=== PATIENT | male | born 1945 | race Caucasian/White ===

== ENCOUNTER → 2017-11-20 06:01 | Outpatient (CLI) | payer MEDICARE, SELFPAY ==
--- NOTE | 2017-11-20 11:01 | STRESSREP ---
Stress Test Report Date: 11/20/2017 Procedure: Exercise tolerance test/imaging study Indications: Shortness of breath/dyspnea; CAD; PCI Consent: Per the patient Procedure: The patient exercised on a Ben protocol for 8 minutes completing Stage II and 2 minutes of Stage III achieving a peak heart rate of 127 bpm (85 % predicted maximal heart rate) with a peak blood pressure 162/74 mmHg and a peak MET capacity of 9 METs. The baseline ECG demonstrated normal sinus rhythm with nonspecific ST/T-wave abnormality. The peak exercise ECG demonstrated approximately 1-2 mm of horizontal/downsloping ST segment depression in leads II, III, aVF, and V4 through V6 with resolution towards baseline beginning by approximately 1 minute in recovery. There was a rare PVC during exercise. The functional capacity was considered good. There was no complaint of chest discomfort during exercise or recovery. The examination was discontinued secondary to dyspnea. Impression: 1. Technically adequate (percent predicted maximal heart rate greater than 85%) exercise tolerance test 2. Peak exercise ECG straight at approximately 1-2 mm of horizontal/downsloping ST segment depression in leads II, III, aVF, and V4 through V6 with resolution towards baseline beginning by approximately 1 minute in recovery 3. Was a rare PVC during exercise. 4. Nuclear images pending Myocardial perfusion imaging study: Technique: The patient was injected with 14.8 mCi of technetium 99m Cardiolite and subsequently rest SPECT Cardiolite nuclear imaging was obtained in the horizontal long, vertical long, and short axis views. The patient exercised on a Ben protocol for 8 minutes completing Stage II and 2 minutes of Stage III achieving a peak heart rate of 127 bpm (85 % predicted maximal heart rate) with a peak blood pressure 162/74 mmHg and a peak MET capacity of 9 METs. The patient was injected with 44.1 mCi of technetium 99m Cardiolite and subsequently stress SPECT Cardiolite nuclear imaging was obtained in the horizontal long, vertical long, and short axis views. A gated Cardiolite study at peak stress was obtained. Interpretation: Rest and stress SPECT Cardiolite nuclear imaging status post realignment, normalization, and attenuation correction, demonstrates the appearance of a small area of diminished tracer uptake near the apical segments which appears to be somewhat more prominent at rest as opposed to stress. There is end systolic thickening and brightening. The gated Cardiolite study demonstrates myocardial thickening and inward wall motion. The reported LVEF is 73 %. Impression: 1. Rest and stress SPECT Cardiolite nuclear imaging demonstrate a small area of diminished tracer uptake near the apical segments which appears to be somewhat more prominent at rest as opposed to stress appearing compatible with a combination of shifting soft tissue attenuation/artifact and physiologic apical thinning is consider diagnostic for associated stress-induced myocardial ischemia or previous myocardial injury/infarction. 2. The gated Cardiolite study reports an LVEF of the 73%. This note was generated with [employer] software. It may contain incorrect words, spelling, and punctuation that were not noted in checking the note before signing.
--- NOTE | 2017-11-20 11:08 | STRESSREP_ITS ---
Stress Test Report Date: 11/20/2017 Procedure: Exercise tolerance test/imaging study Indications: Shortness of breath/dyspnea; CAD; PCI Consent: Per the patient Procedure: The patient exercised on a Ben protocol for 8 minutes completing Stage II and 2 minutes of Stage III achieving a peak heart rate of 127 bpm (85 % predicted maximal heart rate) with a peak blood pressure 162/74 mmHg and a peak MET capacity of 9 METs. The baseline ECG demonstrated normal sinus rhythm with nonspecific ST/T-wave abnormality. The peak exercise ECG demonstrated approximately 1-2 mm of horizontal/downsloping ST segment depression in leads II, III, aVF, and V4 through V6 with resolution towards baseline beginning by approximately 1 minute in recovery. There was a rare PVC during exercise. The functional capacity was considered good. There was no complaint of chest discomfort during exercise or recovery. The examination was discontinued secondary to dyspnea. Impression: 1. Technically adequate (percent predicted maximal heart rate greater than 85% ) exercise tolerance test 2. Peak exercise ECG straight at approximately 1-2 mm of horizontal/ downsloping ST segment depression in leads II, III, aVF, and V4 through V6 with resolution towards baseline beginning by approximately 1 minute in recovery 3. Was a rare PVC during exercise. 4. Nuclear images pending Myocardial perfusion imaging study: Technique: The patient was injected with 14.8 mCi of technetium 99m Cardiolite and subsequently rest SPECT Cardiolite nuclear imaging was obtained in the horizontal long, vertical long, and short axis views. The patient exercised on a Ben protocol for 8 minutes completing Stage II and 2 minutes of Stage III achieving a peak heart rate of 127 bpm (85 % predicted maximal heart rate) with a peak blood pressure 162/74 mmHg and a peak MET capacity of 9 METs. The patient was injected with 44.1 mCi of technetium 99m Cardiolite and subsequently stress SPECT Cardiolite nuclear imaging was obtained in the horizontal long, vertical long, and short axis views. A gated Cardiolite study at peak stress was obtained. Interpretation: Rest and stress SPECT Cardiolite nuclear imaging status post realignment, normalization, and attenuation correction, demonstrates the appearance of a small area of diminished tracer uptake near the apical segments which appears to be somewhat more prominent at rest as opposed to stress. There is end systolic thickening and brightening. The gated Cardiolite study demonstrates myocardial thickening and inward wall motion. The reported LVEF is 73 %. Impression: 1. Rest and stress SPECT Cardiolite nuclear imaging demonstrate a small area of diminished tracer uptake near the apical segments which appears to be somewhat more prominent at rest as opposed to stress appearing compatible with a combination of shifting soft tissue attenuation/artifact and physiologic apical thinning is consider diagnostic for associated stress-induced myocardial ischemia or previous myocardial injury/infarction. 2. The gated Cardiolite study reports an LVEF of the 73%. This note was generated with [employer] software. It may contain incorrect words, spelling, and punctuation that were not noted in checking the note before signing.
== END ==
PROVIDERS: Family Provider Family Medicine; PCP Family Medicine; Visit Provider Physician Assistant Medical
DX: I25.10 Atherosclerotic heart disease of native coronary artery without angina pectoris (principal); R06.00 Dyspnea, unspecified
CPT/HCPCS: 78452; 93017; A9500; A4216

== ENCOUNTER → 2017-12-07 07:55 | Day surgery (SDC) | payer MEDICARE, SELFPAY ==
--- NOTE | 2017-11-29 13:20 | RAD_ITS ---
STUDY: X-RAY CHEST REASON FOR EXAM: Male, 72 years old. SOB TECHNIQUE: Frontal and lateral views of the chest. COMPARISON: 09/24/2014 FINDINGS: Stable hiatal hernia. Carotid calcifications on the right. COPD without acute alveolar disease. There is no demonstrated pleural abnormality. Normal size heart. Normal mediastinum and shanae. Normal visualized pulmonary arteries. Normal visualized aortic arch and descending thoracic aorta. Normal visualized thoracic spine. Normal visualized ribs, clavicles, and shoulders. There is no demonstrated abnormality of the visualized soft tissue structures of the upper abdomen. RAD/Chest PA and Lateral IMPRESSION: COPD without acute alveolar disease. Electronically Signed: Beni Mcguire MD at 6:06 EDT Tel , Service support ,
[2017-12-06 07:50] VITALS: BMI 32.1
[2017-12-07 08:05] LABS: Prothrombin Time Fingerstick 12.7 SEC (11.9-14.4)
--- NOTE | 2017-12-07 11:21 | ECHOD_ITS ---
Reason For Study: MURMUR Procedure This was a 2D Doppler, Color Flow transthoracic echocardiogram. The exam was of fair technical quality due to body habitus. The study was technically difficult. Exam performed in department. Left Ventricle Normal LV size. Left ventricular systolic function is normal. The estimated ejection fraction is 60 %. Unable to assess diastolic dysfunction. No regional wall motion abnormalities noted. Right Ventricle Normal RV size. Normal systolic function. Atria The left atrium is moderately enlarged. The right atrium is mildly enlarged. No doppler evidence for ASD. Mitral Valve There is no mitral annular calcification. Normal mitral valve. Trivial mitral valve insufficiency. Tricuspid Valve Normal tricuspid valve. Trivial tricuspid valve insufficiency. Right ventricular systolic pressure estimated to be 39 mmHg. Aortic Valve Trisinus/trileaflet aortic valve. Mild diffuse aortic valve thickening. Mild diffuse aortic valve calcification. Aortic valve sclerosis / mild aortic valve stenosis. Pulmonic Valve The pulmonic valve is not well visualized. Trivial pulmonic valve insufficiency. Great Vessels Normal sized aortic root. Pericardium/Pleural Trivial pericardial effusion. There are no echocardiographic indications of cardiac tamponade. MMode/2D Measurements & Calculations LVIDd: 5.1 cm IVSd: 1.2 cm LVOT diam: 2.0 cm LVIDs: 2.9 cm LVPWd: 1.1 cm LVOT area: 3.0 cm2 RVDd: 3.0 cm FS: 43.9 % Ao root diam: 3.0 cm LAV(MOD-bp): 63.2 ml EDV(MOD-sp4): 97.6 ml LAV(MOD-bp) Indexed: 29.1 ml/m2 ESV(MOD-sp4): 34.7 ml LAV(MOD-sp2): 52.6 ml EF(MOD-sp4): 64.5 % LAV(MOD-sp4): 70.3 ml SV(MOD-sp4): 63.0 ml LA A4 area: 24.0 cm2 RA A4 area: 20.1 cm2 Time Measurements MV dec time: 0.20 sec Doppler Measurements & Calculations MV E max omar: 84.4 cm/sec Lat Peak E' Omar: 10.8 cm/sec Med Peak E' Omar: 9.4 cm/sec MV A max omar: 64.9 cm/sec E/E' lat: 7.8 E/E' med: 9.0 MV E/A: 1.3 Ao V2 max: 251.3 cm/sec LV V1 max: 163.8 cm/sec SV(LVOT): 115.6 ml Ao max P.3 mmHg LV V1 max P.7 mmHg Ao V2 mean: 174.5 cm/sec LV V1 mean P.3 mmHg Ao mean P.7 mmHg LV V1 mean: 105.5 cm/sec Ao V2 VTI: 55.1 cm LV V1 VTI: 38.5 cm BASHIR(I,D): 2.1 cm2 BASHIR(V,D): 2.0 cm2 PA V2 max: 114.7 cm/sec TR max omar: 300.2 cm/sec TR max P.1 mmHg Interpretation Summary The study was technically difficult. Left ventricular systolic function is normal. The estimated ejection fraction is 60 %. The left atrium is moderately enlarged. The right atrium is mildly enlarged. Trivial mitral valve insufficiency. Trivial tricuspid valve insufficiency. Aortic valve sclerosis / mild aortic valve stenosis. Trivial pulmonic valve insufficiency. Trivial pericardial effusion. There are no echocardiographic indications of cardiac tamponade. Right ventricular systolic pressure estimated to be 39 mmHg. Unable to assess diastolic dysfunction. Ordering Physician: Jason Stevenson Referring Physician: KEIRY KAY Performed By: Shadia Hoffman RDCS
--- NOTE | 2017-12-07 19:10 | CL.D_ITS ---
Patient Name: RAVI ADDISON Study Date: 12/07/2017 Performing: Jason Stevenson MD Ht: 70 inches 178 cm : 1945 Wt: 225.2 lbs 102 kg Age: 72 Gender: male BSA: 2.2 PROCEDURE(S) PERFORMED [id number] CLINICAL PROFILE AND INDICATIONS Indications: Stable Known CAD Heart Failure: None Stress/Imaging Stress Test w/SPECT MPI: Yes Result: PositiveStress Test with SPECT MPI: Positive Angina Classification Anginal Classification w/in 2 Weeks: CCS III CAD Presentations: Other: Shortness of Breath CONCLUSIONS RECOMMENDATIONS Risk factor modification Medical therapy Surgery consult for coronary revascularization DESCRIPTION OF PROCEDURE The patient arrived to the procedure lab. The risks and benefits of the procedure as well as a full d escription of our services here and current unavailability of surgical backup were fully explained to the patient and/or their significant other prior to the catheterization. The Timeout was completed, verifying the correct patient and procedure. The patient's procedural site was prepped and draped in the usual fashion. Local anesthetic was given subcutaneously to right radial region with Lidocaine 2% . Using a modified Seldinger technique, arterial access was obtained via the right radial artery, a 6 Fr sheath was inserted. Left Coronary Artery selective angiography was performed in multiple views u sing a 5 Fr. 4.0 Reserve catheter. Right Coronary Artery selective angiography was then performed in mu ltiple views using a 4 Fr. 3DRC catheter.The arterial sheath was pulled and a TR Band was applied for hemostasis CORONARY ANGIOGRAPHY DOMINANCE: Right Dominant LEFT HEART ASSESSMENT Left Ventricular Ejection Fraction: Not assessed LEFT MAIN: Upon catheter engagement: decreased arterial wave form and pressure damping and decreased reflux into the left coronary cusp, Proximal: 50-75 % Stenosis LEFT ANTERIOR DECENDING ARTERY: PROX LAD: Eccentric: 75 % Stenosis CIRCUMFLEX ARTERY: Mild luminal irregularities RIGHT CORONARY ARTERY: PROX RCA: Diffuse: Eccentric: 10-25 % Stenosis DISTAL RCA: Previously placed stent is patent RIGHT AV SEGMENT: Previously placed stent is patent COMPLICATIONS No Complications PROCEDURE MEDICATIONS Versed 1 mg IV Fentanyl 50 mcg IV Oxygen: 2 L/min via nasal cannula Heparin given IA 12/07/2017 10:17:42 Verapamil 2.5mg, Ntg 100mcgs, 2000 units of Heparin given IA 12/07/2017 10:17:42 SUMMARY OF HEMODYNAMIC DATA Time AIR REST ECG 08:36:58 AO 100/57 (76) SA 10:20:37 Signed By Jason Stevenson MD On 12/07/2017 19:09:39 Jason Stevenson MD
== END ==
PROVIDERS: Family Provider Family Medicine; PCP Family Medicine; Visit Provider Internal Medicine Cardiovascular Disease
DX: I25.10 Atherosclerotic heart disease of native coronary artery without angina pectoris (principal); I48.0 Paroxysmal atrial fibrillation; I10 Essential (primary) hypertension; E78.00 Pure hypercholesterolemia, unspecified; J84.10 Pulmonary fibrosis, unspecified; E05.90 Thyrotoxicosis, unspecified without thyrotoxic crisis or storm; R01.1 Cardiac murmur, unspecified; Z87.891 Personal history of nicotine dependence; Z96.659 Presence of unspecified artificial knee joint; Z95.5 Presence of coronary angioplasty implant and graft; Z79.82 Long term (current) use of aspirin; Z79.01 Long term (current) use of anticoagulants; Z79.899 Other long term (current) drug therapy
CPT/HCPCS: 36416; 71046; 85610; 93306; 93454; 93458; 99152; 99153; J7040; Q9967; A4216; C1769; C1894

== ENCOUNTER → 2017-12-27 07:39 | Outpatient (CLI) | payer MEDICARE, SELFPAY ==
--- NOTE | 2017-12-27 07:43 | ECHOTEE_ITS ---
Reason For Study: AORTIC VALVE DISORDER Medication JUAN probe passed without difficulty. No complications were noted. Cetacaine Topical [place] given X3 orally. Versed 2 mg given slow IVP. Fentanyl 100 mcg given slow IVP. Performed a rapid injection of agitated mix of 9 cc saline and 1cc air to assess for atrial septal defect. Left Ventricle Normal LV size. Apical false tendon noted. Left ventricular systolic function is normal. The estimated ejection fraction is 65 %. No regional wall motion abnormalities noted. Right Ventricle Normal RV size. Normal systolic function. Atria No doppler evidence for ASD. Bubble contrast study negative for right to left interatrial shunt. The left atrium is moderately enlarged. There is no sponatenous contrast in the left atrium. No thrombus is detected in the left atrial appendage. The right atrium is mildly enlarged. There is no sponatenous contrast in the right atrium. No RA / appendage thrombus identified. Mitral Valve There is mild mitral annular calcification. Mild diffuse mitral valve thickening. Mild (1+) mitral valve insufficiency. Tricuspid Valve Normal tricuspid valve. Trivial tricuspid valve insufficiency. Aortic Valve Trisinus/trileaflet aortic valve. Mild diffuse aortic valve thickening. Mild focal aortic valve calcification. Mild aortic stenosis. Aortic valve area by planimetry: approximately 2.0 cm^2. Pulmonic Valve The pulmonic valve is not well visualized. Vessels Mild atherosclerosis of the aortic arch. Pericardium No pericardial effusion. Interpretation Summary Left ventricular systolic function is normal. The estimated ejection fraction is 65 %. Apical false tendon noted. The left atrium is moderately enlarged. There is no sponatenous contrast in the left atrium. No thrombus is detected in the left atrial appendage. The right atrium is mildly enlarged. There is mild mitral annular calcification. Mild diffuse mitral valve thickening. Mild (1+) mitral valve insufficiency. Trivial tricuspid valve insufficiency. Mild aortic stenosis. Aortic valve area by planimetry: approximately 2.0 cm^2 Mild atherosclerosis of the aortic arch. Bubble contrast study negative for right to left interatrial shunt. Ordering Physician: Jason Stevenson Referring Physician: KEIRY KAY Performed By: Brigida Guzman RDCS, RVT ??? Reason For Study: AORTIC VALVE DISORDER Interpretation Summary Left ventricular systolic function is normal. The estimated ejection fraction is 65 %. Apical false tendon noted. The left atrium is moderately enlarged. There is no sponatenous contrast in the left atrium. No thrombus is detected in the left atrial appendage. The right atrium is mildly enlarged. There is mild mitral annular calcification. Mild diffuse mitral valve thickening. Mild (1+) mitral valve insufficiency. Trivial tricuspid valve insufficiency. Mild aortic stenosis. Aortic valve area by planimetry: approximately 2.0 cm^2 Mild atherosclerosis of the aortic arch. Bubble contrast study negative for right to left interatrial shunt. Ordering Physician: Jason Stevenson Referring Physician: KEIRY KAY Performed By: Brigida Guzman RDCS, RVT
== END ==
PROVIDERS: Family Provider Family Medicine; PCP Family Medicine; Visit Provider Internal Medicine Cardiovascular Disease
DX: I35.0 Nonrheumatic aortic (valve) stenosis (principal); I35.9 Nonrheumatic aortic valve disorder, unspecified
CPT/HCPCS: 93312; 93320; 93325; J7040; A4216

== ENCOUNTER → 2018-01-03 15:01 | Outpatient (CLI) | payer MEDICARE, SELFPAY ==
--- NOTE | 2018-01-03 15:04 | RAD_ITS ---
STUDY: X-RAY - CERVICAL SPINE REASON FOR EXAM: Male, 72 years old. Cervicalgia. TECHNIQUE: 6 view(s) of the cervical spine were obtained. COMPARISON: None FINDINGS: Slight anterior listhesis C3-C4, chronic. Alignment of the vertebral bodies is otherwise normal. Vertebral body height is normal at each level. Generalized osteopenia. Mild to moderate multilevel facet arthropathy/hypertrophy most prominent in the upper cervical spine left greater than right. The odontoid and lateral masses are intact and aligned. Prevertebral soft tissues are normal. C3-C4 moderate disc narrowing, spondylolisthesis, and uncovertebral joint hypertrophy and moderate facet hypertrophy. C4-C5 moderately severe disc narrowing, facet moderate hypertrophy and uncovertebral joint hypertrophy. C5-C6 moderate disc narrowing, facet hypertrophy and uncovertebral joint hypertrophy. C6-C7 severe disc narrowing, endplate sclerosis, uncovertebral joint hypertrophy and mild facet hypertrophy. C7-T1 mild disc narrowing and uncovertebral joint hypertrophy. There is evidence of prominent carotid bulb atherosclerotic ossifications on the right. RAD/Cerv Spine 4 or 5 Views IMPRESSION: Multilevel cervical spondylosis. No acute cervical spine fracture or traumatic subluxation. Given the degree of facet hypertrophy and disc degeneration at multiple levels, significant stenosis is highly likely. Correlate for any symptoms of cervical radiculopathy that may indicate the presence of nerve root impingement and consider follow-up MRI of the cervical spine for more complete characterization. Electronically Signed: Chao Trejo, at 15:47 EDT Tel , Service support ,
== END ==
PROVIDERS: Family Provider Family Medicine; PCP Family Medicine; Visit Provider Family Medicine
DX: M54.2 Cervicalgia (principal)
CPT/HCPCS: 72050

== ENCOUNTER → 2018-01-15 08:52 | Outpatient (CLI) | payer MEDICARE, SELFPAY ==
--- NOTE | 2018-01-15 14:42 | PFT ---
INTRODUCTION: The patient is a 72-year-old male that presents for pulmonary function testing secondary to a diagnosis of shortness of breath. Respiratory therapy reports good patient effort. Bronchodilators were used during testing. INTERPRETATION: Forced expiration spirometry demonstrates no evidence of a large airways obstructive ventilatory defect. There was no significant response to aerosolized bronchodilators, based upon strict ATS criteria. Spirograms are of good quality and plateau normally. Body plethysmography was performed and reveals a borderline mild restrictive ventilatory impairment. The remainder of the lung volumes are symmetrically reduced. The patient's decreased ERV could be secondary to a body habitus effect. Diffusing capacity by single breath CO is mildly reduced at 64% of predicted. When compared to previous pulmonary function studies dated September 2014 there has been reductions in the patient's FVC and FEV1. The patient's DLCO has also decreased by 15%. IMPRESSION: These pulmonary function studies demonstrate the presence of a borderline mild restrictive ventilatory impairment with a symmetric reduction in diffusing capacity.
== END ==
PROVIDERS: Family Provider Family Medicine; PCP Family Medicine
DX: I48.0 Paroxysmal atrial fibrillation (principal); R06.02 Shortness of breath
CPT/HCPCS: 94060; 94726; 94729

== ENCOUNTER → 2018-04-16 13:45 | Outpatient (CLI) | payer MEDICARE, SELFPAY ==
[2018-04-16 15:03] LABS: PSA,Total - Annual Screen 0.43 ng/mL (0.00-4.00)
== END ==
PROVIDERS: Family Provider Family Medicine; PCP Family Medicine; Referring Provider Urology; Visit Provider Urology
DX: Z12.5 Encounter for screening for malignant neoplasm of prostate (principal)
CPT/HCPCS: 36415; 84153; G0103

== ENCOUNTER → 2018-04-19 12:48 | Outpatient (CLI) | payer MEDICARE, SELFPAY ==
--- NOTE | 2018-04-19 12:54 | PCM.CR.ITP ---
General Information - General Information Admitting Diagnosis: Z95.1 CABG 03/05/18 - Education/Goals Barriers to Learning: None Cardiac Rehabilitation Goals: 1. Maintain the individual as the primary focus of care. 2. To improve the patient's quality of life. 3. Identification of cardiac risk factors and provide cardiac risk factor management. 4. Enhance the psychosocial status of the patient. 5. Reconditioning enough to allow the patient to resume customary activities. 6. Control symptoms of cardiac disease Scale for measuring improvement of personal goals: Enter appropriate number in Comments. 2 = Unchanged. 3 = Slightly Better. 4 = Moderate Improvement. 5 = Met my Goal Personal Goals: Initial Assessment: Improve energy level, Improve muscle strength and endurance, Improve diet and eating habits (eat healthier), Control risk factors (learn risk factor modification) Exercise - Initial Assessment - Visit Date of Eval: 04/19/18 - inblas beywa - Stages of Change Stages of Change:: Contemplate - Exercise Prescription Mode:: Treadmill, Biodyne, Airdyne, NuStep Angina with exercise?: No Target Heart Rate:: 112-120 - Hypertension Do any of the following apply?: Yes - Intervention Home Exercise/Activity Goal:: Sitting Time <3 hrs/day - Education Goals:: Warm-up, RPE JENNIFER Scale, S/S, Safe Exercise, Self-Monitoring - Exercise Program Goals Exercise Program Goals: Aerobic Activity >30 min, B/P <130/80 Nutrition - Initial Assessment - Program Goals Nutrition Program Goals: LDL <70. Total Cholesterol <200. HDL >45. Triglycerides <150. HgbA1C <7%. BMI <25 - Visit Date of Assessment:: 04/19/18 - Stages of Change Stages of Change:: Contemplate - Diabetes Diabetes:: No - Weight Management Height: 1.78 m Weight:: 101.605 kg Total Score:: 4 - Intervention Referral to dietitian:: No Referral to Diabetic Clinic:: No Will attend diet classes:: Yes - Education Gave educational materials for:: Signs & symptoms of hypoglycemia, Signs & symptoms of hyperglycemia, Relate diabetes to coronary artery disease, Healthy eating Tobacco - Initial Assessment - Program Goals Tobacco Program Goals: Complete smoking cessation. Attend education classes. Improve Knowledge Test score - Stage of Change Stages of Change:: Contemplate - Learning Barriers Total Score:: 20 - Family Support Do you have family support?: Yes - Tobacco Use Tobacco Use: Non-smoker Do you use smokeless tobacco?: No - Intervention Smoking Cessation Referral:: No Individual Education/Counseling:: No Education Schedule Given:: Yes - Education Gave educational material for:: Tobacco triggers, Coronary artery disease, Risk factors, Sexuality, Medical compliance, Cardiac A&P, Angina signs & symptoms Psychosocial - Initial Assess - Target Goals Target Goals: Assess presence or absence of depression. Using a valid screening tool, maximizes coping skills. Positive support system - Stages of Change Stages of Change:: Contemplate - Psychosocial Test Tool Used:: HANDS Depression Questionnaire Total Mood Screening Score:: 4 Self-Efficacy Score:: 8 - Intervention PS - Interventions: Yes Attend Stress Management Classes, Yes Uses Stress Management Skills, No Referral to Mental Health, No Referral to [facility] Case Management, No Referral to Physician - Education Gave educational materials for:: Coping techniques, Signs & symptoms of depression, Stress management, Relaxation techniques - Assistive Devices Assistive Devices:: None Fall Risk Assessed:: Yes Patient Health Questionnaire Initial Assessment 1. Little interest or pleasure in doing things: Not at all 2. Feeling down, depressed, or hopeless: Not at all 3. Trouble falling or staying asleep, or sleeping too much: More than half the days 4. Feeling tired or having little energy: Several days 5. Poor appetite or overeating: Several days 6. Feeling bad about yourself -- or that you are a failure or have let yourself or your family down: Not at all 7. Trouble concentrating on things, such as reading the newspaper or watching television: Not at all 8. Moving or speaking so slowly that other people could have noticed. Or the opposite - being so fidgety or restless that you have been moving around a lot more than usual: Not at all 9. Thoughts that you would be better off , or of hurting yourself in some way: Not at all How difficult have these problems made it for you to do your work, take care of things at home, or get along with other people?: Somewhat difficult Total Score: 4 MIKE-Q SV Test - Statements CAD is a disease of the arteries in the heart: False Examples of risk factors for heart disease: True Angina is chest pain or discomfort: True The benefits of resistance training include: True Eating more meat and dairy products: False Anti-platelet medications such as aspirin are important: True The only effective way to manage stress: False An exercise warm-up slowly increases heart rate: True Prepared, processed foods usually have high sodium: True Depression is common after a heart attack: True The statin medications lower cholesterol: True To control blood pressure, lower the amount of sodium: True If someone gets chest discomfort during walking: False Transfats are partially hydrogenated vegetable oils: True Sleep apnea that is not treated increases the risk: False To control cholesterol, one should become a vegetarian: False Someone knows if he/she is exercising at the right level: True Diabetes cannot be prevented with exercise & health eating: False Stress is a large risk for heart attack: True A diet that can help lower blood pressure is rich in: True - Total Score Total Correct Responses: 20 Self-Efficacy Initial Assessment We would like to know how confident you are in doing certain activities. Please select your confidence level for:: Select your confidence level for the following using the scale 1-10 where 1 is not at all confident and 10 is totally confident. Your score is the average of all 6 responses. Fatigue: How confident are you that you can keep the fatigue caused by your disease from interfering with the things you want to do? Select Number: 10 Physical Discomfort or Pain: How confident are you that you can keep the physical discomfort or pain of your disease from interfering with the things you want to do? Select Number: 10 Emotional Distress: How confident are you that you can keep the emotional distress caused by your disease from interfering with the things you want to do? Select Number: 8 Other Symptoms or Health Problems: How confident are you that you can keep other symptoms or health problems from interfering with the things you want to do? Select Number: 8 Different Tasks and Activities: How confident are you that you can do the different tasks and activities needed to manage your health condition so as to reduce your need to see a doctor? Select Number: 8 Medication: How confident are you that you can do things other than just taking medication to reduce how much your illness affects your everyday life? Select Number: 8 Total Score:: 8 Nutrition Survey - Nutrition Survey Instructions Scoring Instructions: Scoring is as follows: Yes = 1 points. No = 0 point. Patient score that is >/=12 is considered to be at potential nutritional risk and could benefit from a referral to a registered dietitian. - Nutrition Survey Initial Have you lost >10 lbs over the past 2 months without trying?: Yes Are you following a special diet at home for diabetes, low fat, or low salt?: No Are you interested in meeting with a dietitian for help understanding your diet?: Yes Do you eat less than 3 meals a day?: No Do you eat fatty meats (garnica, sausage, ribs, etc), fried foods, desserts, large amounts of salad dressings, margarine, butter, or cheese most days?: Yes Do you have food allergies? [Enter types in comment field]: No Do you eat in restaurants more than 3 times a week?: No Do you season food with salt, seasoning salt, or garlic salt?: No Do you used canned, boxed, frozen meals, or soups, seasoning packets?: Yes Total Score:: 4
--- NOTE | 2018-04-19 12:55 | PCM.CR.HP2 ---
CR - History & Physical - General Arrival date:: 04/19/18 Arrival time:: 12:56 Date of Referral:: 03/05/18 Date of CR Evaluation:: 04/19/18 Referring Physician: Dr. Jason Stevenson Primary Diagnosis: Z95.1 CABG - History of Present Cardiac Event Onset Date: Enter Onset Date of cardiac illnesses in Comment field below Coronary Artery Bypass Graft:: Yes - Medications Home Medications: Ambulatory Orders Medication Instructions Recorded alfuzosin ER 10 mg tablet,extended 10 mg PO QDAY 06/27/17 release 24 hr finasteride 5 mg tablet 5 mg PO QDAY 06/27/17 hydrochlorothiazide 25 mg tablet 25 mg PO QDAY 06/27/17 aspirin 81 mg tablet,delayed 81 mg PO QDAY 08/09/17 release warfarin 2 mg tablet 2 mg PO .COMPLEX #90 tab 10/02/17 warfarin 6 mg tablet 6 mg PO ONCE #90 tab 10/02/17 methimazole 5 mg tablet 2.5 mg PO .COMPLEX tab 11/28/17 cholecalciferol (vitamin D3) 2,000 1,000 unit PO DAILY cap 04/15/18 unit capsule diltiazem CD 120 mg 120 mg PO DAILY cap 04/15/18 capsule,extended release 24 hr pravastatin 40 mg tablet 40 mg PO QHS tab 04/15/18 fluticasone 50 mcg/actuation nasal 1 spray INTRANASAL DAILY 04/18/18 spray,suspension magnesium oxide 400 mg tablet 400 mg PO DAILY tab 04/18/18 metoprolol tartrate 25 mg tablet 25 mg PO BID #180 tab 04/18/18 pyridoxine (vitamin B6) 50 mg 50 mg PO DAILY 04/18/18 capsule - Allergies Allergies/Adverse Reactions: Allergies amiodarone Adverse Reaction (Severe, Verified 04/18/18 13:51) pulmonary fibrosis Hsgmhfo-Pec-Rgq Reductase Inhibitor Adverse Reaction (Severe, Verified 04/18/18 13:51) myalgias - Sleep Disorder Evaluation Hx of Sleep Apnea: Yes Do you snore loudly (louder than talking or can be heard through closed doors)?: Yes - uses machine Do you often feel tired/ fatigued/ sleepy during daytime?: No Has anyone observed you stop breathing during sleep?: No History of Hypertension (for STOP score): Yes STOP Results: Positive Advanced Directives - Advanced Directives Power of Transformer Inspector: Yes Living Will: Yes Advance Directives Information Provided: Yes Advance Directives on File: Yes DNR Order?:: No Past Medical History - Past Medical Illness Medical History: Past Medical History (Last Reviewed 04/18/18 @ 13:57 by Heike Rodriguez) Essential hypertension (Chronic) I10 Paroxysmal atrial fibrillation (Acute) I48.0 Presence of stent in coronary artery (Chronic) Onset Date: ~04/2013 Z95.5 PTCA with KENDRA to proximal 3rd right posterolateral artery 04/27 Abnormal nuclear stress test (Acute) R94.39 Pulmonary fibrosis (Chronic) J84.10 Hyperlipidemia (Chronic) E78.5 Shortness of breath (Chronic) R06.02 Atherosclerotic heart disease of [place] coronary artery without angina pectoris (Chronic) I25.10 PTCA with KENDRA to proximal 3rd right posterolateral artery 04/27 Hyperthyroidism (Chronic) E05.90 Murmur, cardiac (Chronic) R01.1 Paroxysmal atrial fibrillation (Chronic) I48.0 Nontoxic nodular goiter E04.9 - Past Surgical History Surgical History: Past Surgical History (Last Reviewed 04/18/18 @ 13:57 by Heike Rodriguez) S/P coronary artery bypass graft x 3 (Chronic) Onset Date: ~02/28/18 Z95.1 CABG x3- JUAREZ to LAD, reverse SVG to the diagonal branch and SVG to the OM; exclusion of the left atrial appendage with a 40mm AtriCure clip @ [facility] Postsurgical percutaneous transluminal coronary angioplasty (PTCA) status Z98.61 PTCA with KENDRA to proximal 3rd right posterolateral artery 04/27 History of cardiac radiofrequency ablation Onset Date: ~12/01/05 Z98.890 for Atrial Flutter History of carpal tunnel release Z98.890 History of knee replacement Z96.659 Bilateral History of thyroid surgery Z98.890 thyroid lobectomy Rt lobe with isthmusectomy - Family History Summary Family History: Family History (Last Reviewed 04/18/18 @ 13:57 by Heike Rodriguez) Father CAD (coronary artery disease) Myocardial infarction Mother CAD (coronary artery disease) Myocardial infarction Sister , from ASA allergy Asthma Social History - Smoking History Smoking Status: Former smoker Years Smokin Hx Tobacco Use: Yes Hx Smoking Exposure: Yes - Alcohol Use Alcohol Usage: No - Substance Abuse Hx Substance Use: No - Occupation Occupation (List type of work in comments):: Employed Hours worked per day:: 6 - Hobbies, Recreation, Social Activities Hobbies: Other - trap shooting Recreational Activities: I am able to engage in all my recreational activities, I am able to engage in a few activities Social Environment - Status Marital Status: - Current Living Arrangements Living Environment:: Spouse - Children How many children do you have?: 2 Do any of your children live nearby?: Yes - Safety Do you feel safe in your surroundings?: Yes - Assistance Do you need any assistance at home?: none Review of Systems - Review of Systems Hints: Right click = Denies ([place]). Left click = Reports ([place]) Review of Present Symptoms: Reports: Heart Arrhythmia/Irregularities - A-fib, Appetite - Normal. Denies: Shortness of Breath at Rest, Shortness of Breath with Exertion, PVD, Operative Discomfort, Angina, Wound Healing, Dizziness/Lightheadedness, Fatigue, Appetite - Special Diet, Sleep - Normal - wakes up, Sexual Changes - Pain Is Patient Pain Free?: Yes Pain Location: none Risk Factor Assessment - Chief Complaint Chief Complaint: Z95.1 CABG - Vital Signs Pulse Ox: 96 - Pulse Pulse Rate: 80 Pulse Rhythm: Irregular - Hypertension Blood Pressure Sitting - Left Arm: 100/60 - Stress Stress: Home/Family - Diabetes Nutrition Referral for Diabetes: No - Obesity Height: 1.78 m Weight:: 101.605 kg Weight in Pounds: 224.0 lbs Weight Source: Standing Scale Body Mass Index (BMI): 32.1 Nutritional Referral for Obesity: No - Physical Inactivity Physical Inactivity: Reg Exercise 30 min/day - Risk Stratification Risk Guidelines: Moderate Risk: Risk Factor for Smoking, Risk Factor for Diabetes, Risk Factor for Obesity, Risk Factor for Sedentary Lifestyle, Risk Factor for Depression, Highest Risk: Risk Factor for Dyslipidemia, Risk Factor for Hypertension - For Smoking Smoking Risk Guidelines: Smoking Low Risk: None or quit greater than 6 months ago. Smoking Moderate Risk: Smoker or quit 6 months or less ago. Smoking High Risk: Smoker - For Dyslipidemia Dyslipidemia Risk Guidelines: Low Risk: Moderate Risk: High Risk: 15-25% fat 25.1-29% fat >/= 30% fat. <7% sat fat 7-9% sat fat >9% sat fat. <150 mg chol 150-299 mg chol >/= 300 mg chol. LDL <100 LDL 100-129 LDL >/= 130. Chol/HDL ratio <5.0 Chol/HDL ratio 5.0-6.0 Chol/HDL ratio >6.0. Triglycerides <100 Triglycerides 100-149 Triglycerides >/= 150 - For Diabetes Mellitus Diabetes Risk Guidelines: Diabetes Low Risk: HgA1c <6.5% and/or FBG <120. Diabetes Moderate Risk: HgA1c 6.6-7.9% and/or FBG 120-180. Diabetes High Risk: HgA1c >/= 8% and/or FBG >180 - For Obesity/Overweight Obesity/Overweight Risk Guidelines: Obesity Low Risk: BMI <25.0. Obesity Moderate Risk: BMI 25-29.9. Obesity High Risk: BMI >/= 30.0 - For Hypertension Hypertension Risk Guidelines: Hypertension Low Risk: Systolic <120 and Diastolic <80. Hypertension Moderate Risk: Systolic 120-139 and Diastolic 80-89. Hypertension High Risk: Systolic >/= 140 and Diastolic >/= 90 - For Sedentary Lifestyle Sedentary Lifestyle Risk Guidelines: Sedentary Lifestyle Low Risk: >/= 1,500 kcal/week. Sedentary Lifestyle Moderate Risk: 700-1,499 kcal/week. Sedentary Lifestyle High Risk: < 700 kcal/week - For Depression Depression Risk Guidelines: Depression Low Risk: Not clinically depressed. Depression Moderate Risk: Mildly depressed. Depression High Risk: Clinically depressed - Family History Family History: Family History (Last Reviewed 04/18/18 @ 13:57 by Heike Rodriguez) Father CAD (coronary artery disease) Myocardial infarction Mother CAD (coronary artery disease) Myocardial infarction Sister Asthma Motivation - Motivation to Participate On a scale of 1 to 10, how prepared are you to commit to attending program?: 10 What do you see as barriers to successfully being able to complete the program?: none What do you see as the benefits of succesfully completing the program? In other words, what do you hope to get out of participating in the program?: improved strength ane endurance Are there issues you are dealing with that will interfere with completing the program?: none Do you have a spouse or signficant other, family or friends who will help support you to complete the program?: yes
[2018-04-19 13:53] VITALS: BP 100/60; PULSE 80; O2SAT 96; BMI 32.1
== END ==
PROVIDERS: Family Provider Family Medicine; PCP Family Medicine; Visit Provider Internal Medicine Cardiovascular Disease
DX: I25.10 Atherosclerotic heart disease of native coronary artery without angina pectoris (principal); R94.39 Abnormal result of other cardiovascular function study; I10 Essential (primary) hypertension; I48.0 Paroxysmal atrial fibrillation; J84.10 Pulmonary fibrosis, unspecified; E78.5 Hyperlipidemia, unspecified; E05.90 Thyrotoxicosis, unspecified without thyrotoxic crisis or storm; E04.9 Nontoxic goiter, unspecified; Z95.1 Presence of aortocoronary bypass graft; Z98.61 Coronary angioplasty status; Z79.82 Long term (current) use of aspirin; Z79.01 Long term (current) use of anticoagulants; Z79.899 Other long term (current) drug therapy; Z87.891 Personal history of nicotine dependence

== ENCOUNTER → 2018-04-23 11:18 | Outpatient (CLI) | payer MEDICARE, SELFPAY ==
--- NOTE | 2018-04-23 15:26 | STRESSREP ---
Stress Test Report Date: 04/23/2018 Procedure: Exercise tolerance test Indications: CAD; status post CABG; post PCI; atrial fibrillation precardiac rehabilitation Consent: Per the patient Procedure: The patient exercised on a Ben protocol for 3 minutes and 30 seconds completing Stage I and 30 seconds of Stage II achieving a peak heart rate of 123 bpm (82 % predicted maximal heart rate) with a peak blood pressure 146/78 mmHg and a peak MET capacity of approximately 5 MET's. The baseline ECG demonstrated atrial fibrillation; nonspecific ST and T wave abnormality. The peak exercise ECG demonstrated no obvious ECG changes. There were no cardiac dysrhythmias pretest, during exercise, or recovery. The functional capacity was considered decreased. The patient had no complaint of chest discomfort during exercise or recovery. The examination was discontinued secondary to dyspnea. Impression: 1. Technically inadequate (percent predicted maximal heart rate less than 85%) exercise tolerance test 2. Peak exercise ECG with new atrial fibrillation with nonspecific ST and T wave abnormality with no obvious ECG changes 3. There were no cardiac dysrhythmias during exercise or recovery This note was generated with [employer] software. It may contain incorrect words, spelling, and punctuation that were not noted in checking the note before signing.
== END ==
PROVIDERS: Family Provider Family Medicine; PCP Family Medicine; Referring Provider Internal Medicine Cardiovascular Disease; Visit Provider Internal Medicine Cardiovascular Disease
DX: I25.10 Atherosclerotic heart disease of native coronary artery without angina pectoris (principal)
CPT/HCPCS: 93017

== ENCOUNTER 2018-05-15 10:15 | Outpatient (RCR) | payer MEDICARE, SELFPAY | END 2018-05-15 23:59 | LOC: CR 10:15 | PROVIDERS: Family Provider Family Medicine; PCP Family Medicine; Referring Provider Internal Medicine Cardiovascular Disease; Visit Provider Internal Medicine Cardiovascular Disease | DX: Z95.1 Presence of aortocoronary bypass graft (principal) | CPT/HCPCS: 93798 ==

== ENCOUNTER 2018-06-14 10:15 | Outpatient (RCR) | payer MEDICARE, SELFPAY ==
--- NOTE | 2018-05-20 08:22 | PCM.CR.ITP ---
Exercise - 30-day Assessment - Visit Date of Eval: 05/20/18 Session #:: 11 - Stages of Change Stages of Change:: Action - Exercise Prescription Mode:: Treadmill, Rower, Airdyne, NuStep Frequency (x/week): 3 Duration:: 30-35 METs - Progression: 0.5-1 MET as tolerated: 5 Target Heart Rate:: 112-120 - Hypertension Resting Blood Pressure:: 108/64 Peak Exercise Blood Pressure:: 108/64 Medication Changes:: Yes - metoprolol changed - Intervention Home Exercise/Activity Goal:: Moderate Exercise 30 min/day x 5 days/wk - Education Goals:: Warm-up, RPE JENNIFER Scale, S/S, Safe Exercise, Self-Monitoring - Exercise Program Goals Exercise Program Goals: Aerobic Activity >30 min Nutrition - 30-Day Assessment - Program Goals Nutrition Program Goals: LDL <70. Total Cholesterol <200. HDL >45. Triglycerides <150. HgbA1C <7%. BMI <25 - Visit Date of Eval: 05/20/18 - Stages of Change Stages of Change:: Action - Lipids Has the patient seen the dietitian?: No - Diabetes Diabetes:: No - Weight Management Weight:: 212 lb - Intervention Referral to dietitian:: No Referral to Diabetic Clinic:: No Will attend diet classes:: Yes - Education Attended class for:: Healthy eating Tobacco - 30-Day Assessment - Program Goals Tobacco Program Goals: Complete smoking cessation. Attend education classes. Improve Knowledge Test score - Stage of Change Stages of Change:: Action - Learning Barriers Learning Barriers: Participates in education - Family Support Do you have family support?: Yes - Tobacco Use Tobacco Use: Non-smoker Do you use smokeless tobacco?: No - Intervention Smoking Cessation Referral:: No Individual Education/Counseling:: No Education Schedule Given:: Yes - Education Attended class for:: Coronary artery disease, Risk factors, Sexuality, Medical compliance, Cardiac A&P, Angina signs & symptoms Psychosocial - Initial Assess - Target Goals Target Goals: Assess presence or absence of depression. Using a valid screening tool, maximizes coping skills. Positive support system - Psychosocial Test Tool Used:: HANDS Depression Questionnaire - Assistive Devices Fall Risk Assessed:: Yes Psychosocial - 30-Day Assess - Target Goals Target Goals: Assess presence or absence of depression. Using a valid screening tool, maximizes coping skills. Positive support system - Stages of Change Stages of Change:: Action - Psychosocial Test Tool Used:: HANDS Depression Questionnaire - Intervention PS - Interventions: Yes Attend Stress Management Classes, Yes Uses Stress Management Skills, No Referral to Mental Health, No Referral to [facility] Case Management, No Referral to Physician - Education Attended classes for:: Coping techniques, Signs & symptoms of depression, Stress management, Relaxation techniques - Patient/Program Goal Preventative Medication(s):: Aspirin, Clopidogrel, Beta olga, Statin/lipid - Assistive Devices Assistive Devices:: None Fall Risk Assessed:: Yes Patient Health Questionnaire 30-Day Re-eval Assessment 1. Little interest or pleasure in doing things: Not at all 2. Feeling down, depressed, or hopeless: Not at all 3. Trouble falling or staying asleep, or sleeping too much: Several days 4. Feeling tired or having little energy: Several days 5. Poor appetite or overeating: Not at all 6. Feeling bad about yourself -- or that you are a failure or have let yourself or your family down: Not at all 7. Trouble concentrating on things, such as reading the newspaper or watching television: Not at all 8. Moving or speaking so slowly that other people could have noticed. Or the opposite - being so fidgety or restless that you have been moving around a lot more than usual: Not at all 9. Thoughts that you would be better off , or of hurting yourself in some way: Not at all How difficult have these problems made it for you to do your work, take care of things at home, or get along with other people?: Somewhat difficult Total Score: 2 Self-Efficacy 30-Day Re-eval Assessment We would like to know how confident you are in doing certain activities. Please select your confidence level for:: Select your confidence level for the following using the scale 1-10 where 1 is not at all confident and 10 is totally confident. Your score is the average of all 6 responses. Fatigue: How confident are you that you can keep the fatigue caused by your disease from interfering with the things you want to do? Select Number: 10 Physical Discomfort or Pain: How confident are you that you can keep the physical discomfort or pain of your disease from interfering with the things you want to do? Select Number: 10 Emotional Distress: How confident are you that you can keep the emotional distress caused by your disease from interfering with the things you want to do? Select Number: 9 Other Symptoms or Health Problems: How confident are you that you can keep other symptoms or health problems from interfering with the things you want to do? Select Number: 8 Different Tasks and Activities: How confident are you that you can do the different tasks and activities needed to manage your health condition so as to reduce your need to see a doctor? Select Number: 8 Medication: How confident are you that you can do things other than just taking medication to reduce how much your illness affects your everyday life? Select Number: 9 Total Score:: 9
[2018-05-20 08:25] VITALS: BP 108/64
== END 2018-06-14 23:59 ==
LOC: CR 10:15
PROVIDERS: Family Provider Family Medicine; PCP Family Medicine; Referring Provider Internal Medicine Cardiovascular Disease; Visit Provider Internal Medicine Cardiovascular Disease
DX: Z95.1 Presence of aortocoronary bypass graft (principal)
CPT/HCPCS: 93798

== ENCOUNTER 2018-07-15 10:15 | Outpatient (RCR) | payer MEDICARE, SELFPAY ==
[2018-06-15 01:32] VITALS: BP 108/64
--- NOTE | 2018-06-24 08:38 | PCM.CR.ITP ---
General Information - General Information Admitting Diagnosis: CABG - Education/Goals Barriers to Learning: None Cardiac Rehabilitation Goals: 1. Maintain the individual as the primary focus of care. 2. To improve the patient's quality of life. 3. Identification of cardiac risk factors and provide cardiac risk factor management. 4. Enhance the psychosocial status of the patient. 5. Reconditioning enough to allow the patient to resume customary activities. 6. Control symptoms of cardiac disease Scale for measuring improvement of personal goals: Enter appropriate number in Comments. 2 = Unchanged. 3 = Slightly Better. 4 = Moderate Improvement. 5 = Met my Goal Exercise - 60-Day Assessment - Visit Date of Eval: 06/24/18 Session #:: 26 - Stages of Change Stages of Change:: Action - Exercise Prescription Mode:: Treadmill, Biodyne, NuStep Frequency (x/week): 3 Duration:: 35 METs: 5.5 Target Heart Rate:: 112-120 Max HR 116 - Hypertension Resting Blood Pressure:: 108/62 Peak Exercise Blood Pressure:: 122/80 - Intervention Home Exercise/Activity Goal:: Sitting Time <3 hrs/day - Education Goals:: Warm-up, RPE JENNIFER Scale, S/S, Safe Exercise, Self-Monitoring - Exercise Program Goals Exercise Program Goals: Aerobic Activity >30 min, B/P <130/80 Nutrition - 60-Day Assessment - Program Goals Nutrition Program Goals: LDL <70. Total Cholesterol <200. HDL >45. Triglycerides <150. HgbA1C <7%. BMI <25 - Visit Date of Eval: 06/24/18 - Stages of Change Stages of Change:: Action - Lipids Has the patient seen the dietitian?: No - Weight Management Weight:: 97.069 kg - Intervention Referral to dietitian:: No Referral to Diabetic Clinic:: No Will attend diet classes:: Yes - Education Attended class for:: Signs & symptoms of hypoglycemia, Signs & symptoms of hyperglycemia, Relate diabetes to coronary artery disease, Healthy eating Tobacco - 60-Day Assessment - Program Goals Tobacco Program Goals: Complete smoking cessation. Attend education classes. Improve Knowledge Test score - Stage of Change Stages of Change:: Action - Learning Barriers Learning Barriers: Participates in education - Family Support Do you have family support?: Yes - Tobacco Use Tobacco Use: Non-smoker - Intervention Smoking Cessation Referral:: No Individual Education/Counseling:: No Education Schedule Given:: Yes - Education Attended class for:: Tobacco triggers, Coronary artery disease, Risk factors, Sexuality, Medical compliance, Cardiac A&P, Angina signs & symptoms Psychosocial - 60-Day Assess - Target Goals Target Goals: Assess presence or absence of depression. Using a valid screening tool, maximizes coping skills. Positive support system - Stages of Change Stages of Change:: Action - Psychosocial Test Tool Used:: HANDS Depression Questionnaire - Intervention PS - Interventions: Yes Attend Stress Management Classes, Yes Uses Stress Management Skills, No Referral to Mental Health, No Referral to [facility] Case Management, No Referral to Physician - Education Attended classes for:: Coping techniques, Signs & symptoms of depression, Stress management, Relaxation techniques - Assistive Devices Assistive Devices:: None Fall Risk Assessed:: Yes Patient Health Questionnaire 60-Day Re-eval Assessment 1. Little interest or pleasure in doing things: Not at all 2. Feeling down, depressed, or hopeless: Not at all 3. Trouble falling or staying asleep, or sleeping too much: Several days 4. Feeling tired or having little energy: Several days 5. Poor appetite or overeating: Not at all 6. Feeling bad about yourself -- or that you are a failure or have let yourself or your family down: Not at all 7. Trouble concentrating on things, such as reading the newspaper or watching television: Not at all 8. Moving or speaking so slowly that other people could have noticed. Or the opposite - being so fidgety or restless that you have been moving around a lot more than usual: Not at all 9. Thoughts that you would be better off , or of hurting yourself in some way: Not at all How difficult have these problems made it for you to do your work, take care of things at home, or get along with other people?: Somewhat difficult Total Score: 2 Self-Efficacy 60-Day Re-eval Assessment We would like to know how confident you are in doing certain activities. Please select your confidence level for:: Select your confidence level for the following using the scale 1-10 where 1 is not at all confident and 10 is totally confident. Your score is the average of all 6 responses. Fatigue: How confident are you that you can keep the fatigue caused by your disease from interfering with the things you want to do? Select Number: 10 Physical Discomfort or Pain: How confident are you that you can keep the physical discomfort or pain of your disease from interfering with the things you want to do? Select Number: 10 Emotional Distress: How confident are you that you can keep the emotional distress caused by your disease from interfering with the things you want to do? Select Number: 9 Other Symptoms or Health Problems: How confident are you that you can keep other symptoms or health problems from interfering with the things you want to do? Select Number: 8 Different Tasks and Activities: How confident are you that you can do the different tasks and activities needed to manage your health condition so as to reduce your need to see a doctor? Select Number: 8 Medication: How confident are you that you can do things other than just taking medication to reduce how much your illness affects your everyday life? Select Number: 9 Total Score:: 9
[2018-06-24 08:43] VITALS: BP 108/62; BP 122/80
== END 2018-07-15 23:59 ==
LOC: CR 10:15
PROVIDERS: Family Provider Family Medicine; PCP Family Medicine; Referring Provider Internal Medicine Cardiovascular Disease; Visit Provider Internal Medicine Cardiovascular Disease
DX: Z95.1 Presence of aortocoronary bypass graft (principal)
CPT/HCPCS: 93798

== ENCOUNTER 2018-07-22 10:15 | Outpatient (RCR) | payer MEDICARE, SELFPAY ==
[2018-07-16 01:04] VITALS: BP 108/62; BP 122/80
== END 2018-07-24 11:09 | disposition home or self-care (01) ==
LOC: CR 10:15
PROVIDERS: Family Provider Family Medicine; PCP Family Medicine; Referring Provider Internal Medicine Cardiovascular Disease; Visit Provider Internal Medicine Cardiovascular Disease
DX: Z95.1 Presence of aortocoronary bypass graft (principal)
CPT/HCPCS: 93798

== ENCOUNTER 2018-07-26 08:21 | Outpatient (RCR) | payer MEDICARE, SELFPAY ==
[2018-07-25 09:01] VITALS: BMI 31.4
--- NOTE | 2018-07-26 10:03 | HP.OTEVAL_ITS ---
Patient's Visit Information RAVI ADDISON is a 73 year old M, referred to Occupational Therapy by Jae Wright MD, with a diagnosis of ulnar neuropathy. Date of Evaluation: 07/26/18 Occupational Therapist: Heike Whitehead, MATTIER/Jordy, T - Subjective Subjective: PT states he had open heart sx- Feb 28 2018- since sx pt has had ulnar nerve symptoms of numbness on righ RF/LF. pt can not tell if sensation is better since sx. He states because he can not feel his LF he gets it caught in his pant pocket- or cant get his hand in his pockets. - Strength Stonecutter Apprentice Hand: right 45# left 75# Lateral Pinch: right 8# left 14# Tripod Pinch: right 10# left 12# - Sensation Thumb: right 3.61 left 3.61 Index: right 3.61 left 3.61 Middle: right 3.61 left 3.61 Ring: right 3.84 left 3.61 Little: right 4.56 left 3.61 Sensation Comments: right LF- tested with sig. sensation loss-. Right RF - tested at mod. sensation loss - Quick DASH-Disab of Arm,Shoulder& Hand Quick DASH Score: 54.5450 - Goals Goal:: Pt will demo a improvment in right RF/LF to monofilament 3.61 by d/c. pt will report ind. with placing hand in his pocket LF included without visual guide by d/c. pt will report a reduction in pins/needle sensation in 8 weeks - Rehabilitation General Assessment: Pt demo with positive s/p ulnar neuropathy following open heart sx on 2017. Pt states numbness/tingling is very bothersome and has made performing BADLS and IADLS difficult. Due to the nature of pts nerve compression and healing pt would benefit from skillled OT services 1 x a month to ed. pt on nerve regeneration, ed. and nerve gluid. and ed. pt on visual compensatory kirstie. to prevent injury to his right hand. Today pt was ed. in nerve glide, visual compensatory kirstie. and nerve regeneration- pt demo understanding- pt to return in 4 weeks for new sensory testing to trent nerve healing- pt agree to POC. Rehabilitation Potential: Fair - Anticipated Interventions Anticipated Interventions: Orthoses, Joint Protection/Energy Conservation, Fine Motor Coord/Henok, Neuro Reeducation, Sensory Stimulation, Home Program - Visit Plan Frequency: Monthly Duration: 4-6 Months TEXT: Thank you for the opportunity to evaluate your patient. For Medicare and Medicare HMO plans, please review the plan of care and approve it. It will need to be FAXED BACK to us at [phone] for Medicare purposes. Please let me know if there are questions or concerns regarding this plan of care. Physician Signature: Date:
== END 2018-07-26 19:00 | disposition home or self-care (01) ==
LOC: OT 08:21
PROVIDERS: Family Provider Family Medicine; PCP Family Medicine; Referring Provider Family Medicine; Visit Provider Family Medicine
DX: G56.21 Lesion of ulnar nerve, right upper limb (principal)
CPT/HCPCS: 97166

== ENCOUNTER 2018-08-13 10:39 | Day surgery (SDC) | payer MEDICARE, SELFPAY ==
[2018-07-25 09:01] VITALS: BMI 31.4
[2018-08-12 12:44] VITALS: BMI 31.4
[2018-08-13 10:55] LABS: Prothrombin Time Fingerstick 25.4 SEC (11.9-14.4)
--- NOTE | 2018-08-13 13:10 | PCM.OP.BLANK ---
Operative Report Date of Procedure: 08/13/18 CONSCIOUS SEDATION REPORT DATE OF SERVICE: August 13, 2018 BRIEF HISTORY OF PRESENT ILLNESS: The patient is a 73-year-old male who presents to [facility] for an elective outpatient cardioversion due to underlying atrial fibrillation. The patient does have a history of having undergone prior cardioversions. His last surface echocardiogram revealed an ejection fraction of approximately 65%. He denies any previous anesthetic complications. The patient does have known obstructive sleep apnea and is currently prescribed nocturnal CPAP therapy. PHYSICAL EXAMINATION: VITAL SIGNS: Reviewed and were acceptable. GENERAL: The patient is a male, in no apparent distress, speaking in full sentences. HEENT: Normocephalic, atraumatic. Mucous membranes are moist and pink. Good mouth opening noted. Trachea is midline. MP III CHEST: S1, S2 irregularly irregular. No murmurs, rubs or gallops were noted. LUNGS: Clear to auscultation bilaterally without appreciable wheezes, rales or rhonchi. ABDOMEN: Soft, nontender, nondistended. Positive bowel sounds. EXTREMITIES: There is no clubbing, cyanosis or edema. ASA Class: II DESCRIPTION OF PROCEDURE: After confirmation of informed consent, the patient's anesthesia plan was reviewed in detail. Propofol was chosen. Risks and benefits were reviewed and the patient agreed to proceed. At 1234, the patient was even his first bolus of propofol. In total, the patient required 60 mg of propofol to achieve an appropriate level of sedation. Following this, synchronized cardioversion was performed by Dr. Stevenson at the bedside. The patient received 2 shocks, one at 200 J and one at 300 J. The second was successful in achieving normal sinus rhythm. The patient was monitored until 1242, at which time he reached his baseline mental status and function. The patient tolerated the procedure well. COMPLICATIONS: None ESTIMATED BLOOD LOSS: None RECOMMENDATIONS: Okay to recover in usual fashion. Code Visit 9xxxx: Other Procedure See Report - [id number]
--- NOTE | 2018-08-13 13:15 | OP.PCM_ITS ---
Operative Report Date of Procedure: 08/13/18 CONSCIOUS SEDATION REPORT DATE OF SERVICE: August 13, 2018 BRIEF HISTORY OF PRESENT ILLNESS: The patient is a 73-year-old male who presents to [facility] for an elective outpatient cardioversion due to underlying atrial fibrillation. The patient does have a history of having undergone prior cardioversions. His last surface echocardiogram revealed an ejection fraction of approximately 65%. He denies any previous anesthetic complications. The patient does have known obstructive sleep apnea and is currently prescribed nocturnal CPAP therapy. PHYSICAL EXAMINATION: VITAL SIGNS: Reviewed and were acceptable. GENERAL: The patient is a male, in no apparent distress, speaking in full sentences. HEENT: Normocephalic, atraumatic. Mucous membranes are moist and pink. Good mouth opening noted. Trachea is midline. MP III CHEST: S1, S2 irregularly irregular. No murmurs, rubs or gallops were noted. LUNGS: Clear to auscultation bilaterally without appreciable wheezes, rales or rhonchi. ABDOMEN: Soft, nontender, nondistended. Positive bowel sounds. EXTREMITIES: There is no clubbing, cyanosis or edema. ASA Class: II DESCRIPTION OF PROCEDURE: After confirmation of informed consent, the patient's anesthesia plan was reviewed in detail. Propofol was chosen. Risks and benefits were reviewed and the patient agreed to proceed. At 1234, the patient was even his first bolus of propofol. In total, the patient required 60 mg of propofol to achieve an appro priate level of sedation. Following this, synchronized cardioversion was performed by Dr. Stevenson at the bedside. The patient received 2 shocks, one at 200 J and one at 300 J. The second was successful in achieving normal sinus rhythm. The patient was monitored until 1242, at which time he reached his baseline mental status and function. The patient tolerated the procedure well. COMPLICATIONS: None ESTIMATED BLOOD LOSS: None RECOMMENDATIONS: Okay to recover in usual fashion. Code Visit 9xxxx: Other Procedure See Report - [id number]
--- NOTE | 2018-08-13 13:33 | OP.PCM_ITS ---
Problem List (1) Paroxysmal atrial fibrillation Status: Acute Operative Report Date of Procedure: 08/13/18 Date: 08/13/2018 Procedure: Synchronized Biphasic DC Cardioversion Indications: Atrial fibrillation: persistent Consent: Per the Patient Anesthesia: per Dr. Gong of pulmonology and critical care medicine with Propofol 60 mg IV push total Procedure: Synchronized Biphasic DC Cardioversion: 200 J x1: Result: Atrial fibrillation Synchronized Biphasic DC cardioversion: 300 J x1: Result: Sinus rhythm Complications: no apparent complications This note was generated with [employer] software. It may contain incorrect words, spelling, and punctuation that were not noted in checking the note before signing.
== END 2018-08-13 13:45 | disposition home or self-care (01) ==
PROVIDERS: Family Provider Family Medicine; PCP Family Medicine; Referring Provider Internal Medicine Cardiovascular Disease; Visit Provider Internal Medicine Cardiovascular Disease
DX: I48.1 Persistent atrial fibrillation (principal); I25.10 Atherosclerotic heart disease of native coronary artery without angina pectoris; I10 Essential (primary) hypertension; E78.00 Pure hypercholesterolemia, unspecified; J84.10 Pulmonary fibrosis, unspecified; E05.90 Thyrotoxicosis, unspecified without thyrotoxic crisis or storm; R01.1 Cardiac murmur, unspecified; Z95.1 Presence of aortocoronary bypass graft; Z79.82 Long term (current) use of aspirin; Z79.01 Long term (current) use of anticoagulants; Z79.899 Other long term (current) drug therapy; Z87.891 Personal history of nicotine dependence
CPT/HCPCS: 36416; 85610; 92960; 93005; J7040

== ENCOUNTER → 2019-06-20 08:09 | Outpatient (CLI) | payer MEDICARE, SELFPAY ==
[2019-01-22 09:17] VITALS: BMI 32.0
[2019-05-09 08:33] VITALS: BMI 32.7
--- NOTE | 2019-06-20 14:11 | NEURO ---
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 Patient denies any new neck injury but has some neck pain. Patient currently does not have significant neck pain or radiating pain. Patient does not have history of diabetes. 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 He is right-hand dominant. Physical Exam: Right hand fourth and fifth finger sensation to light touch is slightly decreased as well as in the right thumb, index finger and middle finger area. No significant muscle weakness or atrophy noted. Tinel's sign negative on right wrist area. Findings: 1. There is prolongation of distal latency of right median sensory nerve response. 2. There is prolongation of distal latency of right ulnar sensory nerve response. 3. Normal right median and ulnar motor nerve conduction studies. 4. Normal needle examination of the right upper extremity. Impression: 1. Findings are consistent with mild median mononeuropathy at right wrist due to carpal tunnel syndrome. 2. Findings are are also consistent with a right ulnar sensory neuropathy. Recommendation: 1. Patient recommended to wear right hand and elbow splints as much as possible. 2. Patient recommended to avoid repetitive right hand use as well as heavy lifting or sleeping or leaning on right elbow. 3. Patient may need surgical release of carpal tunnel syndrome in future if symptoms continues.
== END ==
PROVIDERS: Family Provider Family Medicine; PCP Family Medicine; Referring Provider Family Medicine; Visit Provider Family Medicine
DX: G56.21 Lesion of ulnar nerve, right upper limb (principal)
CPT/HCPCS: 95886; 95908

== ENCOUNTER → 2019-11-11 08:55 | Outpatient (CLI) | payer MEDICARE, SELFPAY ==
[2019-11-07 10:00] VITALS: BMI 33.0
== END ==
PROVIDERS: PCP Family Medicine; Referring Provider Internal Medicine Cardiovascular Disease; Visit Provider Internal Medicine Cardiovascular Disease
DX: I25.10 Atherosclerotic heart disease of native coronary artery without angina pectoris (principal); E78.00 Pure hypercholesterolemia, unspecified; I10 Essential (primary) hypertension; I35.0 Nonrheumatic aortic (valve) stenosis; I48.0 Paroxysmal atrial fibrillation; Z79.01 Long term (current) use of anticoagulants; Z95.1 Presence of aortocoronary bypass graft; Z95.5 Presence of coronary angioplasty implant and graft
CPT/HCPCS: 93225; 93226

== ENCOUNTER → 2019-12-16 10:41 | Outpatient (CLI) | payer MEDICARE, SELFPAY ==
[2019-11-24 14:41] VITALS: BMI 33.4
--- NOTE | 2019-12-16 10:42 | ECHOCS_ITS ---
Reason For Study: AVR Procedure This was a 2D Doppler, Color Flow transthoracic echocardiogram. The study was technically difficult. Contrast injection was performed. Exam performed in department. Left Ventricle Normal LV size. Left ventricular systolic function is normal. The estimated ejection fraction is 60 %. Post operative septal motion. Unable to assess diastolic dysfunction. No regional wall motion abnormalities noted. Right Ventricle Normal RV size. Normal systolic function. Atria The left atrium is severely enlarged. The right atrium is mildly enlarged. No doppler evidence for ASD. Mitral Valve There is mild mitral annular calcification. Extension of the mitral annular calcification onto the base of the posterior mitral valve leaflet. Mild-Moderate (1-2+) mitral valve insufficiency. Tricuspid Valve Normal tricuspid valve. Mild tricuspid valve insufficiency. Right ventricular systolic pressure estimated to be 41 mmHg. Aortic Valve Trisinus/trileaflet aortic valve. Moderate focal aortic valve calcification. Mild aortic stenosis. Pulmonic Valve The pulmonic valve is not well visualized. Trivial pulmonic valve insufficiency. Great Vessels Normal sized aortic root. Pericardium/Pleural No pericardial effusion. Medication 22 gauge I.V. with prn adaptor inserted into right arm. Diluted definity 2.0ml given slow IV push to enhance endocardial definition. MMode/2D Measurements & Calculations LVIDd: 5.0 cm IVSd: 0.99 cm LVOT diam: 2.0 cm LVIDs: 3.4 cm LVPWd: 1.1 cm FS: 31.6 % LVOT area: 3.0 cm2 Ao root diam: 3.3 cm LAV(MOD-sp2): 88.9 ml LA dimension(2D): 5.1 cm Time Measurements MV dec time: 0.13 sec Doppler Measurements & Calculations MV E max maulik: 127.9 cm/sec Ao V2 max: 228.6 cm/sec LV V1 max: 104.8 cm/sec Ao max P.9 mmHg LV V1 max P.4 mmHg Ao V2 mean: 168.7 cm/sec LV V1 mean P.5 mmHg Ao mean P.3 mmHg LV V1 mean: 74.4 cm/sec Ao V2 VTI: 45.3 cm LV V1 VTI: 20.4 cm BASHIR(I,D): 1.4 cm2 BASHIR(V,D): 1.4 cm2 SV(LVOT): 62.1 ml TR max maulik: 289.0 cm/sec TR max P.4 mmHg Interpretation Summary The study was technically difficult. Contrast injection was performed. Left ventricular systolic function is normal. The estimated ejection fraction is 60 %. Post operative septal motion. The left atrium is severely enlarged. The right atrium is mildly enlarged. There is mild mitral annular calcification. Extension of the mitral annular calcification onto the base of the posterior mitral valve leaflet. Mild-Moderate (1-2+) mitral valve insufficiency. Mild tricuspid valve insufficiency. Mild aortic stenosis. Trivial pulmonic valve insufficiency. Right ventricular systolic pressure estimated to be 41 mmHg. Unable to assess diastolic dysfunction. Ordering Physician: Jason Stevenson Referring Physician: Jason Stevenson Performed By: Brigida Guzman, FEDERICOCS, RVT
== END ==
PROVIDERS: PCP Family Medicine; Referring Provider Internal Medicine Cardiovascular Disease; Visit Provider Internal Medicine Cardiovascular Disease
DX: I25.10 Atherosclerotic heart disease of native coronary artery without angina pectoris (principal)
CPT/HCPCS: 93306; Q9957; A4216; C8929

== ENCOUNTER 2020-01-23 10:30 | Outpatient (RCR) | payer MEDICARE, SELFPAY ==
[2019-11-24 14:41] VITALS: BMI 33.4
[2020-01-23 11:21] LABS: International Normalized Ratio 2.6; Prothrombin Time (Protime)PT. 27.2 SECONDS (11.7-14.9)
== END 2020-01-23 18:00 | disposition home or self-care (01) ==
LOC: LAB 10:30
PROVIDERS: PCP Family Medicine; Referring Provider Internal Medicine Cardiovascular Disease; Visit Provider Internal Medicine Cardiovascular Disease
DX: I48.0 Paroxysmal atrial fibrillation (principal); Z79.01 Long term (current) use of anticoagulants
CPT/HCPCS: 36415; 85610

== ENCOUNTER → 2020-09-21 09:43 | Outpatient (CLI) | payer MEDICARE, SELFPAY ==
[2020-06-14 13:10] VITALS: BMI 34.3
--- NOTE | 2020-09-21 10:05 | RAD_ITS ---
CLINICAL HISTORY: Male, 75 years old. Dyspnea PROCEDURE: SNIFF TEST FLUOROSCOPY TIME (if supplied): (0:43) minutes/seconds. 45 images. TECHNIQUE: In the presence of speech pathologist utilizing thin and thick liquid barium as well as pudding mixed with barium and cookies coated with barium. Multiple swallows were performed under fluoroscopic monitoring. COMPARISON: None. FINDINGS: Symmetric upward and downward motion of the right and left hemidiaphragms noted during inspiration and expiration and during cough. There is no evidence of paradoxical movement to suggest phrenic nerve paralysis. RAD/Chest Sniff Test Fluoro Only IMPRESSION: There is no evidence of phrenic nerve paralysis. Electronically Signed: Carol Canela MD at 10:56 EST Tel , Service support ,
== END ==
PROVIDERS: PCP Family Medicine; Referring Provider Internal Medicine Pulmonary Disease; Visit Provider Internal Medicine Pulmonary Disease
DX: R06.00 Dyspnea, unspecified (principal)
CPT/HCPCS: 76000

== ENCOUNTER 2021-08-01 11:20 | Outpatient (CLI) | payer MEDICARE, SELFPAY ==
[2021-08-01 12:23] LABS: Erythrocyte Sedimentation Rate 6 mm/hr (0-20)
[2021-08-01 12:53] LABS: CRP 4.67 mg/L (0.0-3.0)
== END 2021-08-01 23:59 | disposition short-term general hospital (02) ==
LOC: MTLAB 11:21
PROVIDERS: PCP Family Medicine; Referring Provider Internal Medicine Pulmonary Disease; Visit Provider Internal Medicine Pulmonary Disease
DX: J84.112 Idiopathic pulmonary fibrosis (principal)
CPT/HCPCS: 36415; 85652; 86140

== ENCOUNTER 2021-09-06 07:46 | Outpatient (CLI) | payer MEDICARE, SELFPAY ==
--- NOTE | 2021-09-06 07:55 | CT_ITS ---
STUDY: CT BRAIN WITHOUT CONTRAST REASON FOR EXAM: Male, 76 years old. CHI w/o LOC on 07/18. Mild dizziness and balance issues since. P RADIATION DOSAGE (If Supplied By Facility): CTDIvol = ( 44.99 ) mGy, DLP = ( 897.35 ) mGycm TECHNIQUE: Transaxial CT imaging of the brain was performed without administration of intravenous contrast material. Individualized dose optimization techniques were used for this CT. COMPARISON: No relevant priors. FINDINGS: Normal soft tissue structures. Normal calvarium. There is mild cerebral atrophy with widening of the extra-axial spaces and ventricular dilatation. There are areas of decreased attenuation within the white matter tracts of the supratentorial brain, consistent with microvascular disease changes. There are small punctate calcifications of the basal ganglia which are seen in the aging brain as a normal variant. Tiny old lacunae in the insular cortex of the left temporal lobe. Normal brainstem. Normal cerebellum. There is no intracranial hemorrhage. There are no findings of an acute ischemic infarction. Atherosclerotic calcification of the vertebral arteries as well as the cavernous portions of the internal carotid arteries bilaterally. Mild degree of mucosal thickening along the posterior aspect of the right ethmoid sinus. CT/Brain/Head without Contrast IMPRESSION: Chronic involutional changes of the brain. Electronically Signed: Esvin Sosa MD at 8:49 EST ,
== END 2021-09-06 23:59 | disposition home or self-care (01) ==
PROVIDERS: PCP Family Medicine; Referring Provider Family Medicine; Visit Provider Family Medicine
DX: S06.0X9A Concussion with loss of consciousness of unspecified duration, initial encounter (principal)
CPT/HCPCS: 70450

== ENCOUNTER → 2021-12-20 | Outpatient (CLI) | payer MEDICARE, SELFPAY | END | disposition home or self-care (01) | LOC: LAB 14:36 | PROVIDERS: PCP Family Medicine; Referring Provider Urology; Visit Provider Urology | DX: Z12.5 Encounter for screening for malignant neoplasm of prostate (principal) | CPT/HCPCS: 36415; 84153; G0103 ==

== ENCOUNTER → 2021-12-22 | Outpatient (CLI) | payer MEDICARE, SELFPAY ==
--- NOTE | 2021-12-22 13:47 | ECHOD_ITS ---
Reason For Study: AORTIC STENOSIS Procedure This was a 2D Doppler, Color Flow transthoracic echocardiogram. The study was technically difficult. Contrast injection was performed. Exam performed in department. Left Ventricle Normal LV size. Left ventricular systolic function is normal. The estimated ejection fraction is 65 %. Diastolic function is indeterminate. No regional wall motion abnormalities noted. Right Ventricle Normal RV size. Normal systolic function. Atria The left atrium is mildly enlarged. Normal right atrium. No doppler evidence for ASD. Mitral Valve There is no mitral annular calcification. Normal mitral valve. Trivial mitral valve insufficiency. Tricuspid Valve Normal tricuspid valve. Trivial tricuspid valve insufficiency. Unable to estimate RV systolic pressure/pulmonary artery pressure due to technically difficult study. Aortic Valve Trisinus/trileaflet aortic valve. Mild diffuse aortic valve thickening. Mild diffuse aortic valve calcification. Mild aortic stenosis. Pulmonic Valve The pulmonic valve is not well visualized. Great Vessels The aortic root is not well visualized. Pericardium/Pleural No pericardial effusion. Medication 22 gauge I.V. with prn adaptor inserted into right arm. Diluted definity 3ml given slow IV push to enhance endocardial definition. MMode/2D Measurements & Calculations LVIDd: 5.1 cm IVSd: 1.3 cm LVOT diam: 2.0 cm LVIDs: 3.5 cm LVPWd: 1.2 cm FS: 30.3 % LVOT area: 3.2 cm2 LAV(MOD-bp): 70.8 ml LA A4 area: 25.5 cm2 RA A4 area: 18.0 cm2 LAV(MOD-bp) Indexed: 32.0 ml/m2 LAV(MOD-sp2): 56.5 ml LAV(MOD-sp4): 77.7 ml Doppler Measurements & Calculations MV E max omar: 106.2 cm/sec Lat Peak E' Omar: 10.1 cm/sec Med Peak E' Omar: 6.6 cm/sec MV A max omar: 48.0 cm/sec E/E' lat: 10.5 E/E' med: 16.1 MV E/A: 2.2 Ao V2 max: 282.2 cm/sec LV V1 max: 139.7 cm/sec SV(LVOT): 96.1 ml Ao max P.9 mmHg LV V1 max P.8 mmHg Ao V2 mean: 197.5 cm/sec LV V1 mean P.9 mmHg Ao mean P.5 mmHg LV V1 mean: 91.2 cm/sec Ao V2 VTI: 62.1 cm LV V1 VTI: 29.8 cm BASHIR(I,D): 1.5 cm2 BASHIR(V,D): 1.6 cm2 PA V2 max: 128.1 cm/sec ECHO/Echo Complete W/ Contrast Interpretation Summary The study was technically difficult. Contrast injection was performed. Left ventricular systolic function is normal. The estimated ejection fraction is 65 %. The left atrium is mildly enlarged. Trivial mitral valve insufficiency. Trivial tricuspid valve insufficiency. Mild aortic stenosis. Unable to estimate RV systolic pressure/pulmonary artery pressure due to techni sammy difficult study. Diastolic function is indeterminate. Ordering Physician: Jason Stevenson Referring Physician: Jae Wright MD Performed By: Maricel Page RCS
== END | disposition home or self-care (01) ==
LOC: CVS 13:46
PROVIDERS: PCP Family Medicine; Visit Provider Internal Medicine Cardiovascular Disease
DX: I25.10 Atherosclerotic heart disease of native coronary artery without angina pectoris (principal)
CPT/HCPCS: 93306; Q9957; A4216; C8929

== ENCOUNTER → 2022-02-14 | Outpatient (CLI) | payer MEDICARE, SELFPAY ==
--- NOTE | 2022-02-14 12:15 | CT_ITS ---
INDICATION: Pulmonary Fibrosis, Lung Nodules -- High Resolution Scan EXAMINATION: CT CHEST WITHOUT CONTRAST - CT Chest High Resolution WO Contrast Injection TECHNIQUE: Helically acquired images were obtained of the chest. A radiation dose optimization technique was used for this scan. IV Contrast dosage and agent: None. COMPARISON: None. FINDINGS: LUNGS, PLEURA AND LARGE AIRWAYS: Prominence of the interstitial lung markings visualized predominantly along the pleural reflections. No evidence of air trapping is visualized. Thickening of the bronchioles is visualized bilaterally, no evidence of bronchiectasis is seen.. No masses, consolidation, or edema. No pleural effusion or parenchymal lung mass. No pneumothorax. No evidence of bullous lesions is seen. THYROID: Nodular lesions visualized in the left lobe of the thyroid gland, surgical clips visualized superimposed over the isthmus, the right lobe of the thyroid gland is not visualized would recommend clinical correlation for surgical excision. HEART AND PERICARDIUM: Heart size is normal. No pericardial effusion. Atherosclerotic calcifications visualized in the coronary vessels. VESSELS: Thoracic aorta is not dilated. MEDIASTINUM AND FILEMON: No mediastinal or hilar adenopathy. Esophagus is unremarkable. Moderate-sized hiatus hernia is visualized, type III. UPPER ABDOMEN: No acute pathology. BONES: No suspicious lytic or blastic abnormality. Degenerative changes visualized in the upper thoracic spine. CT/Chest without Contrast IMPRESSION: Moderate-sized type III hiatus hernia seen. Chronic interstitial changes visualized in the lung tafoya bilaterally most prominent in the lower lung tafoya. Electronically Signed: Cameron Hernandez MD at 13:03 EDT ,
== END | disposition home or self-care (01) ==
LOC: CT 12:14
PROVIDERS: PCP Family Medicine; Referring Provider Internal Medicine Critical Care Medicine; Visit Provider Internal Medicine Critical Care Medicine
DX: J84.10 Pulmonary fibrosis, unspecified (principal)
CPT/HCPCS: 71250

== ENCOUNTER → 2022-02-28 | Outpatient (CLI) | payer MEDICARE, SELFPAY | END | disposition home or self-care (01) | PROVIDERS: PCP Family Medicine; Visit Provider Family Medicine | DX: U07.1 COVID-19 (principal) | CPT/HCPCS: 87635; U0003; U0005 ==

== ENCOUNTER → 2022-04-26 | Outpatient (CLI) | payer MEDICARE, SELFPAY | END | disposition home or self-care (01) | LOC: SL 20:08 | PROVIDERS: PCP Family Medicine; Referring Provider Nurse Practitioner Acute Care; Visit Provider Nurse Practitioner Acute Care | DX: G47.33 Obstructive sleep apnea (adult) (pediatric) (principal) | CPT/HCPCS: 95810 ==

== ENCOUNTER 2022-06-02 11:20 | Outpatient (CLI) | payer MEDICARE, SELFPAY ==
[2022-06-02 12:45] LABS: Albumin, Serum 3.6 g/dL (3.2-5.0); BUN 32 mg/dL (7-18); BUN/Creat Ratio 19.2 RATIO (10-20); Calcium,Total 9.5 mg/dL (8.5-10.1); Chloride 106 mmol/L (98-107); Creatinine, Serum 1.67 mg/dL (0.70-1.30); EST Glomerular Filtration Rate 43 mL/min (>60); Est Glom Filt Rate - Afr Amer 52 mL/min (>60); Glucose 111 mg/dL (74-106); Phosphorus 2.4 mg/dL (2.5-4.9); Potassium 4.5 mmol/L (3.5-5.1); Sodium Level 139 mmol/L (136-145)
== END 2022-06-02 23:59 | disposition home or self-care (01) ==
LOC: MTLAB 11:21
PROVIDERS: PCP Family Medicine; Referring Provider Family Medicine; Visit Provider Family Medicine
DX: N20.0 Calculus of kidney (principal)
CPT/HCPCS: 36415; 80069

== ENCOUNTER → 2022-06-30 | Outpatient (CLI) | payer MEDICARE, SELFPAY ==
--- NOTE | 2022-06-30 12:39 | CDU_ITS ---
Reason For Study: Bilateral carotid artery stenosis Rt. Velocities/BP Lt. Velocities/BP Prox CCA 109.7/18.8 cm/sec. Prox CCA 117.4/22.5 cm/sec. Mid CCA 132.4/20.4 cm/sec. Mid CCA 97.4/20.6 cm/sec. Dist CCA 97.2/16 cm/sec. Dist CCA 99.2/24.3 cm/sec. Prox ICA 119.3/20.6 cm/sec. Prox ICA 164.1/39.7 cm/sec. Mid ICA 90/17 cm/sec. Mid ICA 148.5/26.7 cm/sec. Dist ICA 79.7/17.2 cm/sec. Dist ICA 135.6/18.9 cm/sec. Rt. ICA/CCA = 1.09. Lt. ICA/CCA = 1.65. Prox ECA 141.2/7.2 cm/sec. Prox ECA 220.8/26.8 cm/sec. Rt. Vert. 112/24.3 cm/sec. Lt. Vert. 57.5/5.8 cm/sec. Right Extracranial There is heterogeneous, irregular atherosclerotic plaque noted in the right common carotid artery. There is heterogeneous, irregular atherosclerotic plaque noted in the right internal carotid artery. The atherosclerotic plaque causes acoustic shadowing. There is heterogeneous, irregular atherosclerotic plaque noted in the right external carotid artery. Antegrade flow is noted in the right vertebral artery. Left Extracranial There is heterogeneous, irregular atherosclerotic plaque noted in the left common carotid artery. There is heterogeneous, irregular atherosclerotic plaque noted in the left internal carotid artery. There is heterogeneous, irregular atherosclerotic plaque noted in the left external carotid artery. Antegrade flow is noted in the left vertebral artery. Procedure Carotid Duplex [id number]. This is a Carotid Duplex examination using B-mode, color flow and specral Doppler. Exam performed in department. VL/Carotid Duplex Ultrasound Interpretation Summary Irregular calcific plaque with shadowing at the proximal right internal carotid artery with less than 50% stenosis Less than 50% stenosis right external carotid artery Elevated velocity right vertebral with greater than 50% stenosis Irregular calcific plaque with shadowing at the proximal left internal carotid artery of 50 to 69% stenosis Greater than 50% stenosis left external carotid artery Patent and antegrade left vertebral Ordering Physician: Jason Stevenson Referring Physician: Jae Wright MD Performed By: Josette Herman RVT
== END | disposition home or self-care (01) ==
LOC: CVS 12:39
PROVIDERS: PCP Family Medicine; Referring Provider Internal Medicine Cardiovascular Disease; Visit Provider Internal Medicine Cardiovascular Disease
DX: R09.89 Other specified symptoms and signs involving the circulatory and respiratory systems (principal); I65.23 Occlusion and stenosis of bilateral carotid arteries
CPT/HCPCS: 93880

== ENCOUNTER → 2022-08-08 | Outpatient (CLI) | payer MEDICARE, SELFPAY ==
[2022-08-08 13:00] LABS: Albumin, Serum 3.7 g/dL (3.2-5.0); BUN 34 mg/dL (7-18); BUN/Creat Ratio 21.7 RATIO (10-20); Calcium,Total 9.5 mg/dL (8.5-10.1); Chloride 105 mmol/L (98-107); Creatinine, Serum 1.57 mg/dL (0.70-1.30); EST Glomerular Filtration Rate 46 mL/min (>60); Est Glom Filt Rate - Afr Amer 56 mL/min (>60); Glucose 102 mg/dL (74-106); Potassium 4.9 mmol/L (3.5-5.1); Sodium Level 140 mmol/L (136-145)
== END | disposition home or self-care (01) ==
PROVIDERS: PCP Family Medicine; Referring Provider Family Medicine; Visit Provider Family Medicine
DX: R79.89 Other specified abnormal findings of blood chemistry (principal); N20.0 Calculus of kidney
CPT/HCPCS: 36415; 80069

== ENCOUNTER 2022-12-18 11:27 | Outpatient (RCR) | payer MEDICARE, SELFPAY ==
[2022-12-18 15:42] LABS: International Normalized Ratio 2.7; Prothrombin Time (Protime)PT. 28.8 SECONDS (11.7-14.9)
== END 2022-12-18 18:00 | disposition home or self-care (01) ==
LOC: MTLAB 11:27
PROVIDERS: PCP Family Medicine; Referring Provider Nurse Practitioner Family; Visit Provider Nurse Practitioner Family
DX: I48.0 Paroxysmal atrial fibrillation (principal); Z79.01 Long term (current) use of anticoagulants
CPT/HCPCS: 36415; 85610

== ENCOUNTER 2022-12-21 17:00 | Outpatient (RCR) | payer MEDICARE, SELFPAY ==
--- NOTE | 2022-11-17 15:32 | HP.PTEVAL_ITS ---
Patient's Visit Information RAVI ADDISON Jr. is a 77 year old M referred to Physical Therapy by Dr. Jae Wright MD with a diagnosis of Back pain. Date of Evaluation: 11/17/22 Physical Therapist: Ricci Green, PT, ATC - Visit Plan Frequency: 2-3x /Week Duration: 4-6 Weeks Plan: Postural edu, SKTC/DKTC, core stab ex's, and HEP - Subjective Pt reports he started to have LBP approximately 6 weeks ago. Pt notes he has had LBP in the past. Pt reports this episode had an insidious onset. Pt reports he was given a steroid and muscle relaxer which has helped to degrease his pain. Pt has not had any diagnostic tests at this time. Pt denies any tingling or numbness in his legs, although his LE's do feel weak. Pt notes he has sleep difficulty secondary to pain without taking his pain pills. Pt reports standing and walking for a long period of time increases his pain. Pt notes sitting and resting tends to decrease his pain. 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 0/10 pain at rest, 9/10 pain at worst - Pain LBP Pain Intensity (Out of 10): 0 Pain Intensity Range: 9 - Objective Neuro: B LE sensation is WNL to light touch. B patellar reflex= 1/3. MMT: B LE's are grossly 5/5 throughout. Posture. Pt sits and stands with increased L/S lordosis. ROM: Pt is severely limited with L/S ext. Flexion is minimally limited. B SB is WFL. Repeated movements: RFIL (SKTC/DKTC) decreased LBP - Balance/Special Test Scores Oswestry Low Back Score: 16 - Goals Goal 1:: Decrease LBP x 50% to aid with sleep Goal Time Frame: 4-6 Weeks Goal 2:: Increase L/S ROM to WFL to aid with IADL's Goal Time Frame: 4-6 Weeks Goal 3:: I with HEP Goal Time Frame: 4-6 Weeks - Rehabilitation Potential Physical Therapy Diagnosis: Pt has limited L/S ROM and difficulty with prolonged standing secondary to degenerative changes in the L/S Rehabilitation Potential: Good - Anticipated Interventions Patient/Client Instruction: Educate patient on: Condition, Plan of Care For the Purpose of:: To decrease pain, To increase ROM, To improve muscle performance and motor function Therapeutic Exercise to Include: Strength training, Endurance training, Body mechanics, Postural training, Dynamic Lumbar Stabilization For the Purpose of:: To decrease pain, To improve muscle performance and motor function Thank you for the opportunity to evaluate your patient. For Medicare and Medicare HMO plans, please review the plan of care and approve it. It will need to be FAXED BACK to us at [phone] for Medicare purposes. For Medicare only, by signing this I certify the plan of care. Please let me know if there are questions or concerns regarding this plan of care. Physician Signature: Date:
--- NOTE | 2023-03-28 13:18 | HP.PT.NRP ---
Patient Information Patient Information: RAVI ADDISON Jr. was seen in my office for initial evaluation on 11/17/22. The following Plan of Care was established for this patient: POC Established Initial Frequency: 2-3x /Week Initial Duration: 4-6 Weeks Anticipated Interventions Patient/Client Instruction: Educate patient on: Condition and Plan of Care For the Purpose of:: To decrease pain, To increase ROM and To improve muscle performance and motor function Therapeutic Exercise to Include: Strength training, Endurance training, Body mechanics, Postural training and Dynamic Lumbar Stabilization For the Purpose of:: To decrease pain and To improve muscle performance and motor function Last Seen Last Seen: This patient was last seen in our office . Pertinent comments regarding their Physical therapy will appear below: Pt was treated for 7 PT visits for LBP through the date of 12/21/22. Pt has not returned through this date and is discontinued at this time. At this point I will be discontinuing this patient from physical therapy. I would be happy to see this patient again in the future if found appropriate by the physician. Thank you! Ricci Green, PT, ATC Balance/Gait/Functional tests Balance/Special Test Scores Oswestry Low Back Score: 16
== END 2022-12-21 19:00 | disposition home or self-care (01) ==
LOC: PT 17:00
PROVIDERS: PCP Family Medicine; Referring Provider Family Medicine; Visit Provider Family Medicine
DX: M54.50 Low back pain, unspecified (principal); M54.6 Pain in thoracic spine; M25.511 Pain in right shoulder
CPT/HCPCS: 97110; 97161; 97530

== ENCOUNTER → 2022-12-26 | Outpatient (CLI) | payer MEDICARE, SELFPAY ==
--- NOTE | 2022-12-26 11:10 | RAD_ITS ---
INDICATION: Chronic back pain EXAMINATION/TECHNIQUE: X-RAY - XR Spine Lumbar Comp W/ Bending Min 6 Views: 7 image lumbar spine series with flexion and extension COMPARISON: None. FINDINGS: VERTEBRAE: No fracture or acute compression deformity. Preserved lumbar lordosis. Moderate to severe facet arthropathy L3-4 L4-5 and L5-S1. Degenerative grade 1 retrolisthesis L2 on L3 and degenerative grade 1 anterolisthesis L4 on L5 and L5 on S1, which does not change significantly with flexion or extension DISCS: Diffuse disc height loss most prominent at L3-4.. INCLUDED ABDOMEN: Included bowel gas pattern is non-obstructive. Diffuse peripheral atherosclerosis. RAD/L/S Spine w Bend Min 6 Vw IMPRESSION: No fracture. Lower lumbar moderate to severe facet arthropathy with degenerative grade 1 listhesis which does not changed with flexion or extension. Electronically Signed: Yusef Berman MD at 4:25 EDT ,
== END | disposition home or self-care (01) ==
LOC: MTRAD 11:09
PROVIDERS: PCP Family Medicine; Referring Provider Family Medicine; Visit Provider Family Medicine
DX: M54.9 Dorsalgia, unspecified (principal)
CPT/HCPCS: 72114

== ENCOUNTER → 2022-12-27 | Outpatient (CLI) | payer MEDICARE, SELFPAY ==
[2022-12-27 11:04] LABS: Vitamin D,25 Hydroxy 101.5 ng/mL
[2022-12-27 11:13] LABS: ALB/GLOB Ratio 0.9 RATIO (0.9-2.4); AST(SGOT) 21 U/L (15-37); Alanine Aminotransfer ALT/SGPT 21 U/L (16-61); Albumin, Serum 3.4 g/dL (3.2-5.0); Alkaline Phosphatase 80 U/L (45-117); Anion Gap 5 (5-15); BUN 30 mg/dL (7-18); BUN/Creat Ratio 18.8 RATIO (10-20); Calcium,Total 9.5 mg/dL (8.5-10.1); Chloride 108 mmol/L (98-107); EST Glomerular Filtration Rate 45 mL/min (>60); Est Glom Filt Rate - Afr Amer 54 mL/min (>60); Globulin 3.7 g/dL (2.2-4.2); Glucose 124 mg/dL (74-106); Potassium 4.4 mmol/L (3.5-5.1); Protein, Total 7.1 g/dL (6.4-8.2); Sodium Level 140 mmol/L (136-145); Thyroid Stim Hormone (TSH) 0.62 uIU/mL (0.358-3.74)
== END | disposition home or self-care (01) ==
LOC: MTLAB 07:44
PROVIDERS: PCP Family Medicine; Referring Provider Internal Medicine Endocrinology, Diabetes & Metabolism; Visit Provider Internal Medicine Endocrinology, Diabetes & Metabolism
DX: E04.2 Nontoxic multinodular goiter (principal); E55.9 Vitamin D deficiency, unspecified
CPT/HCPCS: 36415; 80053; 82306; 84443

== ENCOUNTER → 2022-12-28 | Outpatient (CLI) | payer MEDICARE, SELFPAY ==
--- NOTE | 2022-12-28 14:20 | CT_ITS ---
EXAM: CT ABDOMEN AND PELVIS WITHOUT INTRAVENOUS CONTRAST CLINICAL INDICATION: KIDNEY STONE TECHNIQUE: Helically acquired images were obtained of the abdomen and pelvis without intravenous contrast. This CT exam was performed using one or more of the following dose reduction techniques: automated exposure control, adjustment of the mA and/or kV according to patient size, and/or use of iterative reconstruction technique. RADIATION DOSE: CTDIvol = 20.95 mGy, DLP = 1152.52 mGy-cm COMPARISON: CT chest without contrast 02/14/2022. No prior CT abdomen and pelvis for comparison. FINDINGS: LOWER THORAX: Minimal subpleural reticulation in the right peripheral lung base and subpleural atelectasis in the left posterior lung base. Mild cardiomegaly. Right coronary artery calcification is visible. Normal pericardium. ABDOMEN: LIVER: Unremarkable. Homogeneous. GALLBLADDER AND BILE DUCTS: Unremarkable. No calcified gallstones. No gallbladder distention or wall edema. No intra- or extrahepatic biliary ductal dilation. PANCREAS: Unremarkable. No focal cystic mass. SPLEEN: Unremarkable. Normal size without focal cystic or solid mass. ADRENALS: Unremarkable. No nodules. KIDNEYS AND URETERS: 3 cm right posterior renal parenchymal cyst with CT number of 10.11 Hounsfield units. 6 mm nonobstructing stone at the junction of the middle third and upper third of the right renal infundibulum. 2 mm nonobstructing stone in the posterior renal infundibulum of the left kidney at the junction of the middle third and upper third of the right kidney. 3 nonobstructing calculi in the right lower renal pole. 2 of the stones are 4 mm size and the smaller stone is 2 mm in size. No right hydronephrosis. 5 mm nonobstructing stone in the left lower renal pole. No left hydronephrosis. STOMACH AND BOWEL: Unremarkable. No stomach or bowel distention. No focal inflammatory change. PELVIS: APPENDIX: Normal. BLADDER: Unremarkable. 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 ABDOMEN and PELVIS: INTRAPERITONEAL SPACE: Unremarkable. No ascites or other fluid collection. No free air. BONES/JOINTS: Grade 1 degenerative anterolisthesis of L4 on L5 with moderate L4-L5 disc space height narrowing. Mild degenerative anterolisthesis of L5 on S1 with pronounced L5-S1 disc space height narrowing containing degenerative vacuum phenomenon. Mild degenerative retrolisthesis of L2 on L3 and minimal degenerative retrolisthesis of L3 on L4. Pronounced stenosis of the right L4-L5 and right L5-S1 intervertebral neural foramen. Moderate stenosis of the left L3-L4, left L4-L5 and left L5-S1 intervertebral neural foramen. Moderate stenosis of the right L3-L4 intervertebral neural foramen. No suspicious lytic or blastic abnormality. 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 VASCULATURE: Calcified plaques along the infrarenal abdominal aorta and iliac arteries. Abdominal aorta is non-dilated. LYMPH NODES: Unremarkable. No enlarged lymph nodes. CT/Abdomen/Pelvis without Cont IMPRESSION: 1. No acute findings in the abdomen or pelvis. 2. 5 nonobstructing stones in the right kidney. The dimensions are given above. No right hydronephrosis. 3. 5 mm nonobstructing stone in the left kidney but no left hydronephrosis. 4. 3 mm right posterior renal parenchymal cyst with CT number of 10.11 Hounsfield units. ACR White Paper guidelines (Herts, et al. JACR 2018; 15(2):264-273) suggest no follow-up is necessary. 5. 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 Electronically Signed: Vinnie Cao MD at 14:53 EDT ,
[2022-12-28 15:08] LABS: PSA,Total - Annual Screen 1.58 ng/mL (0.00-4.00)
== END | disposition home or self-care (01) ==
PROVIDERS: PCP Family Medicine; Referring Provider Urology; Visit Provider Urology
DX: N20.0 Calculus of kidney (principal); Z12.5 Encounter for screening for malignant neoplasm of prostate
CPT/HCPCS: 36415; 74176; 82360; 84153; G0103

== ENCOUNTER → 2023-01-08 | Outpatient (CLI) | payer MEDICARE, SELFPAY ==
[2023-01-08 10:37] LABS: AST(SGOT) 18 U/L (15-37); Alanine Aminotransfer ALT/SGPT 20 U/L (16-61); Albumin, Serum 3.4 g/dL (3.2-5.0); Alkaline Phosphatase 76 U/L (45-117); Bilirubin, Direct 0.19 mg/dL (0.00-0.30); Cholesterol 144 mg/dL (200); Globulin 3.6 g/dL (2.2-4.2); High Density Lipoprotein 45 mg/dL; Triglycerides 133 mg/dL; Very Low Density Lipoprotein 27 mg/dL (5-40)
== END | disposition home or self-care (01) ==
LOC: MTLAB 09:02
PROVIDERS: PCP Family Medicine; Referring Provider Internal Medicine Cardiovascular Disease; Visit Provider Internal Medicine Cardiovascular Disease
DX: E78.5 Hyperlipidemia, unspecified (principal); I25.10 Atherosclerotic heart disease of native coronary artery without angina pectoris; Z95.1 Presence of aortocoronary bypass graft
CPT/HCPCS: 36415; 80061; 80076

== ENCOUNTER → 2023-01-17 | Outpatient (CLI) | payer MEDICARE, SELFPAY ==
--- NOTE | 2023-01-17 07:45 | MRI_ITS ---
STUDY: MRI LUMBAR SPINE WITHOUT CONTRAST REASON FOR EXAM: Male, 77 years old. PAIN TECHNIQUE: Standardized fat and water weighted pulse sequences were obtained in the sagittal and axial planes. COMPARISON: CT of abdomen and pelvis dated December 28, 2022. X-ray the lumbar spine dated December 26, 2022 FINDINGS: There is an exaggerated lumbar lordosis. There is no substantial scoliosis. Normal conus medullaris that terminates at the L1 level. No marrow edema or fracture or compression deformity is present. T12-L1: Normal endplates. Normal disc height, hydration and morphology. Normal bilateral facet joints. Normal central canal and bilateral lateral recesses. Normal bilateral intervertebral neural foramina. L1-2: Normal endplates. Diffuse disc desiccation with mild posterior disc space narrowing and slight annular bulging. Slight retrolisthesis of 2 to 3 mm. Normal bilateral facet joints. Normal central canal and bilateral lateral recesses. Normal bilateral intervertebral neural foramina. L2-3: Diffuse disc desiccation with mild posterior disc space narrowing and slight annular bulging. Slight retrolisthesis of less than 2 mm. Mild endplate spurring and degenerative changes. Mild facet joint hypertrophy. Mild left foraminal stenosis with impingement. Normal right neural foramen. Normal central canal and bilateral lateral recesses. L3-4: Moderate to severe disc space narrowing with a diffuse disc bulge/osteophyte complex. Moderate facet joint hypertrophy. Moderate left foraminal stenosis with nerve root compression. Mild right foraminal stenosis. Normal bilateral facet joints. Normal central canal and bilateral lateral recesses. Slight retrolisthesis of less than 2 mm. L4-5: Moderate disc space narrowing with a diffuse disc bulge. Anterolisthesis of L4 and L5 of 4 mm. No visualized pars interarticularis defects. Moderate to severe right foraminal stenosis with nerve root compression. Mild left foraminal stenosis. Mild to moderate central canal stenosis. Superimposed right paracentral disc protrusion results in right lateral recess stenosis with nerve root compression. L5-S1: Moderate to significant disc space narrowing with diffuse disc desiccation and broad-based disc herniation. Mild anterolisthesis of L4 and L5 of 2 to 3 mm. Mild facet joint hypertrophy. Normal central canal and bilateral lateral recesses. Normal bilateral intervertebral neural foramina. Normal visualized sacral ala. There is mild paraspinal muscular atrophy. MRI/Spine Lumbar (Routine) IMPRESSION: 1. Multilevel degenerative changes, as described above. 2. Right paracentral disc protrusion at L4-L5 resulting in right lateral recess stenosis with nerve root compression 3. Mild to moderate central canal stenosis at L4-L5 4. Multilevel foraminal stenosis Electronically Signed: Sandro Campbell MD at 11:53 EDT ,
== END | disposition home or self-care (01) ==
PROVIDERS: PCP Family Medicine; Referring Provider Orthopaedic Surgery; Visit Provider Orthopaedic Surgery
DX: M48.061 Spinal stenosis, lumbar region without neurogenic claudication (principal); I48.0 Paroxysmal atrial fibrillation; Z79.01 Long term (current) use of anticoagulants
CPT/HCPCS: 36415; 72148; 85610

== ENCOUNTER 2023-02-01 10:32 | Outpatient (RCR) | payer MEDICARE, SELFPAY ==
[2023-01-17 09:32] LABS: International Normalized Ratio 3.4; Prothrombin Time (Protime)PT. 34.9 SECONDS (11.7-14.9)
[2023-02-01 12:38] LABS: International Normalized Ratio 2.7; Prothrombin Time (Protime)PT. 28.7 SECONDS (11.7-14.9)
== END 2023-02-12 18:00 | disposition home or self-care (01) ==
LOC: MTLAB 10:32
PROVIDERS: PCP Family Medicine; Referring Provider Nurse Practitioner Family; Visit Provider Nurse Practitioner Family
DX: I48.0 Paroxysmal atrial fibrillation (principal); Z79.01 Long term (current) use of anticoagulants
CPT/HCPCS: 36415; 85610

== ENCOUNTER 2023-03-14 11:09 | Outpatient (RCR) | payer MEDICARE, SELFPAY ==
[2023-02-20 08:26] LABS: International Normalized Ratio 1.1; Prothrombin Time (Protime)PT. 14.5 SECONDS (11.7-14.9)
[2023-02-28 12:24] LABS: Absolute Lymphocyte Count 1.56 X10^3/uL (0.83-4.51); Absolute Neutrophil Count 7.2 X10^3/uL (2.0-7.7); Basophil# 0.08 X10^3/uL; Basophil% 0.8 % (0-1); Eosinophil# 0.12 X10^3/uL; Eosinophils% 1.2 % (0-5); Hematocrit 46.9 % (40-54); Hemoglobin 14.9 g/dL (13.0-16.5); Lymphocyte # 1.56 X10^3/ul (0.83-4.51); Lymphocyte % 15.3 % (19-41); Mean Corp Hgb Conc 31.8 g/dL (32-36); Mean Corpuscular Hgb 31.9 pg (27.0-32.0); Mean Corpuscular Volume 100.4 fL (80-94); Mean Platelet Vol. 10.1 fl (6.2-12.0); Monocyte# 1.14 X10^3/uL; Monocyte% 11.2 % (0-10); NRBC Flagged by Analyzer 0 % (0-5); Neutrophil # 7.23 X10^3/uL (2.7-7.7); Neutrophil % 70.8 % (47-70); Platelet Count 230 K/mm3 (150-450); RBC Distribution Width CV 13.2 % (11.6-14.6); RBC Distribution Width SD 48.8 fl (35.1-43.9); RET-HE 35.4 pg (30-35); Red Blood Count 4.67 M/mm3 (4.6-6.2); Reticulocyte Count 1.62 % (0.5-1.5); White Blood Count 10.2 K/mm3 (4.4-11.0)
[2023-02-28 12:36] LABS: International Normalized Ratio 1.8; Prothrombin Time (Protime)PT. 21.1 SECONDS (11.7-14.9)
[2023-02-28 13:09] LABS: Vitamin B12 287 pg/mL (211-911)
[2023-02-28 13:30] LABS: ALB/GLOB Ratio 0.9 RATIO (0.9-2.4); AST(SGOT) 16 U/L (15-37); Alanine Aminotransfer ALT/SGPT 20 U/L (16-61); Albumin, Serum 3.5 g/dL (3.2-5.0); Alkaline Phosphatase 82 U/L (45-117); Anion Gap 5 (5-15); BUN 36 mg/dL (7-18); BUN/Creat Ratio 22.8 RATIO (10-20); Calcium,Total 9.1 mg/dL (8.5-10.1); Chloride 106 mmol/L (98-107); Creatinine, Serum 1.58 mg/dL (0.70-1.30); EST Glomerular Filtration Rate 46 mL/min (>60); Est Glom Filt Rate - Afr Amer 55 mL/min (>60); Ferritin 166 ng/mL (26-388); Globulin 3.7 g/dL (2.2-4.2); Glucose 72 mg/dL (74-106); Iron Binding Capacity,Total 285 ug/dL (250-450); Potassium 4.5 mmol/L (3.5-5.1); Protein, Total 7.2 g/dL (6.4-8.2); Sodium Level 138 mmol/L (136-145)
[2023-03-14 12:24] LABS: International Normalized Ratio 2.6; Prothrombin Time (Protime)PT. 28.1 SECONDS (11.7-14.9)
== END 2023-03-14 18:00 | disposition home or self-care (01) ==
LOC: MTLAB 11:09
PROVIDERS: PCP Family Medicine; Referring Provider Nurse Practitioner Family; Visit Provider Nurse Practitioner Family
DX: I48.0 Paroxysmal atrial fibrillation (principal); Z79.01 Long term (current) use of anticoagulants
CPT/HCPCS: 36415; 80053; 82607; 82728; 82746; 83550; 85025; 85045; 85610

== ENCOUNTER 2023-03-29 11:25 | Outpatient (RCR) | payer MEDICARE, SELFPAY ==
[2023-03-29 15:21] LABS: International Normalized Ratio 2.7; Prothrombin Time (Protime)PT. 29.4 SECONDS (11.7-14.9)
== END 2023-03-29 18:00 | disposition home or self-care (01) ==
LOC: MTLAB 11:25
PROVIDERS: PCP Family Medicine; Referring Provider Nurse Practitioner Family; Visit Provider Nurse Practitioner Family
DX: I48.0 Paroxysmal atrial fibrillation (principal); Z79.01 Long term (current) use of anticoagulants
CPT/HCPCS: 36415; 85610

== ENCOUNTER 2023-05-10 10:51 | Outpatient (RCR) | payer MEDICARE, SELFPAY ==
[2023-05-01 15:18] LABS: International Normalized Ratio 1.9; Prothrombin Time (Protime)PT. 22.3 SECONDS (11.7-14.9)
[2023-05-10 12:26] LABS: International Normalized Ratio 2.6; Prothrombin Time (Protime)PT. 28.3 SECONDS (11.7-14.9)
== END 2023-05-10 18:00 | disposition home or self-care (01) ==
LOC: MTLAB 10:51
PROVIDERS: PCP Family Medicine; Referring Provider Nurse Practitioner Family; Visit Provider Nurse Practitioner Family
DX: I48.0 Paroxysmal atrial fibrillation (principal); Z79.01 Long term (current) use of anticoagulants
CPT/HCPCS: 36415; 85610

== ENCOUNTER → 2023-05-31 | Outpatient (CLI) | payer MEDICARE, SELFPAY ==
[2023-05-31 15:17] LABS: AST(SGOT) 17 U/L (15-37); Alanine Aminotransfer ALT/SGPT 19 U/L (16-61); Albumin, Serum 3.6 g/dL (3.2-5.0); Alkaline Phosphatase 78 U/L (45-117); Anion Gap 8 (5-15); BUN 30 mg/dL (7-18); BUN/Creat Ratio 20.3 RATIO (10-20); Calcium,Total 8.9 mg/dL (8.5-10.1); Chloride 106 mmol/L (98-107); Creatinine, Serum 1.48 mg/dL (0.70-1.30); EST Glomerular Filtration Rate 49 mL/min (>60); Est Glom Filt Rate - Afr Amer 59 mL/min (>60); Globulin 3.6 g/dL (2.2-4.2); Glucose 99 mg/dL (74-106); Potassium 4.3 mmol/L (3.5-5.1); Protein, Total 7.2 g/dL (6.4-8.2); Sodium Level 141 mmol/L (136-145); Thyroid Stim Hormone (TSH) 0.47 uIU/mL (0.358-3.74)
[2023-05-31 15:40] LABS: Vitamin D,25 Hydroxy 67.5 ng/mL
== END | disposition home or self-care (01) ==
LOC: MTLAB 11:25
PROVIDERS: PCP Family Medicine; Referring Provider Internal Medicine Endocrinology, Diabetes & Metabolism; Visit Provider Internal Medicine Endocrinology, Diabetes & Metabolism
DX: E04.2 Nontoxic multinodular goiter (principal); E55.9 Vitamin D deficiency, unspecified
CPT/HCPCS: 36415; 80053; 82306; 84443

== ENCOUNTER 2023-06-14 09:05 | Outpatient (RCR) | payer MEDICARE, SELFPAY ==
[2023-06-14 10:21] LABS: International Normalized Ratio 3.1; Prothrombin Time (Protime)PT. 32.7 SECONDS (11.7-14.9)
== END 2023-06-14 18:00 | disposition home or self-care (01) ==
LOC: MTLAB 09:05
PROVIDERS: PCP Family Medicine; Referring Provider Nurse Practitioner Family; Visit Provider Nurse Practitioner Family
DX: I48.0 Paroxysmal atrial fibrillation (principal); Z79.01 Long term (current) use of anticoagulants
CPT/HCPCS: 36415; 85610

== ENCOUNTER 2023-07-11 10:23 | Outpatient (RCR) | payer MEDICARE, SELFPAY ==
[2023-07-11 12:28] LABS: International Normalized Ratio 3.5; Prothrombin Time (Protime)PT. 35.6 SECONDS (11.7-14.9)
== END 2023-07-15 18:00 | disposition home or self-care (01) ==
LOC: MTLAB 10:23
PROVIDERS: PCP Family Medicine; Referring Provider Nurse Practitioner Family; Visit Provider Nurse Practitioner Family
DX: I48.0 Paroxysmal atrial fibrillation (principal); Z79.01 Long term (current) use of anticoagulants
CPT/HCPCS: 36415; 85610

== ENCOUNTER → 2023-07-17 | Outpatient (CLI) | payer MEDICARE, SELFPAY ==
--- NOTE | 2023-07-17 09:45 | CDU_ITS ---
Reason For Study: Carotid Stenosis Rt. Velocities/BP Lt. Velocities/BP Prox CCA 86.9/19.4 cm/sec. Prox CCA 128.6/29.9 cm/sec. Mid CCA 92.8/20.4 cm/sec. Mid CCA 135.2/45.2 cm/sec. Dist CCA 106.3/19.2 cm/sec. Dist CCA 96.5/25.3 cm/sec. Prox ICA 79.8/14.9 cm/sec. Prox ICA 159.7/32.7 cm/sec. Mid ICA 72.1/20.4 cm/sec. Mid ICA 122.2/21.4 cm/sec. Dist ICA 111.1/25.5 cm/sec. Dist ICA 86.7/26.5 cm/sec. Rt. ICA/CCA = 1.2. Lt. ICA/CCA = 1.2. Prox ECA 127.4/11.3 cm/sec. Prox ECA 192.7/27.8 cm/sec. Rt. Vert. 83.3/12.1 cm/sec. Lt. Vert. 56.2/10.1 cm/sec. Right Extracranial There is heterogeneous, irregular atherosclerotic plaque noted in the right common carotid artery. There is heterogeneous, irregular atherosclerotic plaque noted in the right internal carotid artery. The atherosclerotic plaque causes acoustic shadowing. There is heterogeneous, irregular atherosclerotic plaque noted in the right external carotid artery. Antegrade flow is noted in the right vertebral artery. Left Extracranial There is heterogeneous, irregular atherosclerotic plaque noted in the left common carotid artery. There is heterogeneous, irregular atherosclerotic plaque noted in the left internal carotid artery. There is heterogeneous, irregular atherosclerotic plaque noted in the left external carotid artery. Antegrade flow is noted in the left vertebral artery. Procedure Carotid Duplex [id number]. This is a Carotid Duplex examination using B-mode, color flow and specral Doppler. The exam was diagnostic. Exam performed in department. VL/Carotid Duplex Ultrasound Interpretation Summary Calcific irregular plaque at the proximal right internal carotid artery with le ss than 50% stenosis Less than 50% stenosis right external carotid artery Irregular calcific plaque at the proximal left internal carotid artery with 50 to 69% stenosis Less than 50% stenosis left external carotid artery Patent and antegrade vertebral arteries bilaterally Previous slightly elevated velocities within the right vertebral in the left ex ternal carotid on examination June 30, 2022 not repeated on today's exam. Ordering Physician: Chris Vasquez Referring Physician: Jae Wright MD Performed By: Ricky Carvajal RVT
== END | disposition home or self-care (01) ==
PROVIDERS: PCP Family Medicine; Referring Provider Surgery; Visit Provider Surgery
DX: I65.23 Occlusion and stenosis of bilateral carotid arteries (principal); Z95.1 Presence of aortocoronary bypass graft; R09.89 Other specified symptoms and signs involving the circulatory and respiratory systems; E78.00 Pure hypercholesterolemia, unspecified; Z95.5 Presence of coronary angioplasty implant and graft
CPT/HCPCS: 93880

== ENCOUNTER 2023-07-19 08:52 | Outpatient (RCR) | payer MEDICARE, SELFPAY ==
[2023-07-19 10:25] LABS: International Normalized Ratio 2.9; Prothrombin Time (Protime)PT. 30.4 SECONDS (11.7-14.9)
== END 2023-07-19 18:00 | disposition home or self-care (01) ==
LOC: LAB 08:52
PROVIDERS: PCP Family Medicine; Referring Provider Nurse Practitioner Family; Visit Provider Nurse Practitioner Family
DX: I48.0 Paroxysmal atrial fibrillation (principal); Z79.01 Long term (current) use of anticoagulants
CPT/HCPCS: 36415; 85610

== ENCOUNTER → 2023-07-19 | Outpatient (CLI) | payer MEDICARE, SELFPAY ==
--- OUTSIDE RECORDS SUMMARY | 2023-07-19 06:34 | XMS RPT_ITS | CCD ---
Author Name Unknown Address [id number] [place] [address] Organization [facility] Care Team Providers Care Support Services Manager Name Role Phone Georgia Hopson Unavailable Unavailable Carter Nava Unavailable Unavailable Michael OVERTON, Heike Spence Unavailable Jason Dahl MD Unavailable Georgia Hopson Unavailable Unavailable Michael OVERTON, Heike Spence Unavailable Michael OVERTON, Heike Spence Unavailable Kiara Rios RN Unavailable Unavailable Wright, Keiry Tl Primary Care Provider Michael OVERTON, Heike Spence Unavailable Georgia Hopson Unavailable Unavailable Michael OVERTON, Heike Spence Unavailable TIAN Kong, Morenita Roe Unavailable Unavailsmiley e DEBBIE GOMES Admitting Unavailab DEBBIE Fisher Attending Unavailab le WRIGHT, KEIRY TL Primary Care Unavailable DEBBIE GOMSE Attending Unavailab le WRIGHT, KEIRY TL Primary Care Unavailable ALYSHA COLEMAN Attending Unavailable KYLE, KEIRY TL Primary Care Unavailable DEBBIE GOMES Attending Unavailab himanshu WRIGHT, KEIRY TL Primary Care Unavailable DEBBIE GOMES Attending Unavailab le WRIGHT, KEIRY TL Primary Care Unavailable DEBBIE GOMES Attending Unavailab le WRIGHT, KEIRY TL Primary Care Unavailable Wright, Keiry Tl Primary Care Provider Kyle MCKEON, Keiry Tl Primary Care Provider Jason Dahl Unavailable Nicolas Sun DO Unavailable Debbie Gomes Unavailable [phone] Dao Manzo Unavailable Natalio MCKEON, Callum Hays Unavailable Donaldo Gong Unavailable ROOF, JAMARCUS Referring Unavailable WRIGHT, KEIRY TL Primary Care Unavailable WRIGHT, KEIRY TL Primary Care Unavailable ROOF, JAMARCUS Referring Unavailable WRIGHT, KEIRY TL Primary Care Unavailable ROOF, JAMARCUS Referring Unavailable WRIGHT, KEIRY TL Primary Care Unavailable ROOF, JAMARCUS Referring Unavailable WRIGHT, KEIRY TL Primary Care Unavailable JASON DAHL Referring Unavailable WRIGHT, KEIRY TL Primary Care Unavailable ROOF, JAMARCUS Referring Unavailable WRIGHT, KIERY TL Primary Care Unavailable ROOF, JAMARCUS Referring Unavailable WRIGHT, KEIRY TL Primary Care Unavailable ROOF, JAMARCUS Referring Unavailable ROOF, JAMARCUS Referring Unavailable WRIGHT, KEIRY TL Primary Care Unavailable WRIGHT, KEIRY TL Primary Care Unavailable ROOF, JAMARCUS Referring Unavailable WRIGHT, KEIRY TL Primary Care Unavailable WRIGHT, KEIRY TL Primary Care Unavailable WRIGHT, KEIRY TL Primary Care Unavailable ROOF, JAMARCUS Referring Unavailable WRIGHT, KEIRY TL Primary Care Unavailable ROOF, JAMARCUS Referring Unavailable WRIGHT, KEIRY TL Primary Care Unavailable ROOF, JAMARCUS Referring Unavailable WRIGHT, KEIRY TL Primary Care Unavailable ROOF, JAMARCUS Referring Unavailable WRIGHT, KEIRY TL Primary Care Unavailable DONALDO GONG Referring Unavailable WRIGHT, KEIRY TL Primary Care Unavailable NICOLAS SUN Referring Unavailable WRIGHT, KEIRY TL Primary Care Unavailable ROOF, JAMARCUS Referring Unavailable WRIGHT, KEIRY TL Primary Care Unavailable ROOF, JAMARCUS Referring Unavailable WRIGHT, KEIRY TL Primary Care Unavailable ROOF, JAMARCUS Referring Unavailable WRIGHT, KEIRY TL Primary Care Unavailable ROOF, JAMARCUS Referring Unavailable Nicolas Sun DO Unavailable Debbie Gomes Unavailable [phone] Dao Manzo MD Unavailable Callum Lance MD Unavailable Donaldo Gong Unavailable Kyle MCKEON, Keiry Hays Primary Care Provider [phone] Gregor MCKEON, Osmin Unavailable CALLUM LANCE Attending Unavailable KEIRY WRIGHT Referring Unavailable KEIRY WRIGHT Primary Care Unavailable Allergies Allergy Classification Reported Allergen(s) Allergy Type Date of Onset Reaction(s) Facility (13 sources) amiodarone drug allergy 5 Pulmonary fibrosis [facility] Work Phone: (13 sources) Hmg-Coa Reductase Inhibitors (Statins) drug allergy 4 mylagias [facility] Work Phone: (18 sources) NKA drug allergy 1 [facility] Work Phone: (15 sources) Amiodarone; Translations: [Unknown] Drug Allergy 8 Shortness Of Breath [facility] (7 sources) Hmg-Coa Reductase Inhibitors (Statins); Translations: [GOUHWNU-HHS-QK A REDUCTASE INHIBITORS] Propensity to adverse reactions to drug 4 Myalgia [facility] (4 sources) beta-Blocking agent; Translations: [BETA-BLOCKERS (BETA-ADRENERGI C BLOCKING AGTS)] Drug Intolerance 0 Other: See Comments [facility] Work Phone: (4 sources) Grass pollen; Translations: [GRASS POLLEN] Drug Allergy 7 Other: See Comments [facility] Work Phone: (4 sources) Tree; Translations: [TREES] Allergy to substance 7 Other: See Comments [facility] Work Phone: (4 sources) Ragweed; Translations: [RAGWEED] Allergy to substance 7 Other: See Comments [facility] Work Phone: Medications Current Medications Medication Drug Class(es) Dates Sig (Normalized) Sig (Original) acetaminophen 500 mg oral capsule (9 sources) Start: 06-18-2015 acetaminophen 500 mg coapsule acetaminophen 300 mg / codeine phosphate 30 mg oral tablet (2 sources) Opioid Agonist Start: 08-08-2019 End: 08-11-2019 take 1 tablet by mouth once as needed for pain, then take 2 tablets by mouth every four hours as needed for pain acetaminophen-codei ne (Tylenol-Codeine #3) 300-30 mg per tablet Indications: Cubital tunnel syndrome on right Take 1 (one) tablet to 2 (two) tablets by mouth every 4 (four) hours as needed for pain 7 days . 12 tablet 0 08/08/2019 08/11/2019 Active acetaminophen 325 mg / HYDROcodone bitartrate 5 mg oral tablet (4 sources) Opioid Agonist Start: 07-05-2019 take 1 tablet by mouth every four hours as needed HYDROcodone-acetami nophen (NORCO) 5-325 mg per tablet Take 1 tablet by mouth every 4 (four) hours as needed for pain . 0 07/05/2019 Active 24 hr dilTIAZem hydrochloride 120 mg extended release oral capsule (20 sources) Calcium Channel Sania Start: 05-21-2015 CARTIA XT 120 mg 24 hr capsule Completed/Discontinued Medications Medication Drug Class(es) Dates Sig (Normalized) Sig (Original) [id number] 200 actuat albuterol 0.09 mg/actuat metered dose inhaler (2 sources) beta2-Adrenergic Agonist Start: 12-29-2019 take 2 puff(s) by mouth every four hours as needed for cough albuterol HFA (PROVENTIL HFA, VENTOLIN HFA) 90 mcg/actuation inhaler INHALE 2 PUFFS BY MOUTH EVERY 4 HOURS NEEDED FOR COUGH OR SHORTNESS OF BREATH 0 12/29/2019 Active Problems Active Problems Problem Classification Problem Date Documented Date Episodic/Chronic Cardiac dysrhythmias (20 sources) Atrial fibrillation; Translations: [Atrial flutter] Onset: 11-16-2010 11-16-2010 Chronic Coronary atherosclerosis and other heart disease (20 sources) Atherosclerotic heart disease of [place] coronary artery without angina pectoris; Translations: [Coronary arteriosclerosis] Onset: 04-25-2013 05-25-2016 Chronic Diabetes mellitus without complication (2 sources) Type 2 diabetes mellitus without complication; Translations: [Type 2 diabetes mellitus without complications] Onset: 03-16-2017 11-19-2019 Chronic Disorders of lipid metabolism (16 sources) Hyperlipidemia; Translations: [Hyperlipidemia, unspecified] Onset: 11-16-2010 11-16-2010 Chronic Esophageal disorders (1 source) Gastroesophageal reflux disease; Translations: [Gastro-esophageal reflux disease without esophagitis] Onset: 02-08-2022 02-14-2023 Chronic Essential hypertension (17 sources) Hypertensive disorder; Translations: [Benign essential hypertension] Onset: 11-16-2010 11-16-2010 Chronic Fracture of lower limb (1 source) Salter-Agustin Type I physeal fracture of upper end of right femur, initial encounter for closed fracture; Translations: [Closed Salter-Agustin Type I physeal fracture of upper end of right femur (HCC)] Onset: 11-16-2022 Episodic Heart valve disorders (2 sources) Aortic stenosis, non-rheumatic ; Translations: [Nonrheumatic aortic (valve) stenosis] Onset: 11-19-2019 11-19-2019 Chronic Occlusion or stenosis of precerebral arteries (1 source) Bilateral stenosis of carotid arteries; Translations: [Occlusion and stenosis of bilateral carotid arteries] Onset: 09-07-2022 02-14-2023 Chronic Osteoarthritis (1 source) Primary osteoarthritis, right wrist; Translations: [Arthritis of right wrist] Chronic Other aftercare (4 sources) Long-term current use of anticoagulant; Translations: [senior living (current) use of anticoagulants] Episodic Other circulatory disease (1 source) Peripheral arterial occlusive disease; Translations: [Disorder of arteries and arterioles, unspecified] Onset: 09-07-2022 02-14-2023 Chronic Other circulatory disease (2 sources) History of atrial flutter; Translations: [Personal history of other diseases of the circulatory system] 11-19-2019 Episodic Other connective tissue disease (1 source) Pain in upper limb; Translations: [Arthralgia of right wrist] Episodic Other lower respiratory disease (15 sources) Fibrosis of lung; Translations: [Pulmonary fibrosis, unspecified] Onset: 10-06-2014 10-06-2014 Chronic Other nervous system disorders (11 sources) Cubital tunnel syndrome; Translations: [Cubital tunnel syndrome on right] Onset: 07-30-2019 07-30-2019 Chronic Other nervous system disorders (2 sources) Carpal tunnel syndrome; Translations: [Carpal tunnel syndrome, unspecified upper limb] Onset: 06-13-2005 06-13-2005 Chronic Other non-traumatic joint disorders (3 sources) Arthritis of right wrist; Translations: [Arthritis of right wrist] Other nutritional; endocrine; and metabolic disorders (20 sources) Body mass index (BMI) 30.0-30.9, adult; Translations: [Body mass index (BMI) 32.0-32.9, adult] Onset: 09-26-2013 Resolved: 06-18-2015 09-26-2013 Chronic Other nutritional; endocrine; and metabolic disorders (6 sources) Body mass index (BMI) 32.0-32.9, adult; Translations: [Body mass index (BMI) 32.0-32.9, adult] Onset: 09-18-2014 09-18-2014 Chronic Other nutritional; endocrine; and metabolic disorders (2 sources) Obese class I; Translations: [Obesity, unspecified] Onset: 02-23-2020 02-24-2020 Chronic Residual codes; unclassified (3 sources) Obstructive sleep apnea syndrome; Translations: [Obstructive sleep apnea (adult) (pediatric)] Chronic Residual codes; unclassified (12 sources) H/O cardiac surgery; Translations: [Other specified postprocedural states] Onset: 12-01-2005 Episodic Thyroid disorders (19 sources) Hyperthyroidism; Translations: [Non-toxic multinodular goiter] Onset: 04-23-2007 01-21-2014 Chronic Unclassified (9 sources) Preoperative cardiovascular examination ; Translations: [Encounter for preprocedural cardiovascular examination] Onset: 05-20-2014 05-20-2014 Unclassified (9 sources) Placement of stent in coronary artery ; Translations: [Presence of cardiac and vascular implant and graft, unspecified] Onset: 05-25-2016 05-25-2016 Unclassified (6 sources) Long-term drug therapy; Translations: [Other intermediate designer (current) drug therapy] Onset: 11-16-2010 11-16-2010 Unclassified (6 sources) Warfarin therapy started; Translations: [senior living (current) use of anticoagulants] Onset: 05-03-2016 05-03-2016 Unclassified (1 source) Other persistent atrial fibrillation; Translations: [Persistent atrial fibrillation (HCC)] Onset: 02-24-2020 Past or Other Problems Problem Classification Problem Date Documented Da te Episodic/Chronic Calculus of urinary tract (2 sources) Kidney stone; Translations: [Calculus of kidney] Onset: 11-19-2019 11-19-2019 Episodic Coronary atherosclerosis and other heart disease (8 sources) Aortocoronary bypass graft present; Translations: [Presence of aortocoronary bypass graft] Onset: 03-08-2018 Episodic Heart valve disorders (13 sources) Heart murmur; Translations: [Cardiac murmur, unspecified] Onset: 04-07-2015 04-07-2015 Episodic Malaise and fatigue (15 sources) Fatigue; Translations: [Other fatigue] Onset: 04-03-2013 04-03-2013 Episodic Other aftercare (14 sources) Other intermediate designer (current) drug therapy; Translations: [intermediate card tender (current) use of anticoagulants] Onset: 11-16-2010 11-16-2010 Episodic Other aftercare (2 sources) Warfarin therapy started; Translations: [intermediate card tender (current) use of anticoagulants] Onset: 05-03-2016 11-19-2019 Episodic Other aftercare (2 sources) senior living (current) use of anticoagulants; Translations: [senior living (current) use of anticoagulants] Onset: 02-24-2020 Episodic Other lower respiratory disease (15 sources) Dyspnea; Translations: [Shortness of breath] Onset: 11-16-2010 11-16-2010 Episodic Pleurisy; pneumothorax; pulmonary collapse (2 sources) Atelectasis; Translations: [Atelectasis] Onset: 02-12-2018 03-08-2018 Episodic Residual codes; unclassified (5 sources) Other specified personal risk factors, not elsewhere classified; Translations: [Other specified personal history presenting hazards to health] Onset: 11-19-2019 Episodic Residual codes; unclassified (2 sources) H/O: atrial fibrillation; Translations: [Other specified postprocedural states] Onset: 02-24-2020 02-24-2020 Episodic Residual codes; unclassified (3 sources) Other specified postprocedural states; Translations: [Status post catheter ablation of atrial fibrillation] Onset: 11-19-2019 Episodic Spondylosis; intervertebral disc disorders; other back problems (2 sources) Neck pain; Translations: [Cervicalgia] Onset: 01-03-2018 11-19-2019 Episodic Unclassified (9 sources) Percutaneous transluminal coronary angioplasty ; Translations: [Coronary angioplasty status] Onset: 04-25-2013 04-25-2013 Results Test Name Value Interpretation Reference Range Facil ity Vital Signs Date Time Vital Sign Value Performing Clinician Facility 02-16-2023 12:52-0400 Body height 177.8 cm Callum Lance MD Work Phone: [facility] 02-16-2023 12:52-0400 Body weight 105.69 kg Callum Lance MD Work Phone: [facility] 02-16-2023 12:52-0400 Diastolic blood pressure 70 mm[Hg] Callum Lance MD Work Phone: [facility] 02-16-2023 12:52-0400 Heart rate 55 /min Callum Lance MD Work Phone: [facility] 02-16-2023 12:52-0400 SaO2% (BldA) [Mass fraction] 96 % Callum Lance MD Work Phone: [facility] 02-16-2023 12:52-0400 Systolic blood pressure 122 mm[Hg] Callum Lance MD Work Phone: [facility] 02-16-2022 15:00-0400 Body height 177.8 cm Callum Lance MD Work Phone: [facility] 02-16-2022 15:00-0400 Body weight 104.78 kg Callum Lance MD Work Phone: [facility] 02-16-2022 15:00-0400 Diastolic blood pressure 79 mm[Hg] Callum Lance MD Work Phone: [facility] 02-16-2022 15:00-0400 Heart rate 51 /min Callum Lance MD Work Phone: [facility] 02-16-2022 15:00-0400 Respiratory rate 18 /min Callum Lance MD Work Phone: [facility] 02-16-2022 15:00-0400 SaO2% (BldA) [Mass fraction] 98 % Callum Lance MD Work Phone: [facility] 02-16-2022 15:00-0400 Systolic blood pressure 131 mm[Hg] Callum Lance MD Work Phone: [facility] 08-08-2019 14:07-0500 Body Temperature 96.1 [degF] Debbie Gomes [facility] 08-08-2019 14:07-0500 BP Diastolic 83 mm[Hg] Debbieangeles Gomes [facility] 08-08-2019 14:07-0500 BP Systolic 132 mm[Hg] Debbie Gomes [facility] 08-08-2019 14:07-0500 Pulse (Heart Rate) 75 /min Debbie Gomes [facility] 08-08-2019 14:07-0500 Pulse Oximetry 93 % Debbie Gomes [facility] 08-08-2019 14:07-0500 Respiratory Rate 16 /min Debbie Eliseo [facility] 08-08-2019 08:16-0500 BMI (Body Mass Index) 32.9 kg/m2 Debbie Gomes [facility] 08-08-2019 08:16-0500 Body weight 104 kg Debbieangeles Gomes [facility] 08-08-2019 08:16-0500 Height 177.8 cm Debbieangeles Gomes [facility] 02-26-2017 15:32-0400 BMI (Body Mass Index) 30.4 kg/m2 [facility] Work Phone: 02-26-2017 15:32-0400 BP Diastolic 74 mm[Hg] [facility] Work Phone: 02-26-2017 15:32-0400 BP Systolic 116 mm[Hg] Nashtalle Elijah [facility] Work Phone: 02-26-2017 15:32-0400 Height 180.34 cm [facility] Work Phone: 02-26-2017 15:32-0400 Pulse (Heart Rate) 74 /min [facility] Work Phone: 02-26-2017 15:32-0400 Weight 98.88 kg [facility] Work Phone: 05-24-2016 15:45-0500 BMI (Body Mass Index) 32.77 kg/m2 Heike Rodriguez RN [facility] Work Phone: 05-24-2016 15:45-0500 BP Diastolic 70 mm[Hg] [facility] Work Phone: 05-24-2016 15:45-0500 BP Systolic 120 mm[Hg] Heike Rodriguez RN [facility] Work Phone: 05-24-2016 15:45-0500 BSA (Body Surface Area) 2.26 m2 [facility] Work Phone: 05-24-2016 15:45-0500 Pulse (Heart Rate) 64 /min [facility] Work Phone: 05-24-2016 15:45-0500 Respiratory Rate 14 /min [facility] Work Phone: 05-24-2016 15:45-0500 Weight 106.6 kg [facility] Work Phone: 10-11-2015 14:56-0400 Heart rate 71 /min [facility] Work Phone: 07-25-2013 10:08-0500 Heart rate 388 ms [facility] Work Phone: 04-03-2013 10:24-0400 Pulse (Heart Rate) 56 /min [facility] Work Phone: 06-30-2011 15:57-0500 Height 180.34 cm [facility] Work Phone: Encounters Encounter Date Encounter Type Care Provider Facility Start: 02-16-2023 End: 02-16-2023 ambulatory CALLUM LANCE Facility:[facility] Start: 02-16-2023 End: 02-16-2023 Patient encounter procedure Callum Lance MD Work Phone: [facility] Procedures Date Procedure Procedure Detail Performing Clinician Start: 02-16-2023 Ecg routine ecg w/le ast 12 lds w/i&r Callum Lance MD Work Phone: Start: 02-16-2022 Ecg routine ecg w/le ast 12 lds w/i&r Callum Lance MD Work Phone: Start: 12-22-2020 PSA screening Plan of Treatment Date Care Activity Detail Author Start: 07-29-2029 Tetanus vaccination Tetanus: Every 10yrs [facility] Start: 07-29-2029 Urine microalbumin profile DTAP,TDAP,TD (2 - Td or Tdap) [facility] Start: 02-17-2024 BP CONTROLLED (<130/80) BP CONTROLLED (<130/80) [facility] Start: 07-03-2023 Hepatitis B surface antibody level LDL CHOLESTEROL [facility] Start: 03-16-2023 Influenza vaccination INFLUENZA (#1) [facility] Start: 11-24-2022 Hepatitis B surface antibody level LDL CHOLESTEROL [facility] Start: 11-02-2022 Hemoglobin A1c/Hemoglobin.total in Blood HBA1C [facility] Start: 10-02-2022 COVID-19 VACCINE (7 - Mixed Product series) COVID-19 VACCINE (7 - Mixed Product series) [facility] Start: 07-16-2022 ADVANCE DIRECTIVE DISCUSSION ADVANCE DIRECTIVE DISCUSSION [facility] Start: 07-16-2022 DEPRESSION ASSESSMENT DEPRESSION ASSESSMENT [facility] Start: 03-16-2022 Influenza vaccination INFLUENZA (#1) [facility] Start: 11-21-2021 Hemoglobin A1c/Hemoglobin.total in Blood HBA1C [facility] Start: 07-16-2021 ADVANCE DIRECTIVE DISCUSSION ADVANCE DIRECTIVE DISCUSSION [facility] Start: 08-06-2020 Hepatitis B screening URINE ALBUMIN:CREATININE RATIO [facility] Start: 03-16-2020 Influenza vaccination given Sequential Influenza Vaccine (#1) [facility] Start: 11-03-2019 End: 11-03-2019 Office Visit 11/03/2019 Office Visit Sports Medicine Debbie Gomes MD [address] [place] [address] [phone] [facility] Start: 09-22-2019 End: 09-22-2019 Follow-Up 09/22/2019 Follow-Up Sports Medicine Debbie Gomes MD [address] [place] [address] [phone] [facility] Start: 08-22-2019 End: 08-22-2019 Follow-Up 08/22/2019 Follow-Up Sports Medicine Debbie Gomes MD [address] [place] [address] [phone] [facility] Start: 03-16-2019 Influenza vaccination given SEQUENTIAL INFLUENZA VACCINE (#1) [facility] Start: 03-16-2018 Influenza vaccination given SEQUENTIAL INFLUENZA VACCINE (#1) [facility] Start: 08-27-2017 End: 08-27-2017 Appointment Appointment [facility] Work Phone: Start: 07-25-2017 End: 01-31-2017 *Hepatic Function Panel *Hepatic Function Panel [facility] Work Phone: Start: 07-25-2017 End: 01-31-2017 Lipid panel [AGGREGATE] *Lipid Profile CC PCP [facility] Work Phone: Start: 07-25-2017 End: 01-31-2017 *Hepatic Function Panel *Hepatic Function Panel [facility] Work Phone: Start: 07-25-2017 End: 01-31-2017 Lipid panel [AGGREGATE] *Lipid Profile CC PCP [facility] Work Phone: Start: 02-26-2017 End: 02-26-2017 Appointment Appointment [facility] Work Phone: Start: 02-26-2017 End: 02-26-2017 Appointment Appointment [facility] Work Phone: Start: 02-26-2017 End: 02-26-2017 Follow Up Appt 6 months Follow Up Appt 6 months [facility] Work Phone: Start: 02-26-2017 End: 02-26-2017 PFM PFM [facility] Work Phone: Start: 02-26-2017 End: 02-26-2017 Follow Up Appt 6 months Follow Up Appt 6 months [facility] Work Phone: Start: 02-26-2017 End: 02-26-2017 PFM PFM [facility] Work Phone: Start: 01-26-2017 End: 01-26-2017 INR Coag RelTime (PPP) *PT/INR - Standing Order [facility] Work Phone: Start: 01-26-2017 End: 01-26-2017 Coagulation factor induced.INR assay in platelet poor plasma *PT/INR - Standing Order [facility] Work Phone: Start: 01-15-2017 End: 01-19-2017 *Hepatic Function Panel *Hepatic Function Panel [facility] Work Phone: Start: 01-15-2017 End: 01-19-2017 Lipid panel [AGGREGATE] *Lipid Profile CC [facility]CP [facility] Work Phone: Start: 01-15-2017 End: 01-19-2017 *Hepatic Function Panel *Hepatic Function Panel [facility] Work Phone: Start: 01-15-2017 End: 01-19-2017 Lipid panel [AGGREGATE] *Lipid Profile CC [facility] Work Phone: Start: 11-20-2016 End: 11-20-2016 Coagulation factor induced.INR assay in platelet poor plasma *PT/INR - Standing Order [facility] Work Phone: Start: 05-24-2016 End: 07-14-2016 *Hepatic Function Panel *Hepatic Function Panel [facility] Work Phone: Start: 05-24-2016 End: 05-24-2016 Follow Up Appt 6 months Follow Up Appt 6 months [facility] Work Phone: Start: 05-24-2016 End: 07-14-2016 Lipid panel [AGGREGATE] *Lipid Profile CC [facility] Work Phone: Start: 05-24-2016 End: 05-24-2016 PFM [facility]FM [facility] Work Phone: Start: 05-24-2016 End: 07-14-2016 *Hepatic Function Panel *Hepatic Function Panel [facility] Work Phone: Start: 05-24-2016 End: 05-24-2016 Follow Up Appt 6 months Follow Up Appt 6 months [facility] Work Phone: Start: 05-24-2016 End: 07-14-2016 Lipid panel [AGGREGATE] *Lipid Profile CC PCP [facility] Work Phone: Start: 05-24-2016 End: 05-24-2016 PFM PFM [facility] Work Phone: Start: 10-11-2015 End: 10-11-2015 Ecg routine ecg w/least 12 lds w/i&r EKG (In office) [facility] Work Phone: Start: 10-11-2015 End: 10-11-2015 Follow Up Appt 6 months Follow Up Appt 6 months [facility] Work Phone: Start: 10-11-2015 End: 10-11-2015 PFM PFM [facility] Work Phone: Start: 10-11-2015 End: 10-11-2015 Electrocardiogram, complete EKG (In office) [facility] Work Phone: Start: 10-11-2015 End: 10-11-2015 Follow Up Appt 6 months Follow Up Appt 6 months [facility] Work Phone: Start: 10-11-2015 End: 10-11-2015 PFM PFM [facility] Work Phone: Start: 06-16-2015 End: 06-18-2015 *Hepatic Function Panel *Hepatic Function Panel [facility] Work Phone: Start: 06-16-2015 End: 06-18-2015 Lipid panel [AGGREGATE] *Lipid Profile CC PCP [facility] Work Phone: Start: 06-16-2015 End: 06-18-2015 *Hepatic Function Panel *Hepatic Function Panel [facility] Work Phone: Start: 06-16-2015 End: 06-18-2015 Lipid panel [AGGREGATE] *Lipid Profile CC PCP [facility] Work Phone: Start: 04-07-2015 End: 04-07-2015 Ecg routine ecg w/least 12 lds w/i&r EKG (In office) [facility] Work Phone: Start: 04-07-2015 End: 04-07-2015 Echocardiography Echocardiogram (complete) [facility] Work Phone: Start: 04-07-2015 End: 04-07-2015 Follow Up Appt 6 months Follow Up Appt 6 months [employer] Work Phone: Start: 04-07-2015 End: 04-07-2015 PFM PFM [facility] Work Phone: Start: 04-07-2015 End: 04-13-2015 Echocardiography Echocardiogram (complete) [facility] Work Phone: Start: 04-07-2015 End: 04-07-2015 Electrocardiogram, complete EKG (In office) [facility] Phone: Start: 04-07-2015 End: 04-07-2015 Follow Up Appt 6 months Follow Up Appt 6 months [employer] Work Phone: Start: 04-07-2015 End: 04-07-2015 PFM PFM [facility] Work Phone: Start: 12-14-2014 End: 12-15-2014 *Hepatic Function Panel *Hepatic Function Panel [employer] Phone: Start: 12-14-2014 End: 12-15-2014 Lipid panel [AGGREGATE] *Lipid Profile CC PCP [facility] Work Phone: Start: 12-14-2014 End: 12-15-2014 Thyroid stimulating hormone (TSH) *TSH [facility] Work Phone: Start: 12-14-2014 End: 12-15-2014 Thyroxine (T4) *T4 (Total) [facility] Work Phone: Start: 12-14-2014 End: 12-15-2014 *Hepatic Function Panel *Hepatic Function Panel [employer] Work Phone: Start: 12-14-2014 End: 12-15-2014 Lipid panel [AGGREGATE] *Lipid Profile CC PCP [facility] Work Phone: Start: 12-14-2014 End: 12-15-2014 Thyroid stimulating hormone (TSH) *TSH [facility] Work Phone: Start: 12-14-2014 End: 12-15-2014 Thyroxine (T4) *T4 (Total) [facility] Work Phone: Start: 10-06-2014 End: 10-06-2014 Pulmonary Referral Pulmonary Referral Ben Boothe, [facility] [place], [address], [place], [address] [facility] Work Phone: Start: 10-06-2014 End: 10-06-2014 Pulmonary Referral Pulmonary Referral Ben Boothe, [facility] [place], [address], [place], [address] [facility] Work Phone: Start: 09-23-2014 End: 02-02-2017 Chest x-ray X-Ray, Chest, PA & Lateral [facility] Work Phone: Start: 09-23-2014 End: 02-02-2017 Chest x-ray X-Ray, Chest, PA & Lateral [facility] Work Phone: Start: 09-18-2014 End: 09-18-2014 Follow Up Appt 6 months Follow Up Appt 6 months [facility] Work Phone: Start: 09-18-2014 End: 09-18-2014 PFM PFM [facility] Work Phone: Start: 09-18-2014 End: 09-18-2014 Pulmonary Function Test - complete Pulmonary Function Test - complete [facility] Work Phone: Start: 09-18-2014 End: 09-18-2014 Follow Up Appt 6 months Follow Up Appt 6 months [facility] Work Phone: Start: 09-18-2014 End: 09-18-2014 PFM PFM [facility] Work Phone: Start: 09-18-2014 End: 09-18-2014 Pulmonary Function Test - complete Pulmonary Function Test - complete [facility] Work Phone: Start: 08-05-2014 End: 08-05-2014 Ecg routine ecg w/least 12 lds w/i&r EKG (In office) [facility] Work Phone: Start: 08-05-2014 End: 08-05-2014 Follow Up Appt 6 weeks Follow Up Appt 6 weeks [facility] Work Phone: Start: 08-05-2014 End: 08-05-2014 MMM MMM [facility] Work Phone: Start: 08-05-2014 End: 08-05-2014 Electrocardiogram, complete EKG (In office) [facility] Work Phone: Start: 08-05-2014 End: 08-05-2014 Follow Up Appt 6 weeks Follow Up Appt 6 weeks [facility] Work Phone: Start: 08-05-2014 End: 08-05-2014 MMM MMM [facility] Work Phone: Start: 07-17-2014 End: 08-05-2014 INR Coag RelTime (PPP) *PT/INR - Standing Order [facility] Work Phone: Start: 07-17-2014 End: 08-05-2014 Coagulation factor induced.INR assay in platelet poor plasma *PT/INR - Standing Order [facility] Work Phone: Start: 05-20-2014 End: 05-20-2014 Ecg routine ecg w/least 12 lds w/i&r EKG (In office) [facility] Work Phone: Start: 05-20-2014 End: 05-20-2014 Follow Up Appt Other Follow Up Appt Other [facility] Work Phone: Start: 05-20-2014 End: 05-20-2014 Electrocardiogram, complete EKG (In office) [facility] Work Phone: Start: 05-20-2014 End: 05-20-2014 Follow Up Appt Other Follow Up Appt Other [facility] Work Phone: Start: 01-21-2014 End: 01-21-2014 Follow Up Appt 6 months Follow Up Appt 6 months [facility] Work Phone: Start: 01-21-2014 End: 01-21-2014 PFM PFM [facility] Work Phone: Start: 01-21-2014 End: 01-21-2014 Follow Up Appt 6 months Follow Up Appt 6 months [facility] Work Phone: Start: 01-21-2014 End: 01-21-2014 PFM PFM [facility] Work Phone: Start: 12-01-2013 End: 01-27-2014 *Hepatic Function Panel *Hepatic Function Panel [facility] Work Phone: Start: 12-01-2013 End: 01-27-2014 Lipid panel [AGGREGATE] *Lipid Profile CC PCP [facility] Work Phone: Start: 12-01-2013 End: 01-27-2014 *Hepatic Function Panel *Hepatic Function Panel [facility] Work Phone: Start: 12-01-2013 End: 01-27-2014 Lipid panel [AGGREGATE] *Lipid Profile CC PCP [facility] Work Phone: Start: 09-26-2013 End: 12-01-2013 *Hepatic Function Panel *Hepatic Function Panel [facility] Work Phone: Start: 09-26-2013 End: 09-26-2013 Ecg routine ecg w/least 12 lds w/i&r EKG (In office) [facility] Work Phone: Start: 09-26-2013 End: 09-26-2013 Follow Up Appt 3 months Follow Up Appt 3 months [facility] Work Phone: Start: 09-26-2013 End: 02-02-2017 Follow Up Appt Other Follow Up Appt Other [facility] Work Phone: Start: 09-26-2013 End: 12-01-2013 Lipid panel [AGGREGATE] *Lipid Profile CC PCP [facility] Work Phone: Start: 09-26-2013 End: 09-26-2013 MMM MMM [facility] Work Phone: Start: 09-26-2013 End: 11-28-2013 Thyroid stimulating hormone (TSH) *TSH [facility] Work Phone: Start: 09-26-2013 End: 11-28-2013 Thyroxine (T4) *T4 (Total) [facility] Work Phone: Start: 09-26-2013 End: 12-01-2013 *Hepatic Function Panel *Hepatic Function Panel [facility] Work Phone: Start: 09-26-2013 End: 09-26-2013 Electrocardiogram, complete EKG (In office) [facility] Work Phone: Start: 09-26-2013 End: 09-26-2013 Follow Up Appt 3 months Follow Up Appt 3 months [facility] Work Phone: Start: 09-26-2013 End: 02-02-2017 Follow Up Appt Other Follow Up Appt Other [facility] Work Phone: Start: 09-26-2013 End: 12-01-2013 Lipid panel [AGGREGATE] *Lipid Profile CC PCP [facility] Work Phone: Start: 09-26-2013 End: 09-26-2013 MMM MMM [facility] Work Phone: Start: 09-26-2013 End: 11-28-2013 Thyroid stimulating hormone (TSH) *TSH [facility] Work Phone: Start: 09-26-2013 End: 11-28-2013 Thyroxine (T4) *T4 (Total) [facility] Work Phone: Start: 07-25-2013 End: 07-25-2013 Follow Up Appt Other Follow Up Appt Other [facility] Work Phone: Start: 07-25-2013 End: 07-25-2013 Follow Up Appt Other Follow Up Appt Other [facility] Work Phone: Start: 07-11-2013 End: 07-14-2013 Digoxin *Digoxin (Drug Assay) [facility] Work Phone: Start: 07-11-2013 End: 07-14-2013 Digoxin *Digoxin (Drug Assay) [facility] Work Phone: Start: 06-30-2013 End: 07-14-2013 *BMP *BMP [facility] Work Phone: Start: 06-30-2013 End: 07-14-2013 *BMP *BMP [facility] Work Phone: Start: 06-27-2013 End: 06-30-2013 Ecg routine ecg w/least 12 lds w/i&r EKG (In office) [facility] Work Phone: Start: 06-27-2013 End: 07-25-2013 Follow Up Appt 3 months Follow Up Appt 3 months [facility] Work Phone: Start: 06-27-2013 End: 07-25-2013 PFM PFM [facility] Work Phone: Start: 06-27-2013 End: 06-30-2013 Electrocardiogram, complete EKG (In office) [facility] Work Phone: Start: 06-27-2013 End: 07-25-2013 Follow Up Appt 3 months Follow Up Appt 3 months [facility] Work Phone: Start: 06-27-2013 End: 07-25-2013 PFM PFM [facility] Work Phone: Start: 06-23-2013 End: 06-30-2013 *BMP *BMP [facility] Work Phone: Start: 06-23-2013 End: 06-30-2013 Digoxin *Digoxin (Drug Assay) [facility] Work Phone: Start: 06-23-2013 End: 07-25-2013 INR Coag RelTime (PPP) *PT/INR [facility] Work Phone: Start: 06-23-2013 End: 06-30-2013 *BMP *BMP [facility] Work Phone: Start: 06-23-2013 End: 07-25-2013 Coagulation factor induced.INR assay in platelet poor plasma *PT/INR [facility] Work Phone: Start: 06-23-2013 End: 06-30-2013 Digoxin *Digoxin (Drug Assay) [facility] Work Phone: Start: 05-23-2013 End: 05-23-2013 *Hepatic Function Panel *Hepatic Function Panel [facility] Work Phone: Start: 05-23-2013 End: 05-23-2013 Thyroid stimulating hormone (TSH) *TSH [facility] Work Phone: Start: 05-23-2013 End: 05-23-2013 *Hepatic Function Panel *Hepatic Function Panel [facility] Work Phone: Start: 05-23-2013 End: 05-23-2013 Thyroid stimulating hormone (TSH) *TSH [facility] Work Phone: Start: 05-22-2013 End: 07-25-2013 Chest x-ray X-Ray, Chest, PA & Lateral [facility] Work Phone: Start: 05-22-2013 End: 05-23-2013 Pulmonary Fuction Test - complete Pulmonary Fuction Test - complete [facility] Work Phone: Start: 05-22-2013 End: 07-25-2013 Chest x-ray X-Ray, Chest, PA & Lateral [facility] Work Phone: Start: 05-22-2013 End: 05-23-2013 Pulmonary Fuction Test - complete Pulmonary Fuction Test - complete [facility] Work Phone: Start: 05-02-2013 End: 05-02-2013 Cardiovascular stress test using treadmill Treadmill stress test (no imaging) [facility] Work Phone: Start: 05-02-2013 End: 05-02-2013 Cardiovascular stress test using treadmill Treadmill stress test (no imaging) [facility] Work Phone: Start: 05-01-2013 End: 07-25-2013 Cardiac Rehab Cardiac Rehab [facility] Work Phone: Start: 05-01-2013 End: 07-25-2013 Cardiac Rehab Cardiac Rehab [facility] Work Phone: Start: 04-03-2013 End: 04-05-2013 *BMP *BMP [facility] Work Phone: Start: 04-03-2013 End: 04-05-2013 *CBC with Differential *CBC with Differential [facility] Work Phone: Start: 04-03-2013 End: 04-03-2013 24 hour holter monitor 24 hour holter monitor [facility] Work Phone: Start: 04-03-2013 End: 04-03-2013 Follow Up Appt 2 months Follow Up Appt 2 months [facility] Work Phone: Start: 04-03-2013 End: 04-03-2013 MMM MMM [facility] Work Phone: Start: 04-03-2013 End: 04-03-2013 Nuclear stress test -exercise Nuclear stress test -exercise [facility] Work Phone: Start: 04-03-2013 End: 05-01-2013 Thyroid stimulating hormone (TSH) *TSH [facility] Work Phone: Start: 04-03-2013 End: 04-05-2013 *BMP *BMP [facility] Work Phone: Start: 04-03-2013 End: 04-05-2013 *CBC with Differential *CBC with Differential [facility] Work Phone: Start: 04-03-2013 End: 04-03-2013 24 hour holter monitor 24 hour holter monitor [facility] Work Phone: Start: 04-03-2013 End: 04-03-2013 Follow Up Appt 2 months Follow Up Appt 2 months [facility] Work Phone: Start: 04-03-2013 End: 04-03-2013 MMM MMM [facility] Work Phone: Start: 04-03-2013 End: 04-03-2013 Nuclear stress test -exercise Nuclear stress test -exercise [facility] Work Phone: Start: 04-03-2013 End: 05-01-2013 Thyroid stimulating hormone (TSH) *TSH [facility] Work Phone: Start: 03-16-2013 End: 06-06-2013 *Hepatic Function Panel *Hepatic Function Panel [facility] Work Phone: Start: 03-16-2013 End: 06-06-2013 Lipid panel [AGGREGATE] *Lipid Profile CC PCP [facility] Work Phone: Start: 03-16-2013 End: 06-06-2013 *Hepatic Function Panel *Hepatic Function Panel [facility] Work Phone: Start: 03-16-2013 End: 06-06-2013 Lipid panel [AGGREGATE] *Lipid Profile CC PCP [facility] Work Phone: Start: 11-06-2012 End: 04-03-2013 *BMP *BMP [facility] Work Phone: Start: 11-06-2012 End: 04-03-2013 *CBC with Differential *CBC with Differential [facility] Work Phone: Start: 11-06-2012 End: 04-03-2013 *Hepatic Function Panel *Hepatic Function Panel [facility] Work Phone: Start: 11-06-2012 End: 04-03-2013 Lipid panel [AGGREGATE] *Lipid Profile [facility] Work Phone: Start: 11-06-2012 End: 04-03-2013 Magnesium *Magnesium [facility] Work Phone: Start: 11-06-2012 End: 04-03-2013 *BMP *BMP [facility] Work Phone: Start: 11-06-2012 End: 04-03-2013 *CBC with Differential *CBC with Differential [facility] Work Phone: Start: 11-06-2012 End: 04-03-2013 *Hepatic Function Panel *Hepatic Function Panel [facility] Work Phone: Start: 11-06-2012 End: 04-03-2013 Lipid panel [AGGREGATE] *Lipid Profile [facility] Work Phone: Start: 11-06-2012 End: 04-03-2013 Magnesium *Magnesium [facility] Work Phone: Start: 07-25-2012 End: 07-25-2012 Follow Up Appt 1 year Follow Up Appt 1 year [facility] Work Phone: Start: 07-25-2012 End: 07-25-2012 Follow Up Appt 1 year Follow Up Appt 1 year [facility] Work Phone: Start: 2012 Fall risk assessment Steadi Fall Risk Assessment [facility] Start: 2012 Pneumococcal vaccination PNEUMOCOCCAL VACCINE AGE 65+ (1 of 2 - PCV13) [facility] Start: 2012 US scan of abdominal aorta ABDOMINAL AORTIC ULTRASOUND [facility] Start: 04-17-2012 End: 04-29-2012 *BMP *BMP [facility] Work Phone: Start: 04-17-2012 End: 04-29-2012 *CBC with Differential *CBC with Differential [facility] Work Phone: Start: 04-17-2012 End: 04-29-2012 *Hepatic Function Panel *Hepatic Function Panel [facility] Work Phone: Start: 04-17-2012 End: 04-29-2012 Lipid panel [AGGREGATE] *Lipid Profile [facility] Work Phone: Start: 04-17-2012 End: 04-29-2012 Magnesium *Magnesium [facility] Work Phone: Start: 04-17-2012 End: 04-29-2012 *BMP *BMP [facility] Work Phone: Start: 04-17-2012 End: 04-29-2012 *CBC with Differential *CBC with Differential [facility] Work Phone: Start: 04-17-2012 End: 04-29-2012 *Hepatic Function Panel *Hepatic Function Panel [facility] Work Phone: Start: 04-17-2012 End: 04-29-2012 Lipid panel [AGGREGATE] *Lipid Profile [facility] Work Phone: Start: 04-17-2012 End: 04-29-2012 Magnesium *Magnesium [facility] Work Phone: Start: 01-19-2012 End: 01-19-2012 Ecg routine ecg w/least 12 lds w/i&r EKG (In office) [facility] Work Phone: Start: 01-19-2012 End: 01-19-2012 Follow Up Appt 6 months Follow Up Appt 6 months [facility] Work Phone: Start: 01-19-2012 End: 01-19-2012 Electrocardiogram, complete EKG (In office) [facility] Work Phone: Start: 01-19-2012 End: 01-19-2012 Follow Up Appt 6 months Follow Up Appt 6 months [facility] Work Phone: Start: 09-20-2011 End: 09-28-2011 *CBC with Differential *CBC with Differential [facility] Work Phone: Start: 09-20-2011 End: 09-28-2011 *Hepatic Function Panel *Hepatic Function Panel [facility] Work Phone: Start: 09-20-2011 End: 09-28-2011 Lipid panel [AGGREGATE] *Lipid Profile [facility] Work Phone: Start: 09-20-2011 End: 09-28-2011 *CBC with Differential *CBC with Differential [facility] Work Phone: Start: 09-20-2011 End: 09-28-2011 *Hepatic Function Panel *Hepatic Function Panel [facility] Work Phone: Start: 09-20-2011 End: 09-28-2011 Lipid panel [AGGREGATE] *Lipid Profile [facility] Work Phone: Start: 06-30-2011 End: 06-30-2011 Follow Up Appt 6 months Follow Up Appt 6 months [facility] Work Phone: Start: 06-30-2011 End: 06-30-2011 Follow Up Appt 6 months Follow Up Appt 6 months [facility] Work Phone: Start: 1997 Administration of herpes zoster vaccine ZOSTER VACCINES (1 of 2) [facility] Start: 1997 Screening for malignant neoplasm of colon [facility] Start: 1997 SHINGRIX VACCINE (1 of 2) SHINGRIX VACCINE (1 of 2) [facility] Start: 1992 COLOGUARD (FIT-DNA) COLOGUARD (FIT-DNA) [facility] Start: 1992 Colonoscopy COLONOSCOPY [facility] Start: 1992 COLORECTAL CANCER SCREENING COLORECTAL CANCER SCREENING [facility] Start: [address] COLONOGRAPHY [facility] Start: 1992 FECAL OCCULT BLOOD FECAL OCCULT BLOOD [facility] Start: 1992 SIGMOIDOSCOPY SIGMOIDOSCOPY [facility] Start: 1965 ANNUAL PCP TEAM CHRONIC DISEASE VISIT ANNUAL PCP TEAM CHRONIC DISEASE VISIT [facility] Start: 1965 BP CONTROLLED (<130/80) BP CONTROLLED (<130/80) [facility] Start: 1965 Hepatitis C antibody, confirmatory test Hepatitis C Screening [facility] Start: 1965 HEPATITIS C SCREENING HEPATITIS C SCREENING [facility] Start: 1963 COVID-19 Vaccine (1 of 2) COVID-19 Vaccine (1 of 2) [facility] Start: 1959 Adolescent depression screening assessment [facility] Start: 1957 3 comp foot exam completed DIABETIC FOOT EXAM [facility] Start: 1957 Hepatitis C antibody, confirmatory test DILATED RETINAL EXAM [facility] Start: 1950 History and physical examination, annual for health maintenance Wellness Visit [facility] Start: 1947 ABDOMINAL AORTIC ANEURYSM SCREENING ABDOMINAL AORTIC ANEURYSM SCREENING [facility] Start: 1947 Depression screening using PHQ-9 (Patient Health Questionnaire 9) score DEPRESSION SCREENING (PHQ9) [facility] Start: 1947 Fall risk assessment Falls Risk Assessment [facility] Start: 1947 Hepatitis C antibody, confirmatory test HEPATITIS C SCREENING [facility] Start: 1947 Prostate specific antigen measurement PSA Level [facility] Start: 1947 Screening for malignant neoplasm of colon Colorectal Cancer Screening: Colonoscopy [facility] Start: 1947 Tetanus vaccination TETANUS EVERY 10 YR [facility] Start: 1947 US scan of abdominal aorta Abdominal Aortic Ultrasound [facility] Patient Education [facility] Work Phone: [facility] Immunizations Immunization Date Immunization Notes Care Provider Fa clarissa 02-12-2023 pneumococcal (PCV20) vaccine, 20 valent (PREVNAR 20) Callum Lance MD Work Phone: [facility] Work Phone: 04-14-2022 influenza, injectabl e, quadrivalent, preservative free Callum Lance MD Work Phone: [facility] Work Phone: 11-27-2021 COVID-19 original vaccine, age 12+ yr, monovalent (PFIZER-BIONTECH - MARTINEZ TOP) Callum Lance MD Work Phone: [facility] Work Phone: 04-25-2021 COVID-19 original vaccine, age 12+ yr, monovalent (PFIZER-BIONTECH - PURPLE TOP) Callum Lance MD Work Phone: [facility] Work Phone: 09-22-2020 COVID-19 original vaccine, age 12+ yr, monovalent (PFIZER-BIONTECH - PURPLE TOP) Callum Lance MD Work Phone: [facility] Work Phone: 09-01-2020 COVID-19 original vaccine, age 12+ yr, monovalent (PFIZER-BIONTECH - PURPLE TOP) Callum Lance MD Work Phone: [facility] Work Phone: 07-16-2020 COVID-19 vaccine, fu ll dose (MODERNA) Callum Lance MD Work Phone: [facility] Work Phone: 04-09-2020 influenza, injectabl e, quadrivalent, preservative free Callum Lance MD Work Phone: [facility] Work Phone: 07-29-2019 tetanus toxoid, redu christian diphtheria toxoid, and acellular pertussis vaccine, adsorbed Callum Lance MD Work Phone: [facility] Work Phone: 04-22-2019 influenza, seasonal, injectable Callum Lance MD Work Phone: [facility] Work Phone: 04-17-2018 influenza, seasonal, injectable Callum Lance MD Work Phone: [facility] Work Phone: 04-03-2017 influenza, injectabl e, quadrivalent, contains preservative Callum Lance MD Work Phone: [facility] Work Phone: 04-07-2016 influenza, seasonal, injectable Callum Lance MD Work Phone: [facility] Work Phone: 10-06-2015 pneumococcal conjuga te vaccine, 13 valent Callum Lance MD Work Phone: [facility] Work Phone: 04-30-2015 influenza, seasonal, injectable Callum Lance MD Work Phone: [facility] Work Phone: 04-24-2014 influenza, seasonal, injectable Callum Lance MD Work Phone: [facility] Work Phone: 04-24-2014 pneumococcal polysaccharide vaccine, 23 valent Callum Lance MD Work Phone: [facility] Work Phone: Payers Date Payer Category Payer Medicare [id number] 2022 Unknown [id number] 2019 Medicare [id number] 2014 Medicare [employer] MANAGED M [employer] M[employer] ADVANTAGE CHOICE PPO xxxxxxxxx 2014-Present xxxxxxxxx [id number] 2014 Medicare [id number] 2014 Medicare [employer] MANAGED M [employer] MCR ADVANTAGE CHOICE PPO [id number] 2014-Present [id number] 1947 Unknown [id number] 1947 Unknown [id number] 1947 Unknown [id number] 1947 Unknown [id number] 1947 Unknown [id number] 1947 Unknown [id number] Social History Date Type Detail Facility Start: 09-30-2018 End: 02-16-2023 Tobacco smoking status NHIS Former smoker [facility] Work Phone: Start: 07-16-1964 End: 03-09-2014 History of tobacco use Current smoker [facility] Start: 1945 Sex Assigned At Not on file [facility] Start: 03-03-2019 End: 02-16-2023 Alcohol intake Current non-drinker of alcohol (finding) [facility] Start: 11-03-2019 End: 02-16-2023 Tobacco use and exposure Never used [facility] Start: 02-06-2022 End: 02-16-2022 Exposure to SARS-CoV-2 (event) Not sure [facility] Start: 07-16-1964 End: 01-03-1992 History of tobacco use Pipe Smoker [facility] Work Phone: Start: 06-22-2020 End: 02-16-2023 History of Social function [facility] Start: 06-22-2020 End: 02-16-2023 Tobacco use panel [facility] PHQ2 Score [facility] Start: 02-16-2023 Tobacco Comment smoked a pipe until 1991 [facility] Medical Equipment Procedure Code Equipment Code Equipment Origin al Text Equipment Identifier Dates [id number] Implant - [id number] Start: 02-28-2018 Progress note 02-16-2023 Note Date & Type Note Facility 02-16-2023 Note HNO ID: [id number] Author: Callum Lance MD Service: ? Author Type: Physician Type: Progress Notes Filed: 02/16/2023 1:25 PM Note Text: PRIMARY CARE PHYSICIAN: Keiry Wright (Yousif) [address] [place] [address] [address] [place] [address] Patient Care Team: Keiry Wright MD as PCP - General (Family Medicine) Nicolas Sun DO as Specialty Reticle Printer (Endocrinology) Debbie Gomes as Specialty Reticle Printer (Orthopedics) Dao Manzo MD as Specialty Reticle Printer (Urology) Callum Lance MD as Specialty Reticle Printer (Cardiology) Donaldo Gong as Specialty Reticle Printer (Internal Medicine) Osmin Bundy MD as Specialty Reticle Printer (Cardiology) CHIEF COMPLAINT: Follow-up for arrhythmia HISTORY OF PRESENT ILLNESS: Mr. Joseph Hicks is a 77 year old male who presents today for a cardiovascular medicine follow-up visit. History copied from previous notes, edited as needed: Dr. Lance's previous notes 11/2019: Mr. Ruiz is a 74 year old male who presents today via virtual video encounter for evaluation of atrial fibrillation. He has a long history of heart disease including coronary artery disease, underwent coronary artery bypass surgery in February 2018. Prior to that he had undergone angioplasty with stent placement to the distal right coronary artery in April 2013. Importantly, at the time of coronary artery bypass surgery he also had Atricure closure of left atrial appendage. He has a very long history of atrial arrhythmias including atrial fibrillation and atrial flutter. It seems that the atrial arrhythmias began in about 2005. He underwent electrical cardioversion for atrial fibrillation in 10/2005, and then was treated with sotalol, but this antiarrhythmic drug failed to control the atrial fibrillation. He was then changed to flecainide in about November 2005. He then developed typical right atrial flutter that was thought to be facilitated by the flecainide. He therefore underwent catheter ablation of the typical right atrial flutter circuit 12/01/2005 at [facility]. However, the atrial fibrillation recurred and was symptomatic. He experienced bothersome symptoms including fatigue, exertional shortness of breath, effort intolerance. The flecainide was discontinued, due to in efficacy and also because he did not tolerate it well. He states the flecainide made him feel terrible. He was then treated with propafenone (Rythmol) but this was ineffective. He underwent atrial fibrillation catheter ablation in March 2009 at [facility], performed by Dr. Corrales. Mr. Ruiz states that he did okay for a while after the ablation procedure, although he had recurrence of atrial fibrillation sometime in 2009. He recalls being treated with an antiarrhythmic drug at that time, he believes amiodarone. He thinks he might have had electrical cardioversion at about this time. He states that he did well with amiodarone and lisinopril for a number of years. However, his park manager was concerned about potential amiodarone pulmonary toxicity, so the amiodarone was discontinued about 4 years ago in 2015 although Mr. Ruiz is not entirely certain of that date. He states that he did not experience much atrial fibrillation over the next few years, and only experienced the substantial amount of atrial fibrillation after the coronary artery bypass surgery in 2017. He underwent successful electrical cardioversion at the end of July 2018. However, the atrial fibrillation recurred within about a day or two. He experiences symptoms with the atrial fibrillation, including fatigue, feeling out of breath with activity (exertional dyspnea). He states that a recent ambulatory monitor that he wore for 24 hours showed that he was in atrial fibrillation 100% of the time. He states compliance with prescribed CPAP therapy for sleep apnea. He states that he was treated with digoxin at one point, but it wasn't very effective. Treatment with a beta sania medication metoprolol resulted in side effect of fatigue, tiredness. He believes that he feels better in sinus rhythm and would like to be considered for whatever treatments could help him. Of note, he did try to schedule appointment with me last year but I was not within his insurance network. He did go to [facility] in [place] and was evaluated by one of their EP physicians, Dr. Bartholomew. Mr. Ruiz does not want to follow up in [place] however, even though he liked Dr. Bartholomew, he would prefer to come to [facility] which was his intention in the first place. IMPRESSION (11/2019): Mr. Ruiz has recurrent symptomatic nonvalvular persistent atrial fibrillation that has been recurrent despite several different antiarrhythmic drugs over the years, and also electrical cardioversion procedures and catheter ablation procedures including for atrial flut (more content not included)... [facility] History of Present illness Narrative 02-16-2023 Callum Lance MD - 02/16/2023 1:00 PM EDT Note Date & Type Note Facility 02-16-2023 History of Presen t illness Narrative PRIMARY CARE PHYSICIAN: Keiry Wright (Yousif) [address] [facility] [place] [address] [id number] Patient Care Team: Keiry Wright MD as PCP - General (Family Medicine) Nicolas Sun DO as Specialty Reticle Printer (Endocrinology) Debbie Gomes as Specialty Reticle Printer (Orthopedics) Dao Manzo MD as Specialty Reticle Printer (Urology) Callum Lance MD as Specialty Reticle Printer (Cardiology) Donaldo Gong as Specialty Reticle Printer (Internal Medicine) Osmin Bundy MD as Specialty Reticle Printer (Cardiology) CHIEF COMPLAINT: Follow-up for arrhythmia HISTORY OF PRESENT ILLNESS: Mr. Joseph Hicks is a 77 year old male who presents today for a cardiovascular medicine follow-up visit. History copied from previous notes, edited as needed: Dr. Lance's previous notes 11/2019: Mr. Ruiz is a 74 year old male who presents today via virtual video encounter for evaluation of atrial fibrillation. He has a long history of heart disease including coronary artery disease, underwent coronary artery bypass surgery in February 2018. Prior to that he had undergone angioplasty with stent placement to the distal right coronary artery in April 2013. Importantly, at the time of coronary artery bypass surgery he also had Atricure closure of left atrial appendage. He has a very long history of atrial arrhythmias including atrial fibrillation and atrial flutter. It seems that the atrial arrhythmias began in about 2005. He underwent electrical cardioversion for atrial fibrillation in 10/2005, and then was treated with sotalol, but this antiarrhythmic drug failed to control the atrial fibrillation. He was then changed to flecainide in about November 2005. He then developed typical right atrial flutter that was thought to be facilitated by the flecainide. He therefore underwent catheter ablation of the typical right atrial flutter circuit 12/01/2005 at [facility]. However, the atrial fibrillation recurred and was symptomatic. He experienced bothersome symptoms including fatigue, exertional shortness of breath, effort intolerance. The flecainide was discontinued, due to in efficacy and also because he did not tolerate it well. He states the flecainide made him feel terrible. He was then treated with propafenone (Rythmol) but this was ineffective. He underwent atrial fibrillation catheter ablation in March 2009 at [facility], performed by Dr. Corrales. Mr. Ruiz states that he did okay for a while after the ablation procedure, although he had recurrence of atrial fibrillation sometime in 2009. He recalls being treated with an antiarrhythmic drug at that time, he believes amiodarone. He thinks he might have had electrical cardioversion at about this time. He states that he did well with amiodarone and lisinopril for a number of years. However, his park manager was concerned about potential amiodarone pulmonary toxicity, so the amiodarone was discontinued about 4 years ago in 2016 although Mr. Ruiz is not entirely certain of that date. He states that he did not experience much atrial fibrillation over the next few years, and only experienced the substantial amount of atrial fibrillation after the coronary artery bypass surgery in 2018. He underwent successful electrical cardioversion at the end of July 2018. However, the atrial fibrillation recurred within about a day or two. He experiences symptoms with the atrial fibrillation, including fatigue, feeling out of breath with activity (exertional dyspnea). He states that a recent ambulatory monitor that he wore for 24 hours showed that he was in atrial fibrillation 100% of the time. He states compliance with prescribed CPAP therapy for sleep apnea. He states that he was treated with digoxin at one point, but it wasn't very effective. Treatment with a beta sania medication metoprolol resulted in side effect of fatigue, tiredness. He believes that he feels better in sinus rhythm and would like to be considered for whatever treatments could help him. Of note, he did try to schedule appointment with me last year but I was not within his insurance network. He did go to [facility] in [place] and was evaluated by one of their EP physicians, Dr. Bartholomew. Mr. Ruiz does not want to follow up in [place] however, even though he liked Dr. Bartholomew, he would prefer to come to [facility] which was his intention in the first place. IMPRESSION (11/2019): Mr. Ruiz has recurrent symptomatic nonvalvular persistent atrial fibrillation that has been recurrent despite several different antiarrhythmic drugs over the years, and also electrical cardioversion procedures and catheter ablation procedures including for atrial flutter and atrial fibrillation. The arrhythmia is associated with excessively bothersome symptoms. Therefore, a rhythm control approach still seems to be desirable to control excessively bothersome symptoms. I am not optimistic about any of the available antiarrhythmic drugs that have not already been tried to be effective now or to be tolerated. He has not been treated with the class III antiarrhythmic drug dofetilide but I am not optimistic about this drug been ineffective with the failure of amiodarone, and also I would like to avoid dofetilide at his age with him having at least some degree of kidney dysfunction. It seems best that this point to abandon antiarrhythmic drug therapy and consider the nonmedication options. This would include redo atrial fibrillation catheter ablation or AV node catheter ablation with placement of a permanent pacemaker. I had a prolonged and detailed discussion with Mr. Ruiz regarding the treatment options, particularly the 2 types of procedures outlined above involving catheter ablation. He is a reasonable candidate for atrial fibrillation catheter ablation, with probably favorable risk to benefit. I would like to see a repeat echocardiogram, as the presence of severe left atrial enlargement would temper my enthusiasm for the ability to maintain sinus rhythm by any means even with catheter ablation. He had moderate left atrial enlargement by echocardiogram in November 2017, which is the last echocardiogram that I can find in his available medical records. He would also be an appropriate candidate for AV node catheter ablation with pacemaker implantation, particularly if we feel that he is either not a candidate for atrial fibrillation catheter ablation or that the procedure would be futile. I had a detailed discussion with Mr. Ruiz and his regarding my evaluation and recommendations. After our discussion, Mr. Ruiz expressed his understanding and I answered all his questions to his apparent satisfaction. He would like to proceed with whichever procedure I consider recommended. I am in favor of making another attempt at atrial fibrillation catheter ablation. I would like for him to have a repeat echocardiogram. I will contact his ground school instructor, Dr. Dahl, to have an echocardiogram performed, unless one has been performed in the last 6 months or so then this report can be faxed to me for my review. PLAN AND RECOMMENDATIONS (11/2019): 1) Continue with current plan of care from EP standpoint. 2) Have echocardiogram performed to update ventricular function, valves and importantly, left atrial dimensions 3) Proceed with scheduling of atrial fibrillation catheter ablation, although with restrictions from [facility] due to COVID-19 pandemic and his ability to perform ADLs we will need to wait awhile until this type of procedure can be performed electively 4) If he is determined by new information (such as echocardiogram) not to be suitable for atrial fibrillation catheter ablation, or if such a procedure is performed and fails, he might do well with AV node catheter ablation with pacemaker implantation History and physical day of procedure Cinthia Warner CNP 02/23/2020: Mr. Ruiz is a 74 year old male who presents for elective electrophysiology study with radiofrequency catheter ablation of symptomatic persistent atrial fibrillation. He has a history of coronary artery disease, underwent CABG in February/2018. Prior to that he had undergone angioplasty with stent placement to the distal right coronary artery in April/2013. At the time of CABG he also had Atricure closure of left atrial appendage. He has a long history of atrial arrhythmias, including atrial fibrillation and atrial flutter, beginning in about 2005. He underwent electrical cardioversion for atrial fibrillation in 10/2005 and was treated with sotalol, but the antiarrhythmic drug failed to control the atrial fibrillation. He was then changed to flecainide therapy in about November/2005. He then developed typical right atrial flutter and was thought to be facilitated by the flecainide. Subsequently he underwent catheter ablation of typical right atrial flutter 12/01/2005 at [facility]. However, the atrial fibrillation recurred and was symptomatic. He experience bothersome symptoms including fatigue, exertional shortness of breath, effort intolerance. The flecainide was discontinued, due to inefficacy and also because he did not tolerate it well, stated the flecainide made him feel terrible. He was then treated with Rythmol, but this was ineffective. He underwent atrial fibrillation catheter ablation in March/2900 [facility], performed by Dr. Corrales. The patient reports he did well following the ablation procedure, although he had recurrence of atrial fibrillation sometime in 2009. He believes he was treated with antiarrhythmic drug at that time, believes it was amiodarone, and may have had electrical cardioversion about that time. He was treated with amiodarone and lisinopril for a number of years, however his park manager was concerned about potential amiodarone pulmonary toxicity, so the amiodarone was discontinued in 2015. He did not experience much atrial fibrillation over the next few years, and only experiences substantial amount of atrial fibrillation after the CABG in 2017. He underwent successful electrical cardioversion at the end of July/2018, however the atrial fibrillation recurred within a day or 2. He experiences symptoms with the atrial fibrillation, including fatigue, feeling out of breath with activity (exertional dyspnea). He also wore a 24-Hour Holter monitor which demonstrated atrial fibrillation 100% of the time. He has sleep apnea, reports compliance with CPAP therapy. He states he was previously scheduled for atrial fibrillation ablation, but his INRs were not therapeutic. Today his INR is 2.04, his INR is monitored by his ground school instructor, Dr. Dahl. He denies coughing, wheezing, fever or chills, COVID-19 test on 02/21/20 was negative. He denies issues with anesthesia. He continues to have shortness of breath with activity and fatigue, denies chest discomfort or palpitations. He is ready to proceed with scheduled atrial fibrillation ablation with Dr. Lance. Interval History Cinthia Warner ELECTRONIC SCALE SUBASSEMBLER 05/12/2020: The patient underwent radiofrequency catheter ablation of symptomatic persistent atrial fibrillation on 02/23/[address] Lance. The patient reports he has been well since the ablation procedure, states he healed well and has felt less short of breath since the procedure, he is pleased with his results. He denies recurrence of atrial arrhythmia. He did inquire if he needs to continue taking Coumadin, I have informed him from our standpoint we recommend he stay on anticoagulation due to [id number] score of 3 and stroke prevention. He is accompanied by his . He denies chest discomfort, palpitations, shortness of breath, lightheadedness, dizziness, near-syncope or syncope. He does admit to sleep apnea, reports compliance with CPAP machine. Interim History Dr. Lance 08/16/2020: Mr. Ruiz presents for follow-up evaluation. He states that he has been doing very well. He has not been very much aware of having any substantial recurrences of arrhythmia. He exercises regularly and is not limited in his activities. He denies chest pain, shortness of breath, orthopnea, palpitations, PND, lightheadedness or syncope. Interval History 02/14/2021 Cinthia Warner ECHOCARDIOGRAPH TECHNICIAN: The patient reports he has been well since last seen by Dr. Lance in August. He does admit to occasional fatigue, continues to take metoprolol tartrate 25 mg twice daily, I have asked that he discuss with Dr. Dahl if the dose can be reduced, he is due to follow up the end of this year. EKG today shows marked sinus bradycardia, 49 bpm, patient denies chest discomfort, shortness of breath, lightheadedness, dizziness, near-syncope or syncope. He denies recurrence of atrial arrhythmia, denies palpitations. He does have sleep apnea, reports compliance with CPAP therapy. Interim History Dr. Lance 02/16/2022: Mr. Ruiz presents for follow-up evaluation for arrhythmia. Overall from the heart rhythm standpoint he has been doing reasonably well. He had recently cut the metoprolol dosage in half, but then he experienced palpitations so he increase the dose back to the previous dosage. He states he is being evaluated for possible pulmonary disease, has an appointment with a new park manager soon. He denies chest pain, shortness of breath, orthopnea, palpitations, lightheadedness or syncope. Interim History Dr. Lance 02/16/2023: Mr. Ruiz Jr presents for follow-up evaluation for arrhythmia. He states he has been doing well, not aware of much of any recurrent arrhythmia. He denies chest pain, orthopnea, palpitations, lightheadedness or syncope. He states that he only occasionally has some shortness of breath with activity otherwise not limited. I have confirmed and edited as necessary, the PFSH and ROS obtained by others. 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; amiodarone therapy was from about 2009 to about 2015 Anticoagulant long-term use warfarin; indication: stroke prevention atrial fibrillation; also had TOM clipped (Atricure clip) at time of CABG 02/2018 At risk for stroke [id number] = 3 (HTN, age, CAD) Atherosclerotic heart disease Beta-sania intolerance fatigue with metoprolol CAD (coronary artery disease) CAD s/p PCI/stent distal RCA; s/p CABG 02/2018 Essential hypertension, benign Goiter, unspecified History of atrial flutter probably facilitated by Class IC antiarrhythmic drug flecainide; s/p typical right atrial flutter circuit (cavotricuspid isthmus) catheter ablation 11/2005 Hyperlipidemia Hyperthyroid Murmur 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 Obstructive sleep apnea states compliance with prescribed CPAP therapy Persistent atrial fibrillation (HCC) 2005 symptomatic; diagnosed 2005; antiarrhythmic drug therapy failed (sotalol, flecainide, propafenone, amiodarone); underwent typical right atrial flutter ablation 11/2005; underwent AF catheter ablation ([facility]) 03/2009; recurrent AF 2009 s/p cardioversion, amiodarone therapy; amiodarone pulmonary toxicity about 2015; postop after CABG 2017, underwent cardioversion 07/2018 with recurrent AF soon after Presence of coronary angioplasty implant and graft Pulmonary fibrosis (HCC) Pure hypercholesterolemia SOB (shortness of breath) Status post catheter ablation of atrial fibrillation 03/18/2009 AF catheter ablation/PVAI (RF) at [facility] Dr. Corrales 03/2009; redo AF catheter ablation/PVAI (RF) 02/23/[address] Lance Status post catheter ablation of atrial flutter 12/01/2005 typical right atrial flutter circuit (cavotricuspid isthmus) RF catheter ablation 12/01/2005; Dr. Vickie Wilcox Status post ligation of left atrial appendage Atricure clip of TOM at time of CABG 02/2018 PAST SURGICAL HISTORY Procedure Laterality Date AFIB ABLATION/PULM VEIN ISOLATION 03/18/2009 AF catheter ablation/PVAI (RF) at [facility] Dr. Corrales AFIB ABLATION/PULM VEIN ISOLATION 02/23/2020 redo AF catheter ablation/PVAI; [facility] Dr. Lance ARTHRP KNE CONDYLE&PLATU MEDIAL&LAT COMPARTMENTS Bilateral 2013 Knee replacement, total 2012 2013 CABG (3) VEIN GRAFTS & ARTERIAL GRAFT(S) 02/28/2018 CABG x 3 vessels: JUAREZ-LAD, SVG-OM, SVG-PDA; also with TOM clip (Atricure) CARDIAC CATH 12/10/2017 CARDIAC STRESS TEST 04/23/2018 CARDIOVERSION ELECTIVE ARRHYTHMIA INTERNAL SPX 10/2005 CARDIOVERSION ELECTIVE ARRHYTHMIA INTERNAL SPX 08/13/2018 successful religious of sinus rhythm; but atrial fibrillation recurred within about one day E[facility] 12/27/2017 LVEF 65%; moderate LAE ECHOCARDIOGRAM 12/07/2017 normal LV systolic fxn; LVEF 60%; moderate LAE ECHOCARDIOGRAM 12/16/2019 [facility]; see scanned document ECHOCARDIOGRAM 05/06/2020 ELBOW SURGERY HX Right 07/2019 EPS: SVT ABLATION 12/01/2005 typical right atrial flutter circuit (cavotricuspid isthmus) RF catheter ablation; Dr. Vickie Wilcox HOLTER MONITOR 24 HRS 11/2019 patient states it showed persistent atrial fibrillation INSERT INTRACORONARY STENT 04/2013 PCI/stent to distal RCA NEUROPLASTY &/TRANSPOS MEDIAN NRV CARPAL TUNNE Right 07/04/2005 REMV CATARACT EXTRACAP,INSERT LENS 2020 STRESS TEST NUCLEAR 12/01/2017 THORACENTESIS Left 03/08/2018 THYROIDECTOMY SUBTOTAL/PARTIAL 11/17/2002 right thyroid lobectomy SOCIAL HISTORY Social History Tobacco Use Smoking status: Former Types: Pipe Start date: 1964 Quit date: 01/03/1992 Years since quittin.1 Smokeless tobacco: Never Tobacco comments: smoked a pipe until 1991 Vaping Use Vaping Use: Never used Substance Use Topics Alcohol use: No Drug use: No FAMILY HISTORY Problem Relation Age of Onset Diabetes Mother Heart Attack Mother 70 in her sleep Heart disease Mother Heart Attack Father 66 in his sleep Heart disease Father Asthma Sister from ASA allergy ALLERGIES: ALLERGIES Allergen Reactions Amiodarone (Bulk) Shortness of Breath Possibly pulmonary fibrosis Beta Blockers [Beta* Other: See Comments Fatigue with metoprolol Grass Pollen Other: See Comments Ragweed Other: See Comments Negohop-Sod-Tfx Red* Myalgia Trees Other: See Comments MEDICATIONS: fexofenadine (KING) 180 mg tablet Take 180 mg by mouth once daily as needed (allergy symptoms). lisinopril (ZESTRIL, PRINIVIL) 10 mg tablet Take 5 mg by mouth once daily. omeprazole (PRILOSEC) 40 mg capsule Take 40 mg by mouth once daily. warfarin (COUMADIN) 6 mg tablet ascorbic acid, vitamin C, (VITAMIN C) 500 mg tablet Take 500 mg by mouth once daily. albuterol HFA (PROVENTIL HFA, VENTOLIN HFA) 90 mcg/actuation inhaler INHALE 2 PUFFS BY MOUTH EVERY 4 HOURS NEEDED FOR COUGH OR SHORTNESS OF BREATH fluticasone (FLONASE) 50 mcg/actuation nasal spray USE 1 SPRAY IN EACH NOSTRIL ONCE DAILY IN THE MORNING (FOR AT LEAST ONE MONTH) warfarin (COUMADIN) 5 mg tablet Take 5 mg by mouth as directed. 6 mg daily except Sunday 8 mg warfarin (COUMADIN) 1 mg tablet Take 1 mg by mouth as directed. metoprolol tartrate, short acting, (LOPRESSOR) 25 mg tablet Take 25 mg by mouth twice daily. tamsulosin ER (FLOMAX) 0.4 mg cap Take 0.4 mg by mouth once daily. warfarin (COUMADIN) 2 mg tablet Take 2 mg by mouth as directed. dose dependent on INR pravastatin (PRAVACHOL) 40 mg tablet Take 1 tablet by mouth daily at bedtime. magnesium oxide (MAG-OX) 400 mg tablet Take by mouth once daily. hydroCHLOROthiazide (HYDRODIURIL, ESIDRIX) 25 mg tablet Take 25 mg by mouth once daily. aspirin(ECOTRIN LOW STRENGTH 81 MG TAB) Take 81 mg by mouth once daily. Review of Systems Constitutional: Negative for chills and fever. Respiratory: Positive for shortness of breath (sometimes exertional). Negative for cough, hemoptysis, sputum production and wheezing. Cardiovascular: Negative for chest pain, palpitations, orthopnea, leg swelling and PND. Gastrointestinal: Negative for abdominal pain, blood in stool, melena, nausea and vomiting. Genitourinary: Negative for hematuria. Musculoskeletal: Negative for falls. Skin: Negative for rash. Neurological: Negative for dizziness, focal weakness, seizures and loss of consciousness. PHYSICAL EXAMINATION: BP 122/70 Pulse 55 Ht 5' 10 (1.78m) Wt 233 lb (105.7kg) SpO2 96% BMI 33.43 kg/(m^2). Physical Exam Vitals reviewed. Constitutional: General: He is not in acute distress. Appearance: Normal appearance. HENT: Head: Normocephalic and atraumatic. Cardiovascular: Rate and Rhythm: Regular rhythm. Bradycardia present. Heart sounds: Normal heart sounds, S1 normal and S2 normal. No murmur heard. No friction rub. Pulmonary: Effort: Pulmonary effort is normal. No respiratory distress. Breath sounds: Normal breath sounds. No wheezing, rhonchi or rales. Musculoskeletal: Cervical back: Neck supple. Right lower leg: No edema. Left lower leg: No edema. Skin: General: Skin is warm and dry. Neurological: General: No focal deficit present. Mental Status: He is alert and oriented to person, place, and time. Psychiatric: Mood and Affect: Mood normal. Behavior: Behavior normal. Thought Content: Thought content normal. CARDIOVASCULAR MEDICINE TESTING: Electrocardiogram: Sinus bradycardia 52 bpm; first-degree AV block (LA 216 normal QRS duration 106 ms; QTc 392 ms I have personally reviewed the Electrocardiogram. I spent a total of 30 minutes on the date of the service which included preparing to see the patient, [id number] patient care, completing clinical documentation, obtaining and/or reviewing separately obtained history, performing a medically appropriate examination, counseling and educating the patient/family/caregiver, ordering medications, tests, or procedures, communicating with other HCPs (not separately reported), independently interpreting results (not separately reported), communicating results to the patient/family/caregiver, and care coordination (not separately reported). ASSESSMENT/PLAN: 1. Persistent atrial fibrillation (HCC) - ICD9: 427.31, ICD10: I48.19 (primary diagnosis) 2. Status post catheter ablation of atrial fibrillation - ICD9: V45.89, ICD10: Z98.890 3. Atrial flutter, unspecified type (HCC) - ICD9: 427.32, ICD10: I48.92 4. Status post catheter ablation of atrial flutter - ICD9: V45.89, ICD10: Z98.890 5. Coronary arteriosclerosis in [facility] [place] artery - ICD9: 414.01, ICD10: I25.10 6. Presence of aortocoronary bypass graft - ICD9: V45.81, ICD10: Z95.1 7. S/P CABG x 3 - ICD9: V45.81, ICD10: Z95.1 8. Status post ligation of left atrial appendage - ICD9: V45.89, ICD10: Z98.890 9. At risk for stroke - ICD9: V15.89, ICD10: Z91.89 10. Anticoagulant long-term use - ICD9: V58.61, ICD10: Z79.01 CHADS2-Vasc Score Breakdown 5 Total Score 2 Age >= 75 years old 1 History of hypertension 1 History of diabetes mellitus 1 History of vascular disease IMPRESSION: Mr. Joseph Hicks seems to be stable, doing well with regards to arrhythmia. No active issues at the present time. He has been treated with oral anticoagulation therapy for stroke prevention from atrial fibrillation, and the risk of benefit of this treatment still seems to be favorable. He is establishing care with a new general ground school instructor in the [facility], as Dr. Dahl has left that practice. PLAN AND RECOMMENDATIONS: Continue with current plan of care from EP standpoint. Return in about 1 year (around 02/17/2024) for Dr. Lance, [place] office. Callum Lance MD 02/16/2023 Medical Decision Making: Problems: Moderate: 2+ stable chronic illnesses Data: Unique source(s) for external note(s) reviewed: 1 Unique test result(s) reviewed: 2 Unique test(s) ordered: 1 Risk: Moderate: Moderate risk from testing/treatment and Drug management Medical Decision Making Level: 4 - Moderate documented in this encounter [facility] Nurse Note 02-16-2023 Brandie Helton MA - 02/16/2023 12:55 PM EDT Note Date & Type Note Facility 02-16-2023 Nurse Note Patient has no cardiac complaints today. Brandie Helton CMA documented in this encounter [facility] Nurse Note 02-16-2022 Latoya Saldivar MA - 02/16/2022 3:01 PM EDT Note Date & Type Note Facility 02-16-2022 Nurse Note Patient denies any cardiac concerns or symptoms. documented in this encounter [facility] History of Present illness Narrative 02-16-2022 Callum Lance MD - 02/16/2022 3:00 PM EDT Note Date & Type Note Facility 02-16-2022 History of Presen t illness Narrative PRIMARY CARE PHYSICIAN: Keiry Wright MD ([facility]) [address] [place] [address] Patient Care Team: Keiry Wright MD as PCP - General (Family Practice) Jason Dahl (Cardiology) Nicolas Sun DO as Specialty Reticle Printer (Endocrinology) Debbie Gomes as Specialty Reticle Printer (Orthopedics) Dao Manzo as Specialty Reticle Printer (Urology) Callum Lance MD as Specialty Reticle Printer (Cardiology) Donaldo Gong as Specialty Reticle Printer (Internal Medicine) CHIEF COMPLAINT: Follow-up for arrhythmia, atrial fibrillation HISTORY OF PRESENT ILLNESS: Mr. Ruiz is a 76 year old male who presents today for a cardiovascular medicine follow-up visit. History copied from previous notes, edited as needed: Dr. Lance's previous notes 11/2019: Mr. Ruiz is a 74 year old male who presents today via virtual video encounter for evaluation of atrial fibrillation. He has a long history of heart disease including coronary artery disease, underwent coronary artery bypass surgery in February 2018. Prior to that he had undergone angioplasty with stent placement to the distal right coronary artery in April 2013. Importantly, at the time of coronary artery bypass surgery he also had Atricure closure of left atrial appendage. He has a very long history of atrial arrhythmias including atrial fibrillation and atrial flutter. It seems that the atrial arrhythmias began in about 2005. He underwent electrical cardioversion for atrial fibrillation in 10/2005, and then was treated with sotalol, but this antiarrhythmic drug failed to control the atrial fibrillation. He was then changed to flecainide in about November 2005. He then developed typical right atrial flutter that was thought to be facilitated by the flecainide. He therefore underwent catheter ablation of the typical right atrial flutter circuit 12/01/2005 at [facility]. However, the atrial fibrillation recurred and was symptomatic. He experienced bothersome symptoms including fatigue, exertional shortness of breath, effort intolerance. The flecainide was discontinued, due to in efficacy and also because he did not tolerate it well. He states the flecainide made him feel terrible. He was then treated with propafenone (Rythmol) but this was ineffective. He underwent atrial fibrillation catheter ablation in March 2009 at [facility], performed by Dr. Corrales. Mr. Ruiz states that he did okay for a while after the ablation procedure, although he had recurrence of atrial fibrillation sometime in 2009. He recalls being treated with an antiarrhythmic drug at that time, he believes amiodarone. He thinks he might have had electrical cardioversion at about this time. He states that he did well with amiodarone and lisinopril for a number of years. However, his park manager was concerned about potential amiodarone pulmonary toxicity, so the amiodarone was discontinued about 4 years ago in 2015 although Mr. Ruiz is not entirely certain of that date. He states that he did not experience much atrial fibrillation over the next few years, and only experienced the substantial amount of atrial fibrillation after the coronary artery bypass surgery in 2018. He underwent successful electrical cardioversion at the end of July 2018. However, the atrial fibrillation recurred within about a day or two. He experiences symptoms with the atrial fibrillation, including fatigue, feeling out of breath with activity (exertional dyspnea). He states that a recent ambulatory monitor that he wore for 24 hours showed that he was in atrial fibrillation 100% of the time. He states compliance with prescribed CPAP therapy for sleep apnea. He states that he was treated with digoxin at one point, but it wasn't very effective. Treatment with a beta sania medication metoprolol resulted in side effect of fatigue, tiredness. He believes that he feels better in sinus rhythm and would like to be considered for whatever treatments could help him. Of note, he did try to schedule appointment with me last year but I was not within his insurance network. He did go to [facility] in [place] and was evaluated by one of their EP physicians, Dr. Bartholomew. Mr. Ruiz does not want to follow up in [place] however, even though he liked Dr. Bartholomew, he would prefer to come to [facility] which was his intention in the first place. IMPRESSION (11/2019): Mr. Ruiz has recurrent symptomatic nonvalvular persistent atrial fibrillation that has been recurrent despite several different antiarrhythmic drugs over the years, and also electrical cardioversion procedures and catheter ablation procedures including for atrial flutter and atrial fibrillation. The arrhythmia is associated with excessively bothersome symptoms. Therefore, a rhythm control approach still seems to be desirable to control excessively bothersome symptoms. I am not optimistic about any of the available antiarrhythmic drugs that have not already been tried to be effective now or to be tolerated. He has not been treated with the class III antiarrhythmic drug dofetilide but I am not optimistic about this drug been ineffective with the failure of amiodarone, and also I would like to avoid dofetilide at his age with him having at least some degree of kidney dysfunction. It seems best that this point to abandon antiarrhythmic drug therapy and consider the nonmedication options. This would include redo atrial fibrillation catheter ablation or AV node catheter ablation with placement of a permanent pacemaker. I had a prolonged and detailed discussion with Mr. Ruiz regarding the treatment options, particularly the 2 types of procedures outlined above involving catheter ablation. He is a reasonable candidate for atrial fibrillation catheter ablation, with probably favorable risk to benefit. I would like to see a repeat echocardiogram, as the presence of severe left atrial enlargement would temper my enthusiasm for the ability to maintain sinus rhythm by any means even with catheter ablation. He had moderate left atrial enlargement by echocardiogram in November 2017, which is the last echocardiogram that I can find in his available medical records. He would also be an appropriate candidate for AV node catheter ablation with pacemaker implantation, particularly if we feel that he is either not a candidate for atrial fibrillation catheter ablation or that the procedure would be futile. I had a detailed discussion with Mr. Ruiz and his regarding my evaluation and recommendations. After our discussion, Mr. Ruiz expressed his understanding and I answered all his questions to his apparent satisfaction. He would like to proceed with whichever procedure I consider recommended. I am in favor of making another attempt at atrial fibrillation catheter ablation. I would like for him to have a repeat echocardiogram. I will contact his ground school instructor, Dr. Dahl, to have an echocardiogram performed, unless one has been performed in the last 6 months or so then this report can be faxed to me for my review. PLAN AND RECOMMENDATIONS (11/2019): 1) Continue with current plan of care from EP standpoint. 2) Have echocardiogram performed to update ventricular function, valves and importantly, left atrial dimensions 3) Proceed with scheduling of atrial fibrillation catheter ablation, although with restrictions from [facility] due to COVID-19 pandemic and his ability to perform ADLs we will need to wait awhile until this type of procedure can be performed electively 4) If he is determined by new information (such as echocardiogram) not to be suitable for atrial fibrillation catheter ablation, or if such a procedure is performed and fails, he might do well with AV node catheter ablation with pacemaker implantation History and physical day of procedure Cinthia Warner CNP 02/23/2020: Mr. Ruiz is a 74 year old male who presents for elective electrophysiology study with radiofrequency catheter ablation of symptomatic persistent atrial fibrillation. He has a history of coronary artery disease, underwent CABG in February/2018. Prior to that he had undergone angioplasty with stent placement to the distal right coronary artery in April/2013. At the time of CABG he also had Atricure closure of left atrial appendage. He has a long history of atrial arrhythmias, including atrial fibrillation and atrial flutter, beginning in about 2005. He underwent electrical cardioversion for atrial fibrillation in 10/2005 and was treated with sotalol, but the antiarrhythmic drug failed to control the atrial fibrillation. He was then changed to flecainide therapy in about November/2005. He then developed typical right atrial flutter and was thought to be facilitated by the flecainide. Subsequently he underwent catheter ablation of typical right atrial flutter 12/01/2005 at [facility]. However, the atrial fibrillation recurred and was symptomatic. He experience bothersome symptoms including fatigue, exertional shortness of breath, effort intolerance. The flecainide was discontinued, due to inefficacy and also because he did not tolerate it well, stated the flecainide made him feel terrible. He was then treated with Rythmol, but this was ineffective. He underwent atrial fibrillation catheter ablation in March/2900 [facility], performed by Dr. Corrales. The patient reports he did well following the ablation procedure, although he had recurrence of atrial fibrillation sometime in 2009. He believes he was treated with antiarrhythmic drug at that time, believes it was amiodarone, and may have had electrical cardioversion about that time. He was treated with amiodarone and lisinopril for a number of years, however his park manager was concerned about potential amiodarone pulmonary toxicity, so the amiodarone was discontinued in 2015. He did not experience much atrial fibrillation over the next few years, and only experiences substantial amount of atrial fibrillation after the CABG in 2017. He underwent successful electrical cardioversion at the end of July/2018, however the atrial fibrillation recurred within a day or 2. He experiences symptoms with the atrial fibrillation, including fatigue, feeling out of breath with activity (exertional dyspnea). He also wore a 24-Hour Holter monitor which demonstrated atrial fibrillation 100% of the time. He has sleep apnea, reports compliance with CPAP therapy. He states he was previously scheduled for atrial fibrillation ablation, but his INRs were not therapeutic. Today his INR is 2.04, his INR is monitored by his ground school instructor, Dr. Dahl. He denies coughing, wheezing, fever or chills, COVID-19 test on 02/21/20 was negative. He denies issues with anesthesia. He continues to have shortness of breath with activity and fatigue, denies chest discomfort or palpitations. He is ready to proceed with scheduled atrial fibrillation ablation with Dr. Lance. Interval History Cinthia Warner ELECTRONIC SCALE SUBASSEMBLER 05/12/2020: The patient underwent radiofrequency catheter ablation of symptomatic persistent atrial fibrillation on 02/23/[address] Lance. The patient reports he has been well since the ablation procedure, states he healed well and has felt less short of breath since the procedure, he is pleased with his results. He denies recurrence of atrial arrhythmia. He did inquire if he needs to continue taking Coumadin, I have informed him from our standpoint we recommend he stay on anticoagulation due to YLV1-XU4-HVDy score of 3 and stroke prevention. He is accompanied by his . He denies chest discomfort, palpitations, shortness of breath, lightheadedness, dizziness, near-syncope or syncope. He does admit to sleep apnea, reports compliance with CPAP machine. Interim History Dr. Lance 08/16/2020: Mr. Ruiz presents for follow-up evaluation. He states that he has been doing very well. He has not been very much aware of having any substantial recurrences of arrhythmia. He exercises regularly and is not limited in his activities. He denies chest pain, shortness of breath, orthopnea, palpitations, PND, lightheadedness or syncope. Interval History 02/14/2021 Cinthia Warner ECHOCARDIOGRAPH TECHNICIAN: The patient reports he has been well since last seen by Dr. Lance in August. He does admit to occasional fatigue, continues to take metoprolol tartrate 25 mg twice daily, I have asked that he discuss with Dr. Dahl if the dose can be reduced, he is due to follow up the end of this year. EKG today shows marked sinus bradycardia, 49 bpm, patient denies chest discomfort, shortness of breath, lightheadedness, dizziness, near-syncope or syncope. He denies recurrence of atrial arrhythmia, denies palpitations. He does have sleep apnea, reports compliance with CPAP therapy. Interim History Dr. Lance 02/16/2022: Mr. Ruiz presents for follow-up evaluation for arrhythmia. Overall from the heart rhythm standpoint he has been doing reasonably well. He had recently cut the metoprolol dosage in half, but then he experienced palpitations so he increase the dose back to the previous dosage. He states he is being evaluated for possible pulmonary disease, has an appointment with a new park manager soon. He denies chest pain, shortness of breath, orthopnea, palpitations, lightheadedness or syncope. I have confirmed and edited as necessary, the PFSH and ROS obtained by others. 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; amiodarone therapy was from about 2009 to about 2015 Anticoagulant long-term use warfarin; indication: stroke prevention atrial fibrillation; also had TOM clipped (Atricure clip) at time of CABG 02/2018 At risk for stroke [id number] = 3 (HTN, age, CAD) Atherosclerotic heart disease Beta-sania intolerance fatigue with metoprolol CAD (coronary artery disease) CAD s/p PCI/stent distal RCA; s/p CABG 02/2018 Essential hypertension, benign Goiter, unspecified History of atrial flutter probably facilitated by Class IC antiarrhythmic drug flecainide; s/p typical right atrial flutter circuit (cavotricuspid isthmus) catheter ablation 11/2005 Hyperlipidemia Hyperthyroid Murmur 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 Obstructive sleep apnea states compliance with prescribed CPAP therapy Persistent atrial fibrillation (HCC) 2005 symptomatic; diagnosed 2005; antiarrhythmic drug therapy failed (sotalol, flecainide, propafenone, amiodarone); underwent typical right atrial flutter ablation 11/2005; underwent AF catheter ablation ([facility]) 03/2009; recurrent AF 2009 s/p cardioversion, amiodarone therapy; amiodarone pulmonary toxicity about 2015; postop after CABG 2017, underwent cardioversion 07/2018 with recurrent AF soon after Presence of coronary angioplasty implant and graft Pulmonary fibrosis (HCC) Pure hypercholesterolemia SOB (shortness of breath) Status post catheter ablation of atrial fibrillation 03/18/2009 AF catheter ablation/PVAI (RF) at [facility] Dr. Corrales 03/2009; redo AF catheter ablation/PVAI (RF) 02/23/[address] [facility] [address]. Lance Status post catheter ablation of atrial flutter 12/01/2005 typical right atrial flutter circuit (cavotricuspid isthmus) RF catheter ablation 12/01/2005; Dr. Vickie Wilcox Status post ligation of left atrial appendage Atricure clip of TOM at time of CABG 02/2018 PAST SURGICAL HISTORY Procedure Laterality Date AFIB ABLATION/PULM VEIN ISOLATION 03/18/2009 AF catheter ablation/PVAI (RF) at [facility] Dr. Corrales AFIB ABLATION/PULM VEIN ISOLATION 02/23/2020 redo AF catheter ablation/PVAI; [facility] Dr. Lance ARTHRP KNE CONDYLE&PLATU MEDIAL&LAT COMPARTMENTS Bilateral 2013 Knee replacement, total 2012 2013 CABG (3) VEIN GRAFTS & ARTERIAL GRAFT(S) 02/28/2018 CABG x 3 vessels: JUAREZ-LAD, SVG-OM, SVG-PDA; also with TOM clip (Atricure) CARDIAC CATH 12/10/2017 CARDIAC STRESS TEST 04/23/2018 CARDIOVERSION ELECTIVE ARRHYTHMIA INTERNAL SPX 10/2005 CARDIOVERSION ELECTIVE ARRHYTHMIA INTERNAL SPX 08/13/2018 successful religious of sinus rhythm; but atrial fibrillation recurred within about one day ECHO TRANSESOPHAG CONGEN PROBE [facility] IMGNG I&R 12/27/2017 LVEF 65%; moderate LAE ECHOCARDIOGRAM 12/07/2017 normal LV systolic fxn; LVEF 60%; moderate LAE ECHOCARDIOGRAM 12/16/2019 [facility]; see scanned document ECHOCARDIOGRAM 05/06/2020 [facility]GERY HX Right 07/2019 EPS: SVT ABLATION 12/01/2005 typical right atrial flutter circuit (cavotricuspid isthmus) RF catheter ablation; Dr. Vickie Wilcox HOLTER MONITOR 24 HRS 11/2019 patient states it showed persistent atrial fibrillation INSERT INTRACORONARY STENT 04/2013 PCI/stent to distal RCA NEUROPLASTY &/TRANSPOS MEDIAN NRV CARPAL TUNNE Right 07/04/2005 REMV CATARACT EXTRACAP,INSERT LENS 2020 STRESS TEST NUCLEAR 12/01/2017 THORACENTESIS Left 03/08/2018 THYROIDECTOMY SUBTOTAL/PARTIAL 11/17/2002 right thyroid lobectomy SOCIAL HISTORY Social History Tobacco Use Smoking status: Former Smoker Types: Pipe Start date: 1964 Quit date: 01/03/1992 Years since quittin.1 Smokeless tobacco: Never Used Tobacco comment: smoked a pipe until 1991 Vaping Use Vaping Use: Never used Substance Use Topics Alcohol use: No Drug use: No FAMILY HISTORY Problem Relation Age of Onset Diabetes Mother Heart Attack Mother 70 in her sleep Heart disease Mother Heart Attack Father 66 in his sleep Heart disease Father Asthma Sister from ASA allergy ALLERGIES: ALLERGIES Allergen Reactions Amiodarone (Bulk) Shortness of Breath Possibly pulmonary fibrosis Beta Blockers [Beta* Other: See Comments Fatigue with metoprolol Grass Pollen Other: See Comments Ragweed Other: See Comments [id number] Red* Myalgia Trees Other: See Comments MEDICATIONS: pyridoxine, vitamin B6, (VITAMIN B-6) 50 mg cap, Take by mouth. fexofenadine (KING) 180 mg tablet, Take 180 mg by mouth once daily as needed (allergy symptoms). lisinopril (ZESTRIL, PRINIVIL) 10 mg tablet, Take 5 mg by mouth once daily. omeprazole (PRILOSEC) 40 mg capsule, Take 40 mg by mouth once daily. prednisoLONE acetate (PRED FORTE, ECONOPRED PLUS) 1 % ophthalmic suspension, INSTILL ONE DROP INTO EACH EYE THREE TIMES DAILY FOR 7-10 DAYS. SHAKE WELL BEFORE EACH USE. warfarin (COUMADIN) 6 mg tablet, ferrous sulfate (IRON) 325 mg (65 mg iron) tablet, Take 325 mg by mouth daily with breakfast. ascorbic acid, vitamin C, (VITAMIN C) 500 mg tablet, Take 500 mg by mouth once daily. albuterol HFA (PROVENTIL HFA, VENTOLIN HFA) 90 mcg/actuation inhaler, INHALE 2 PUFFS BY MOUTH EVERY 4 HOURS NEEDED FOR COUGH OR SHORTNESS OF BREATH fluticasone (FLONASE) 50 mcg/actuation nasal spray, USE 1 SPRAY IN EACH NOSTRIL ONCE DAILY IN THE MORNING (FOR AT LEAST ONE MONTH) warfarin (COUMADIN) 5 mg tablet, Take 5 mg by mouth as directed. 6 mg daily except Sunday 8 mg warfarin (COUMADIN) 1 mg tablet, Take 1 mg by mouth as directed. metoprolol tartrate, short acting, (LOPRESSOR) 25 mg tablet, Take 25 mg by mouth twice daily. tamsulosin ER (FLOMAX) 0.4 mg cap, Take 0.4 mg by mouth once daily. warfarin (COUMADIN) 2 mg tablet, Take 2 mg by mouth as directed. dose dependent on INR pravastatin (PRAVACHOL) 40 mg tablet, Take 1 tablet by mouth daily at bedtime. magnesium oxide (MAG-OX) 400 mg tablet, Take by mouth once daily. Cholecalciferol, Vitamin D3, (VITAMIN D-3) 2,000 unit cap, Take 1 capsule by mouth once daily. hydroCHLOROthiazide (HYDRODIURIL, ESIDRIX) 25 mg tablet, Take 25 mg by mouth once daily. aspirin(ECOTRIN LOW STRENGTH 81 MG TAB), Take 81 mg by mouth once daily. Review of Systems Constitutional: Negative for chills, fever and malaise/fatigue. Respiratory: Negative for cough, hemoptysis, sputum production and shortness of breath. Cardiovascular: Negative for chest pain, palpitations, orthopnea and PND. Gastrointestinal: Negative for abdominal pain, blood in stool, nausea and vomiting. Genitourinary: Negative for hematuria. Skin: Negative for rash. Neurological: Negative for dizziness and loss of consciousness. PHYSICAL EXAMINATION: BP 131/79 Pulse 51 Resp 18 Ht 5' 10 (1.78m) Wt 231 lb (104.8kg) SpO2 98% BMI 33.15 kg/(m^2). Physical Exam Vitals reviewed. Constitutional: General: He is not in acute distress. Appearance: Normal appearance. HENT: Head: Normocephalic and atraumatic. Cardiovascular: Rate and Rhythm: Regular rhythm. Bradycardia present. Heart sounds: Normal heart sounds, S1 normal and S2 normal. No murmur heard. No friction rub. Pulmonary: Effort: Pulmonary effort is normal. No respiratory distress. Breath sounds: Normal breath sounds. No wheezing, rhonchi or rales. Abdominal: General: Bowel sounds are normal. Palpations: Abdomen is soft. Tenderness: There is no abdominal tenderness. Musculoskeletal: Cervical back: Neck supple. Skin: General: Skin is warm and dry. Neurological: General: No focal deficit present. Mental Status: He is alert and oriented to person, place, and time. Psychiatric: Mood and Affect: Mood normal. Behavior: Behavior normal. Thought Content: Thought content normal. CARDIOVASCULAR MEDICINE TESTING: Electrocardiogram: Sinus bradycardia 51 bpm; normal conduction intervals (LA 188 ms, QRS 96 ms); QTc 401 ms I have personally reviewed the Electrocardiogram. I spent a total of 45 minutes on the date of the service which included preparing to see the patient, [id number] patient care, completing clinical documentation, obtaining and/or reviewing separately obtained history, performing a medically appropriate examination, counseling and educating the patient/family/caregiver, ordering medications, tests, or procedures, communicating with other HCPs (not separately reported), independently interpreting results (not separately reported), communicating results to the patient/family/caregiver and care coordination (not separately reported). ASSESSMENT/PLAN: 1. Persistent atrial fibrillation (HCC) - ICD9: 427.31, ICD10: I48.19 (primary diagnosis) 2. Status post catheter ablation of atrial fibrillation - ICD9: V45.89, ICD10: Z98.890 3. Atrial flutter, unspecified type (HCC) - ICD9: 427.32, ICD10: I48.92 4. Status post catheter ablation of atrial flutter - ICD9: V45.89, ICD10: Z98.890 5. Status post ligation of left atrial appendage - ICD9: V45.89, ICD10: Z98.890 6. Coronary arteriosclerosis in [facility] [facility] [place] artery - ICD9: 414.01, ICD10: I25.10 7. Presence of aortocoronary bypass graft - ICD9: V45.81, ICD10: Z95.1 8. Obstructive sleep apnea - ICD9: 327.23, ICD10: G47.33 9. At risk for stroke - ICD9: V15.89, ICD10: Z91.89 10. Anticoagulant long-term use - ICD9: V58.61, ICD10: Z79.01 IMPRESSION: Mr. Ruiz seems to be stable and doing reasonably well from a heart rhythm standpoint. I do not have any changes to make to his regimen. PLAN AND RECOMMENDATIONS: Continue with current plan of care from EP standpoint. Return in about 1 year (around 02/16/2023) for appt with Dr. Lance or EP ELECTRONIC SCALE SUBASSEMBLER. Callum Lance MD 02/16/2022 Medical Decision Making: Problems: Moderate: 2+ stable chronic illnesses Data: Unique test result(s) reviewed: 2 Unique test(s) ordered: 1 Risk: Moderate: Moderate risk from testing/treatment and Drug management Medical Decision Making Level: 4 - Moderate documented in this encounter [facility] History of Past illness Narrative 11-19-2019 Note Date & Type Note Facility documented as of this encounter (statuses as of 02/18/2022) [facility] History of Past illness Narrative 11-19-2019 Note Date & Type Note Facility documented as of this encounter (statuses as of 02/16/2023) [facility] Evaluation note Note Date & Type Note Facility documented in this encounter [facility] Evaluation note Note Date & Type Note Facility documented in this encounter [facility] Summary Purpose Family History No Family History Records FoundNo Family History Records FoundNo Family History Records FoundNo Family History Records FoundNo Family History Records FoundNo Family History Records FoundNo Family History Records FoundNo Family History Records FoundNo Family History Records FoundNo Family History Records Found Advance Directives No Advanced Directives Records FoundDocuments on File Type Date Recorded Patient Radiologic Technology Program Director Expl anation Advance Directives and Living Will Documents on File Type Date Recorded Patient Radiologic Technology Program Director Expl anation Advance Directives and Livin g Will 08/08/2019 7:24 AM Documents on File Type Date Recorded Patient Radiologic Technology Program Director Expl anation Advance Directives and Livin g Will 08/08/2019 7:24 AM Documents on File Type Date Recorded Patient Radiologic Technology Program Director Expl anation Advance Directive(s) 02/28/2018 5:29 PM History of Present Illness * Debbie Gomes MD - 09/30/2018 9:44 AM EDT Dictation on: 09/30/2018 9:47 AM by: DEBBIE GOMES [[id number]] in this encounter* Debbie Gomes MD - 03/03/2019 4:57 PM EDT Dictation on: 03/03/2019 4:58 PM by: DEBBIE GOMSE [[id number]] documented in this encounter* Alysha Coleman LPN - 04/28/2019 1:28 PM EDT O luciano Gentile today. His PCP ordered NCV studies at [facility] 05-13-19. He will bring the results to the [place] office for Dr Gomes to review. documented in this encounter* Lindy Martell LPN - 08/13/2019 3:31 PM EST Patient called today c/o swelling in hand . Advised to lay in bed and have arm elevated above his heart and use the ice at least 4 times a day for an hour at a time.. Patient has been laying in a recliner with arm elevated and using ice . documented in this encounter* Debbie Gomes MD - 08/22/2019 5:09 PM EST He comes in today for followup of his right cubital tunnel decompression with an ulnar nerve transposition. He is doing well. His splint is removed. Wound is healed. No signs of infection. No DVT signs in the upper extremity. Motor function is completely intact. He has good range of motion of the elbow. IMPRESSION 2 weeks status post cubital tunnel decompression with ulnar nerve transposition. PLAN At this point in time, we will do local wound care, home exercise, and I will see him in a month. documented in this encounter* Debbie Gomes MD - 09/22/2019 3:56 PM EDT Mr. Ruiz comes today for 2 issues. Issue #1 is his followup of his right cubital tunnel release. Issue #2 is his right wrist arthritis. He would like to get an injection into the right wrist. We had him immobilized in the cubital tunnel brace for about 2 weeks after surgery. He has been doing exercise. He is 6 weeks after the cubital tunnel release, but the right wrist is painful. If you recall, we have injected it in the past before. He has an advanced SLAC wrist deformity,; and, at this time, the patient says he is contemplating a right wrist replacement. As far as the numbness and tingling in the ulnar nerve distribution, he does still have some numbness and tingling in the ulnar nerve distribution. PHYSICAL EXAMINATION Today, at this time, he is awake, alert and oriented x3. He ambulates without assistive devices with his . His right upper extremity has some diffuse swelling throughout his hands. No signs of compartment syndrome. He has at this point in time full pronation and supination. He has about 35 degrees of wrist extension and flexion, mild wrist effusion with severe tenderness over the dorsal scapholunate ligament. Right elbow wound is healed, no signs of infection. He has 10 degrees short of elbow full extension with 140 degrees of elbow flexion. No elbow instability. IMAGING X-ray of the right wrist was reviewed with the patient. 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 3.Status post right cubital tunnel release. PLAN Today, under sterile conditions, with the patient's consent, we injected 20 mg of Kenalog 2.5 cc and 1% lidocaine without epinephrine into the right wrist through a dorsal approach. Patient toleratedthe procedure well. For the diffuse hand and wrist swelling, I also am going to proceed forward with a Medrol Dosepak. The patient will proceed forward with taking that. I will have him do a course of home exercises and I will see him in 6 weeks. documented in this encounter* Debbie Gomes MD - 11/03/2019 11:52 AM EDT Dictation on: 11/03/2019 11:54 AM by: DEBBIE GOMES [[id number]] documented in this encounter Assessments Diagnosis Arthritis of right wrist- Primary Arthralgia of right wrist Cubital tunnel syndrome on right Diagnosis Arthritis of right wrist- Primary Diagnosis Cubital tunnel syndrome on right Diagnosis Cubital tunnel syndrome on right Diagnosis Cubital tunnel syndrome on right Arthritis of right wrist Diagnosis Arthritis of right wrist Cubital tunnel syndrome on right Discharge Instructions * Discharge Instr - Other Orders* Riana Cedeno RN - 08/08/2019 11:52 AM EST GENERAL POST-OPERATIVE PATIENT INSTRUCTIONS ANESTHESIA PRECAUTIONS: A responsible adult must stay with you for at least 24 hours after surgery. You may feel light headed,, dizzy, or nauseated during this time. Do not operate a vehicle (car, bike, motorcycle, vp delivery) machinery or power tools. Do not make any important decisions or drink any alcoholic beverages for 24 hours. Children should remain quiet today. No riding of bicycles, motorcycles, skateboards, playing on swings etc. Drink plenty of fluids today. Eat light, small, frequent meals today. Resume regular diet tomorrow. FOLLOW-UP: Please make an appointment with your physician for follow-up. Call your physician immediately if you have any fevers greater than 101, drainage from your wound that is not clear or looks infected, persistent bleeding, increasing abdominal pain, problems urinating, or persistent nausea/vomiting. DIET: You may eat any foods that you can tolerate. It is a good idea to eat a high fiber diet and take in plenty of fluids to prevent constipation. If you do become constipated you may want to take amild laxative or take ducolax tablets on a daily basis until your bowel habits are regular. Constipation can be very uncomfortable, along with straining, after recent surgery. ACTIVITY: You are encouraged to cough and deep breathe or use your incentive spirometer if you weregiven one, every 15-30 minutes when awake. This will help prevent respiratory complications and lowgrade fevers post-operatively if you had a general anesthetic. You are encouraged to walk and engage in light activity for the next two weeks. MEDICATIONS: Try to take narcotic medications and anti-inflammatory medications, such as ibuprofen,naprosyn, etc., with food. This will minimize stomach upset from the medication. Should you developnausea and vomiting from the pain medication, or develop a rash, please discontinue the medication and contact your physician. You should not drive, make important decisions, or operate machinery when taking narcotic pain medication. Do not take tylenol or tylenol products with narcotic medications. QUESTIONS: Please feel free to call your physician or the hospital shaker screen operator if you have any questions, and they will be glad to assist you. documented in this encounter Additional Source Comments (unrecognized sect ion and content) No Status Records FoundNo Status Records FoundNo Status Records FoundNo Status Records FoundNo Status Records FoundNo Status Records FoundNo Status Records FoundNo Status Records FoundNo Status Records FoundNo Status Records Found INFORMATION SOURCE (unrecogn ized section and content) DATE CREATED AUTHOR AUTHOR'S ORGANIZ ATION 06/25/2019 [facility] DATE CREATED AUTHOR AUTHOR'S ORGANIZ ATION 08/07/2019 [facility] DATE CREATED AUTHOR AUTHOR'S OR[facility]IZ ATION [facility] DATE CREATED AUTHOR AUTHOR'S ORGANIZ ATION 11/03/2019 [facility] DATE CREATED AUTHOR AUTHOR'S ORGANIZ ATION 10/07/2020 [facility] DATE CREATED AUTHOR AUTHOR'S ORGANIZ ATION 12/22/2020 [facility] DATE CREATED AUTHOR AUTHOR'S ORGANIZ ATION [facility] DATE CREATED AUTHOR AUTHOR'S ORGANIZ ATION 11/19/2022 [facility] DATE CREATED AUTHOR AUTHOR'S ORGANIZ ATION 02/17/2023 [facility] Reason for Visit (unrecogniz ed section and content) Reason Comments Follow-up Status Reason Specialty Diagnoses / Procedures Referre d By Contact Referred To Contact Diagnoses Cubital tunnel syndrome on right Cubital tunnel syndrome on right [G56.21] Procedures LA REVISE ULNAR NERVE AT ELBOW Debbie Gomes MD [address] [place] [address] Reason Comments Follow-up Suture / Staple Removal Reason Comments CARD Follow Up Annual Atrial Flutter Reason Comments CARD Follow Up Annual Afib Debbie Gomes MD - 08/08/2019 10:33 AM Debbie Early MD - 08/08/2019 8:52 AM EST H&P Notes (unrecognized sect ion and content) INTERVAL HISTORY AND PHYSICAL Patient Name: Seferino Ruiz Admit Date: MR #: [id number] : 1945 The H&P has been reviewed and the patient has been examined. I concur with the findings of the H&P. There are no significant changes. It is appropriate to proceed with the planned procedure. Debbie Gomes MD 08/08/2019 10:33 AM IDY Gentile is a 74-year-old patient well known to me, who has had previous right carpal tunnel release performed, but unfortunately has cubital tunnel syndrome. This gentleman continues to have numbness and tingling in the right upper extremity in the 4th and 5th finger. He has degenerative changes in the right wrist, but at this point in time, the gentleman says his right 4th and 5th finger are numb. In the right median nerve distribution, carpal tunnel release did very well. He comes in today for ulnar nerve decompression. MEDICATIONS Uroxatral, Cardia, vitamin D, Proscar, HydroDIURIL, Zestril, magnesium, Pravachol. ILLNESSES High cholesterol, high blood pressure, prostate hypertrophy, coronary artery disease, gout, sleep apnea. PAST SURGICAL HISTORY He has had cardiac stents. He has had multiple joint replacements. He has had previous carpal tunnel releases. X-ray bone spur formation cubital tunnel. PHYSICAL EXAMINATION General: He is awake, alert and oriented x3. He ambulates without an assistive device. Chest, abdomen, and cardiac: Benign. Extremities: Right upper extremity has diminished sensation in the 4th and 5th finger consistent with ulnar nerve compression. He has elbow with 10 degrees short of full extension, 140 degrees of flexion. No elbow instability. Positive Tinel's at the cubital tunnel. Skin: Intact without lesions, normocephalic. ALLERGIES Of note are amiodarone. IMPRESSION Right cubital tunnel syndrome based on EMG. PLAN We will proceed with right cubital tunnel release and ulnar nerve transposition. All risks and complications were discussed. D 08/08/2019 08:54 [id number] 08/08/2019 09:11 MCB/MODL documented in this encounter Op Note - Debbie Gomes MD - 08/08/2019 2:30 PM ESTBrief Op Note - Debbie Gomes MD - 08/08/2019 11:45 AM EST Miscellaneous Notes (unrecog nized section and content) Dictation on: 08/08/2019 5:03 PM by: DEBBIE GOMES [[id number]] Brief Post Operative Note Patient Name: Seferino Ruiz : 1945 (74 y.o.) Date of Service: 08/08/2019 [facility]: [id number] Procedure(s): Right cubital tunnel release Pre-Operative Diagnoses: * Cubital tunnel syndrome on right [G56.21] Post-Operative Diagnoses: * Same as Pre-Op Diagnosis * Cubital tunnel syndrome on right [G56.21] Surgeon(s) and Role: * Debbie Gomes MD - Primary Anesthesiologist: Dinesh Hammond MD INSTRUCTIONAL MANAGER: Adrianne Thompson CRNA Site Auditor: Louise Linda RN Scrub Person: ST PHILIP ShelbyA: Stephenie Arvizu RN Operative findings: cubital tunnel Intra and immediate post-operative complications: none Type of anesthesia used: General Estimated blood loss: 1 mL Estimated urine output: Refer to surgical log Specimen(s): * No specimens in log * Implant(s): * No implants in log * Drain(s): * No LDAs found * Wound(s): Wound 08/08/19 Surgical Wound Arm Right (Active) Debbie Gomes MD 08/08/2019 11:45 AM documented in this encounter Source Comments (unrecognize d section and content) In the event this informatio n is protected by the Federal Confidentiality of Alcohol and Drug Abuse Patient Records regulations: The Federal rules restrict any use of the information to criminally investigate or prosecute any alcohol or drug abuse patient.[facility] the event this information is protected by the Federal Confidentiality of Alcohol and Drug Abuse Patient Records regulations: The Federal rules restrict any use of the information to criminally investigate or prosecute any alcohol or drug abuse patient.[facility] Care Teams (unrecognized sec tion and content) Support Services Manager Relationship Specialty Start Date End Date Keiry Wright MD [address] [facility] [address] [place], [place] [id number] PCP - General Family Medicine 02/16/23 Nicolas Sun DO [address] [place] [address] Specialty Reticle Printer Endocrinology 11/21/19 Debbie Gomes [address] [place] [address] Specialty Reticle Printer Orthopedics 11/21/19 Dao Manzo MD [address] [facility] [address] [place], [place] [id number] Specialty Reticle Printer Urology 11/21/19 Callum Lance MD [address] [facility] [address] [place] [phone] Specialty Reticle Printer Cardiology 08/12/20 Donaldo Gong [address] [facility] [place] [phone] Specialty Reticle Printer Internal Medicine 02/16/22 Osmin Bundy MD [address] [facility] [address] [place], [place] [id number] Specialty Reticle Printer Cardiology 02/16/23 FOR RECORDS PERTAINING TO PATIENTS WHO ARE OR HAVE BEEN ENROLLED IN A CHEMICAL DEPENDENCY/SUBSTANCEABUSE PROGRAM, SOME INFORMATION MAY BE OMITTED. This clinical summary was aggregated from multiple sources. Caution should be exercised in using it in the provision of clinical care. This summary normalizes information from multiple sources, and as a consequence, information in this document may materially change the coding, format and clinical context of patient data. In addition, data may be omitted in some cases. CLINICAL DECISIONS SHOULD BE BASED ON THE PRIMARY CLINICAL RECORDS. [employer] [facility]. provides no warranty or guarantee of the accuracy or completeness of information in this document.
--- NOTE | 2023-07-19 11:15 | STRESSREP_ITS ---
Stress Test Report Date: 07/19/2023 Procedure: Pharmacologic stress nuclear imaging study Indications: History of CAD Consent: Per the patient Procedure: The patient underwent pharmacologic (Regadenoson 0.4mg ) evaluation with a peak heart rate of 68 beats per minute (47%predicted maximal heart rate) and a peak blood pressure of 132/78 mmHg. The baseline ECG demonstrated sinus rhythm. The peak pharmacologic ECG demonstrated no ischemic changes. There were no cardiac dysrhythmias pretest, during pharmacologic infusion, or recovery. There was no complaint of chest discomfort during pharmacologic infusion or recovery. The patient was injected with 14.4 millicuries of technetium 99m Cardiolite and subsequently rest SPECT Cardiolite nuclear imaging was obtained in the horizontal long, vertical long, and short axis views. The patient underwent pharmacologic (Regadenoson) evaluation. The patient was injected with 44.7 millicuries of technetium 99m Cardiolite and subsequently stress SPECT Cardiolite nuclear imaging was obtained in the horizontal long, vertical long, and short axis views. A gated Cardiolite study at peak stress was obtained. The examination was stopped secondary to completion of protocol. Rest and stress SPECT Cardiolite nuclear imaging status post realignment, normalization, and attenuation correction demonstrate no fixed or reversible perfusion defects. There is end systolic thickening and brightening. The gated Cardiolite study demonstrates myocardial thickening and inward wall motion. The reported LVEF is 77%. Impression: 1. Pharmacologic (Regadenoson) evaluation 2. Peak pharmacologic ECG with no ischemic changes. 3. There were no cardiac dysrhythmias pretest, during pharmacologic infusion, or recovery. 5. Rest and stress SPECT Cardiolite nuclear imaging demonstrate relative uniform tracer uptake and myocardial perfusion appearing within normal limits. 6. The gated Cardiolite study reports an LVEF of 77%. This note was generated with [employer] software. It may contain incorrect words, spelling, and punctuation that were not noted in checking the note before signing.
== END | disposition home or self-care (01) ==
LOC: CVS 06:28
PROVIDERS: PCP Family Medicine; Referring Provider Physician Assistant Medical; Visit Provider Physician Assistant Medical
DX: I25.10 Atherosclerotic heart disease of native coronary artery without angina pectoris (principal)
CPT/HCPCS: 78452; 93017; A9500; A4216; J2785

== ENCOUNTER 2023-08-06 07:50 | Emergency (ER) | payer MEDICARE, OTHER, SELFPAY ==
[2023-08-06 07:52] VITALS: BP 128/79; PULSE 81; RESP 18; TEMP 36; O2SAT 97; BMI 32.1
--- NOTE | 2023-08-06 08:32 | EX.ED.DYSGE1 ---
HPI History of Present Illness Chief Complaint: Chest Other Informant: patient and spouse/S.O. Narrative Narrative: 78-year-old male presenting to the emergency room with constipation. Patient states that he had lumbar surgery with Dr. Bebeto Li at [facility] in [place] last Sunday. States he was in the hospital there until Sunday. He was given an enema Sunday and had a bowel movement. He is states that he has been taking stool softeners and took increased amounts of stool softeners yesterday as well as a dose of MiraLAX with no results. He states that he is passing gas. He is eating. No vomiting. He denies any pressure in the rectal area. He states that his leg pain is improved postsurgery. He notes that he is urinating. He is unsure if he feels that he is emptying his bladder. The patient reports that after the surgery he had bilateral axillary pain. He states that he mentioned it to them. It was felt that it was musculoskeletal. He notes it is worse with arm movement and with laying down. He denies any shortness of breath. No pleuritic chest pain. It does not hurt all the time. He denies any rash. He has a history of A-fib and restarted his Coumadin yesterday. No fever. [facility] Medical History Abnormal nuclear stress test Atherosclerotic heart disease of [place] coronary artery without angina pectoris Bilateral carotid artery stenosis Bruit of left carotid artery Essential hypertension Fatigue GERD (gastroesophageal reflux disease) HNP (herniated nucleus pulposus), lumbar Hyperthyroidism FDC (current) use of anticoagulants Murmur, cardiac Nonrheumatic aortic (valve) stenosis Nonrheumatic aortic valve disorder, unspecified Nontoxic nodular goiter Obesity NADINE (obstructive sleep apnea) PAOD (peripheral arterial occlusive disease) Paroxysmal atrial fibrillation Paroxysmal atrial fibrillation Presence of stent in coronary artery (~04/2013) Pulmonary fibrosis Pure hypercholesterolemia Restrictive airway disease Shortness of breath Spinal stenosis at L4-L5 level Home Medications aspirin 81 mg tablet,delayed release (Adult Low Dose Aspirin) 81 mg PO QDAY 08/09/17 [History Last Taken 08/13/18] tamsulosin 0.4 mg capsule 0.4 mg PO DAILY 12/25/18 [History Last Taken Unknown] ascorbic acid (vitamin C) 500 mg tablet 500 mg PO DAILY 11/07/19 [History Last Taken Unknown] magnesium oxide 400 mg (241.3 mg magnesium) tablet 400 mg PO DAILY 11/07/19 [History Last Taken Unknown] fluticasone propionate 50 mcg/actuation nasal spray,suspension 1 spray intranasal DAILY PRN 06/14/20 [History Last Taken Unknown] cholecalciferol (vitamin D3) 125 mcg (5,000 unit) tablet 125 mcg PO DAILY 11/25/21 [History Last Taken Unknown] fexofenadine 180 mg tablet (Allergy Relief (fexofenadine)) 180 mg PO .prn 02/03/22 [History Last Taken Unknown] omeprazole 40 mg capsule,delayed release 40 mg PO DAILY #30 caps 02/03/22 [Rx Last Taken Unknown] albuterol sulfate 90 mcg/actuation aerosol inhaler (Proventil HFA) 2 inh inhalation Q4H PRN shortness of breath or wheezing #8.5 grams 09/12/22 [Rx Last Taken Unknown] vitamin B complex (B Complex-Vitamin B12 tablet) 1 tab PO DAILY 03/05/23 [History Last Taken Unknown] hydrochlorothiazide 25 mg tablet 25 mg PO QDAY #90 tabs 04/05/23 [Rx Last Taken Unknown] lisinopril 5 mg tablet See Rx Instructions .Route .COMPLEX #100 tabs 06/06/23 [Rx Last Taken Unknown] pravastatin 40 mg tablet 40 mg PO QHS #90 tabs 06/06/23 [Rx Last Taken Unknown] warfarin 6 mg tablet 6 mg PO DAILY #90 tabs 06/06/23 [Rx Last Taken Unknown] metoprolol tartrate 25 mg tablet See Rx Instructions .Route .COMPLEX #200 tabs 06/26/23 [Rx Last Taken Unknown] Allergy/AdvReac Type Severity Reaction Status Date / Time amiodarone AdvReac Severe pulmonary Verified 08/06/23 07:52 fibrosis [id number]-PWW-[id number] Reductase AdvReac Severe myalgias Verified 08/06/23 07:52 Inhibitor [Xcroovr-Ezy-Tpu Reductase Inhibitor] Family History Father CAD (coronary artery disease) Myocardial infarction Mother CAD (coronary artery disease) Myocardial infarction Sister , from ASA allergy Asthma Surgical History History of bilateral cataract extraction History of cardiac radiofrequency ablation (~12/01/05) History of carpal tunnel release History of coronary artery bypass graft x 3 (~02/28/18) History of elbow surgery History of knee replacement History of radiofrequency ablation procedure for cardiac arrhythmia (~02/23/20) History of thyroid surgery Postsurgical percutaneous transluminal coronary angioplasty (PTCA) status Social History Smoking Status: Former smoker how long ago did patient quit smokin years alcohol intake: never substance use type: does not use caffeine: Yes Type: coffee Number of servings: 1 what type of physical activity do you participate in: other details: Opax frequency: 5-6 times per week duration: 45-60 minutes/day seatbelt use: always do you feel safe at home: Yes ROS ROS ED Constitutional Constitutional ED: Denies chills, fever(s) or weight loss Eyes Eyes: Denies change in vision or diplopia ENT ENT ED: Denies ear pain, rhinorrhea or sore throat Cardiovascular Cardiovascular: Denies chest pain, orthopnea, palpitations or racing heartbeat Respiratory/Chest Respiratory/Chest: Denies cough, dyspnea or orthopnea Gastrointestinal Gastrointestinal: Reports constipation; Denies abdominal pain, diarrhea, nausea or vomiting Genitourinary Genitourinary ED: Denies dysuria, hematuria or urinary frequency Musculoskeletal Musculoskeletal: Reports back pain, neck pain and other Details: Bilateral axillary pain ; Denies arthralgias or myalgias Integumentary Denies abscess or rash Neurologic Neurologic: Denies headache(s) or weakness Psychiatric Psychiatric: Denies anxiety, depression, suicidal ideation or suicidal thoughts Endocrine Endocrinology: Denies polydipsia, polyphagia or polyuria Allergic/Immunologic Allergic/Immunologic ED: Denies mouth swelling, tongue swelling or urticaria EXAM Physical Exam Const Vital Signs: 08/06/23 07:52 08/06/23 09:21 Temperature 96.8 F L Temperature Source Temporal Pulse Rate 81 Respiratory Rate 18 Respiratory Effort Normal Non-Labored Blood Pressure 128/79 H Blood Pressure Mean 95 Pulse Ox 97 Oxygen Delivery Method Room Air Positive well nourished, well developed and obese General Appearance ED: well developed Nutritional Appearance: obese HEENT Reports normocephalic, head/scalp atraumatic and moist mucous membranes Eyes PERRL and EOMs intact bilaterally Neck no lymphadenopathy, supple and no JVD Chest Wall Chest Narrative: My depend interpretation of the two-view abdominal x-ray is increased stool burden. There is stool in the rectal vault. Does not appear radiographically like it would be impacted. My independent interpretation of the single view chest x-ray is hiatal hernia chronic changes of the left lower lobe. INR was checked and was 1.2. Again, he restarted his Coumadin last night. Patient received a soapsuds enema as well as magnesium citrate. Resp normal respiratory effort and clear to auscultation bilaterally Cardio regular rate, regular rhythm and no murmurs GI Inspection: Negative for abdominal distention Auscultation: hypoactive bowel sounds Palpation: soft; Negative for tender, guarding or rebound tenderness present Back/Spine no CVA tenderness and normal ROM Back/Spine Narrative: There is a healing surgical incision in the lumbar region. There is some ecchymosis noted around the surgical incision. No obvious signs of infection. Extremity normal to inspection General Extremety ED: Negative for edema General Extremity: Negative for edema Neuro oriented x3 and CN's II-XII intact bilaterally Sensorium / Orientation: alert Motor Exam: strength 5/5 throughout Psych mental status grossly normal Mood & Affect: Negative for depressed or tearful Skin no rashes or lesions noted and no wounds MDM MDM MDM Narrative Medical decision making narrative: My independent interpretation of the chest x-ray chronic changes of the left lower side. I do not think this is contributing to the patient's axillary pain. I do wonder since he has had that since surgery if it could be related to his positioning during the surgery. Since it is reproducible with movement and does not sound pleuritic I do not think we need to pursue pulmonary embolism. My independent interpretation of abdominal x-ray is large amount of stool. He received an enema and had a very large bowel movement per the patient and per nursing. I would recommend continued Colace and MiraLAX or magnesium citrate until regular bowel movements have been achieved. His INR today is 1.2. He states that he wants to call his doctor who manages it to get advice on how to get that elevated. I did offer to advise him but he states that he will call them today with the results. History & Record Review Discussion w/independent historian: Patient and Significant other Lab Data Attestation: I reviewed the patient's lab results. Labs: Laboratory Results - last 24 hr 08/06/23 08:55 PT 15.1 H INR 1.2 Radiography Diagnostic Testing: Clinical Impression(s) from Imaging Studies Chest X-Ray 08/06/23 08:40 IMPRESSION: Chronic interstitial lung disease with increased left basilar opacity from atelectasis or pneumonia with mild pleural effusion. Electronically Signed: Dayana Lan MD at 9:03 EST Reading Location ID and State: [facility] / [place] Tel , Service support , KUB X-Ray 08/06/23 08:40 IMPRESSION: Moderate stool in the colon. Bilateral nephrolithiasis. Electronically Signed: Dayana Lan MD at 9:04 EST Reading Location ID and State: [facility] / [place] Tel , Service support , Discharge Plan Triage Chief Complaint: Chest Other Other Complaint: Constipation ED Provider: Jovon Talamantes Dx/Rx/DC Orders Clinical Impression: Acute constipation, Anticoagulated on Coumadin, Pain, axillary Instructions: What to Know When Taking?Warfarin, Treating Constipation Prescriptions: No Action aspirin [Adult Low Dose Aspirin] 81 mg tablet,delayed release (DR/EC) 81 mg PO QDAY magnesium oxide 400 mg (241.3 mg magnesium) tablet 400 mg PO DAILY ascorbic acid (vitamin C) 500 mg tablet 500 mg PO DAILY cholecalciferol (vitamin D3) 125 mcg (5,000 unit) tablet 125 mcg PO DAILY fexofenadine [Allergy Relief (fexofenadine)] 180 mg tablet 180 mg PO .prn omeprazole 40 mg capsule,delayed release(DR/EC) 40 mg PO DAILY Qty: 30 6RF albuterol sulfate [Proventil HFA] 90 mcg/actuation HFA aerosol inhaler 2 inh INHALATION Q4H PRN (Reason: shortness of breath or wheezing) Qty: 8.5 6RF vitamin B complex [B Complex-Vitamin B12] Tablet 1 tab PO DAILY Rx Instructions: 3,000 tamsulosin 0.4 mg capsule 0.4 mg PO DAILY fluticasone propionate 50 mcg/actuation spray,suspension 1 spray INTRANASAL DAILY PRN Rx Instructions: administer into each nostril hydrochlorothiazide 25 mg tablet 25 mg PO QDAY Qty: 90 3RF lisinopril 5 mg tablet See Rx Instructions .ROUTE .COMPLEX Qty: 100 2RF Dose Instruction: TAKE 1 TABLET BY MOUTH DAILY Rx Instructions: TAKE 1 TABLET BY MOUTH DAILY pravastatin 40 mg tablet 40 mg PO QHS Qty: 90 3RF Hold Instructions: myalgias warfarin 6 mg tablet 6 mg PO DAILY Qty: 90 3RF Protocol: Dose Management Condition: Sunday Dose/Route: 6 mg Instruction: 1 x 6 mg tablet Condition: Sunday Dose/Route: 6 mg Instruction: 1 x 6 mg tablet Condition: Sunday Dose/Route: 6 mg Instruction: 1 x 6 mg tablet Condition: Sunday Dose/Route: 3 mg Instruction: 0.5 x 6 mg tablets Condition: Dose/Route: 6 mg Instruction: 1 x 6 mg tablet Condition: Sunday Dose/Route: 6 mg Instruction: 1 x 6 mg tablet Condition: Sunday Dose/Route: 6 mg Instruction: 1 x 6 mg tablet Protocol Text: Adjustment Start Date: 07/19/23 INR Value: 2.9 INR Date: 07/19/23 Recheck Date: 08/02/23 metoprolol tartrate 25 mg tablet See Rx Instructions .ROUTE .COMPLEX Qty: 200 2RF Hold Instructions: Order Changed Dose Instruction: TAKE 1 TABLET BY MOUTH TWICE DAILY Rx Instructions: TAKE 1 TABLET BY MOUTH TWICE DAILY Primary Care Provider: Jae Wright Referrals: Jae Wright MD [Primary Care Provider] - 3-5 Days Activity Restrictions/Additional Instructions: Please keep your appointment with Dr. Li. I recommend continuing to take the Colace twice daily especially if you are taking tramadol for pain. Either continue use of MiraLAX or [id number] magnesium citrate until your bowel movements have become regular. Your INR today was 1.2 as discussed you are going to call your doctor that manages your Coumadin to get advice on your dosing. Disposition Disposition: Home, Self Care
--- NOTE | 2023-08-06 08:40 | RAD_ITS ---
HISTORY: constipation. TECHNIQUE: XR Abdomen 1 View. COMPARISON: CT 12/28/2022. FINDINGS: BOWEL GAS PATTERN: No dilated bowel loops identified. Moderate stool in the colon. FREE AIR: Not assessed on supine view. CALCIFICATIONS: Bilateral renal calculi again seen. BONES: Interval lumbosacral spinal fusion hardware placement with skin wilmer noted. SOFT TISSUES: Prostate radiotherapy seeds seen. RAD/Abdomen Single View IMPRESSION: Moderate stool in the colon. Bilateral nephrolithiasis. Electronically Signed: Dayana Lan MD at 9:04 EST ,
--- NOTE | 2023-08-06 08:40 | RAD_ITS ---
HISTORY: chest pain. TECHNIQUE: XR Chest 1 View. COMPARISON: 11/29/2017. FINDINGS: CARDIOMEDIASTINAL BORDERS: Cardiac silhouette within normal limits in size with midline sternotomy and closure device again seen. Mediastinal contour unchanged with calcification of the aorta and large hiatal hernia. LUNGS: Chronic peripheral interstitial opacities with mildly increased left basilar opacity. PLEURA: Increased blunting of the left costophrenic angle. OSSEOUS STRUCTURES: Degenerative change. RAD/Chest 1 View (Portable) IMPRESSION: Chronic interstitial lung disease with increased left basilar opacity from atelectasis or pneumonia with mild pleural effusion. Electronically Signed: Dayana Lan MD at 9:03 EST ,
[2023-08-06 09:33] LABS: International Normalized Ratio 1.2; Prothrombin Time (Protime)PT. 15.1 SECONDS (11.7-14.9)
[2023-08-06] MEDS: Magnesium Citrate 300 ML PO (11:46)
[2023-08-06 11:47] VITALS: BP 122/78; PULSE 74; RESP 16; O2SAT 98
== END 2023-08-06 11:48 | disposition home or self-care (01) ==
PROVIDERS: Emergency Provider Emergency Medicine; PCP Family Medicine; Visit Provider Emergency Medicine
DX: M79.621 Pain in right upper arm (principal); I48.0 Paroxysmal atrial fibrillation; K59.00 Constipation, unspecified; Z87.891 Personal history of nicotine dependence; Z79.01 Long term (current) use of anticoagulants; M79.622 Pain in left upper arm; I25.10 Atherosclerotic heart disease of native coronary artery without angina pectoris; I10 Essential (primary) hypertension; Z79.899 Other long term (current) drug therapy; Z79.82 Long term (current) use of aspirin; K21.9 Gastro-esophageal reflux disease without esophagitis; Z95.5 Presence of coronary angioplasty implant and graft; Z98.41 Cataract extraction status, right eye; Z98.42 Cataract extraction status, left eye; Z96.659 Presence of unspecified artificial knee joint
CPT/HCPCS: 36415; 71045; 74018; 85610; 99285

== ENCOUNTER 2023-09-06 10:42 | Outpatient (RCR) | payer MEDICARE, SELFPAY ==
[2023-08-16 12:36] LABS: International Normalized Ratio 2.5; Prothrombin Time (Protime)PT. 27.5 SECONDS (11.7-14.9)
[2023-08-23 10:25] LABS: International Normalized Ratio 2.4; Prothrombin Time (Protime)PT. 26.2 SECONDS (11.7-14.9)
[2023-08-23 10:37] LABS: AST(SGOT) 19 U/L (15-37); Alanine Aminotransfer ALT/SGPT 18 U/L (16-61); Cholesterol 133 mg/dL (200); High Density Lipoprotein 45 mg/dL; Triglycerides 103 mg/dL; Very Low Density Lipoprotein 21 mg/dL (5-40)
[2023-09-06 12:39] LABS: International Normalized Ratio 2.3; Prothrombin Time (Protime)PT. 25.9 SECONDS (11.7-14.9)
== END 2023-09-13 18:00 | disposition home or self-care (01) ==
LOC: MTLAB 10:42
PROVIDERS: Internal Medicine Cardiovascular Disease; PCP Family Medicine; Referring Provider Nurse Practitioner Family; Visit Provider Nurse Practitioner Family
DX: I48.0 Paroxysmal atrial fibrillation (principal); Z79.01 Long term (current) use of anticoagulants; I10 Essential (primary) hypertension; I25.10 Atherosclerotic heart disease of native coronary artery without angina pectoris; E78.00 Pure hypercholesterolemia, unspecified; I77.9 Disorder of arteries and arterioles, unspecified; I65.23 Occlusion and stenosis of bilateral carotid arteries
CPT/HCPCS: 36415; 80061; 84450; 84460; 85610

== ENCOUNTER 2023-10-08 11:10 | Outpatient (RCR) | payer MEDICARE, SELFPAY ==
[2023-10-01 12:23] LABS: International Normalized Ratio 3.2; Prothrombin Time (Protime)PT. 32.8 SECONDS (11.7-14.9)
[2023-10-08 12:43] LABS: International Normalized Ratio 2.6; Prothrombin Time (Protime)PT. 27.9 SECONDS (11.7-14.9)
== END 2023-10-14 02:16 | disposition home or self-care (01) ==
LOC: MTLAB 11:10
PROVIDERS: PCP Family Medicine; Referring Provider Nurse Practitioner Family; Visit Provider Nurse Practitioner Family
DX: I48.0 Paroxysmal atrial fibrillation (principal); Z79.01 Long term (current) use of anticoagulants
CPT/HCPCS: 36415; 85610

== ENCOUNTER → 2023-10-19 | Outpatient (CLI) | payer MEDICARE, SELFPAY ==
--- NOTE | 2023-10-19 09:34 | ECHOCS_ITS ---
Reason For Study: SOB Procedure This was a 2D Doppler, Color Flow transthoracic echocardiogram. The study was technically difficult. Contrast injection was performed. Exam performed in department. Left Ventricle Normal size and thickness. The left ventricular ejection fraction is 65 %. Stage 2 diastolic dysfunction. Right Ventricle Normal right ventricle. Atria The left atrium is severely enlarged. The right atrium is mildly enlarged. Mitral Valve Mild (1+) mitral valve insufficiency. Tricuspid Valve Trivial tricuspid valve insufficiency. Right ventricular systolic pressure estimated to be 39 mmHg. Aortic Valve Trisinus/trileaflet aortic valve. Mild diffuse aortic valve calcification. Mild aortic stenosis. Mild (1+) aortic valve insufficiency. Pulmonic Valve The pulmonic valve is not well visualized. Great Vessels Normal sized aortic root. Pericardium/Pleural No pericardial effusion. Medication 22 gauge I.V. with prn adaptor inserted into right arm. Diluted definity 2ml given slow IV push to enhance endocardial definition. MMode/2D Measurements & Calculations LVIDd: 5.8 cm IVSd: 0.76 cm LVOT diam: 2.0 cm LVIDs: 3.7 cm LVPWd: 1.1 cm RVDd: 3.9 cm FS: 35.7 % LVOT area: 3.0 cm2 Ao root diam: 3.6 cm LAV(MOD-bp): 79.9 ml LVAd ap4: 37.6 cm2 LA dimension: 5.0 cm LAV(MOD-bp) Indexed: 36.5 ml/m2 LVLd ap4: 8.2 cm LAV(MOD-sp2): 51.9 ml EDV(MOD-sp4): 143.2 ml LAV(MOD-sp4): 111.0 ml EDV(sp4-el): 146.8 ml LVAs ap4: 19.0 cm2 LVLs ap4: 5.7 cm ESV(MOD-sp4): 53.8 ml ESV(sp4-el): 54.2 ml EF(MOD-sp4): 62.4 % EF(sp4-el): 63.1 % SV(MOD-sp4): 89.4 ml SV(sp4-el): 92.6 ml LA A4 area: 30.6 cm2 RA A4 area: 20.9 cm2 TAPSE: 2.0 cm Time Measurements MV dec time: 0.18 sec Doppler Measurements & Calculations MV E max omar: 86.1 cm/sec Lat Peak E' Omar: 9.3 cm/sec Med Peak E' Omar: 7.2 cm/sec MV A max omar: 45.1 cm/sec E/E' lat: 9.2 E/E' med: 12.0 MV E/A: 1.9 MV V2 max: 103.6 cm/sec MV P1/2t max omar: 103.6 cm/sec Ao V2 max: 280.7 cm/sec MV max P.3 mmHg MV P1/2t: 67.1 msec Ao max P.6 mmHg MV V2 mean: 37.5 cm/sec MV dec slope: 452.2 cm/sec2 Ao V2 mean: 195.1 cm/sec MV mean P.78 mmHg MVA(P1/2t): 3.3 cm2 Ao mean P.5 mmHg MV V2 VTI: 35.0 cm Ao V2 VTI: 65.9 cm MVA(VTI): 2.6 cm2 AV (velocity ratio): 0.46 BASHIR(I,D): 1.4 cm2 BASHIR(V,D): 1.3 cm2 LV V1 max: 124.7 cm/sec MR max omar: 540.7 cm/sec SV(LVOT): 91.4 ml LV V1 max P.3 mmHg MR max P.0 mmHg LV V1 mean P.3 mmHg LV V1 mean: 83.9 cm/sec LV V1 VTI: 30.5 cm PA V2 max: 101.9 cm/sec TR max omar: 281.6 cm/sec TR max P.7 mmHg ECHO/Echo Complete W/ Contrast Interpretation Summary The left ventricular ejection fraction is 65 %. Stage 2 diastolic dysfunction. The left atrium is severely enlarged. The right atrium is mildly enlarged. Mild (1+) mitral valve insufficiency. Right ventricular systolic pressure estimated to be 39 mmHg. Mild aortic stenosis. Mild (1+) aortic valve insufficiency. Ordering Physician: Osmin Bundy Referring Physician: Jae Wright Performed By: Henok Moody RCS
== END | disposition home or self-care (01) ==
LOC: CVS 09:33
PROVIDERS: PCP Family Medicine; Referring Provider Internal Medicine Cardiovascular Disease; Visit Provider Internal Medicine Cardiovascular Disease
DX: I35.0 Nonrheumatic aortic (valve) stenosis (principal); I48.0 Paroxysmal atrial fibrillation; R06.02 Shortness of breath
CPT/HCPCS: 93306; Q9957; A4216; C8929

== ENCOUNTER 2023-10-29 10:31 | Outpatient (RCR) | payer MEDICARE, SELFPAY ==
[2023-10-29 12:59] LABS: International Normalized Ratio 2.7; Prothrombin Time (Protime)PT. 28.6 SECONDS (11.7-14.9)
== END 2023-11-13 22:35 | disposition home or self-care (01) ==
LOC: MTLAB 10:31
PROVIDERS: PCP Family Medicine; Referring Provider Nurse Practitioner Family; Visit Provider Nurse Practitioner Family
DX: I48.0 Paroxysmal atrial fibrillation (principal); Z79.01 Long term (current) use of anticoagulants
CPT/HCPCS: 36415; 85610

== ENCOUNTER 2023-12-11 10:19 | Outpatient (RCR) | payer MEDICARE, SELFPAY ==
[2023-11-26 16:01] LABS: International Normalized Ratio 3.4; Prothrombin Time (Protime)PT. 34.1 SECONDS (11.7-14.9)
[2023-12-11 12:42] LABS: International Normalized Ratio 2.8; Prothrombin Time (Protime)PT. 29.4 SECONDS (11.7-14.9)
== END 2023-12-11 18:00 | disposition home or self-care (01) ==
LOC: MTLAB 10:19
PROVIDERS: PCP Family Medicine; Referring Provider Nurse Practitioner Family; Visit Provider Nurse Practitioner Family
DX: I48.0 Paroxysmal atrial fibrillation (principal); Z79.01 Long term (current) use of anticoagulants
CPT/HCPCS: 36415; 85610

== ENCOUNTER → 2023-12-21 | Outpatient (CLI) | payer MEDICARE, SELFPAY ==
--- NOTE | 2023-12-21 12:48 | RAD_ITS ---
EXAM: XR STERNUM, 2 OR MORE VIEWS CLINICAL INDICATION: pain at sternomanubrial joint TECHNIQUE: Lateral and oblique views of the sternum. COMPARISON: No relevant prior studies available. FINDINGS: LUNGS AND PLEURAL SPACES: Incidentally noted is left pleural effusion. BONES/JOINTS: Sternotomy wires are in place. No acute fracture or subluxation. No focal bone lesion. SOFT TISSUES: Normal. No soft tissue swelling or gas. No radiopaque foreign body. RAD/Sternum min 2 Views IMPRESSION: No acute sternal abnormality. Intact sternotomy wires. Electronically Signed: yRan Tejeda MD at 10:41 EDT ,
== END | disposition home or self-care (01) ==
LOC: MTRAD 12:40
PROVIDERS: PCP Family Medicine; Referring Provider Family Medicine; Visit Provider Family Medicine
DX: R07.89 Other chest pain (principal)
CPT/HCPCS: 71120

== ENCOUNTER 2023-12-25 10:17 | Outpatient (RCR) | payer MEDICARE, SELFPAY ==
[2023-12-25 12:18] LABS: Absolute Lymphocyte Count 1.29 X10^3/uL (0.83-4.51); Absolute Neutrophil Count 4.8 X10^3/uL (2.0-7.7); Basophil# 0.11 X10^3/uL; Basophil% 1.5 % (0-1); Eosinophil# 0.15 X10^3/uL; Eosinophils% 2.1 % (0-5); Hematocrit 44.8 % (40-54); Hemoglobin 13.8 g/dL (13.0-16.5); Lymphocyte # 1.29 X10^3/ul (0.83-4.51); Mean Corp Hgb Conc 30.8 g/dL (32-36); Mean Corpuscular Hgb 29.6 pg (27.0-32.0); Mean Corpuscular Volume 96.1 fL (80-94); Mean Platelet Vol. 10.7 fl (6.2-12.0); Monocyte# 0.83 X10^3/uL; Monocyte% 11.6 % (0-10); NRBC Flagged by Analyzer 0 % (0-5); Neutrophil # 4.76 X10^3/uL (2.7-7.7); Neutrophil % 66.4 % (47-70); Platelet Count 202 K/mm3 (150-450); RBC Distribution Width CV 14.1 % (11.6-14.6); RBC Distribution Width SD 49.3 fl (35.1-43.9); Red Blood Count 4.66 M/mm3 (4.6-6.2); White Blood Count 7.2 K/mm3 (4.4-11.0)
[2023-12-25 12:25] LABS: International Normalized Ratio 2.9; Prothrombin Time (Protime)PT. 29.8 SECONDS (11.7-14.9)
[2023-12-25 13:14] LABS: ALB/GLOB Ratio 0.9 RATIO (0.9-2.4); AST(SGOT) 18 U/L (15-37); Alanine Aminotransfer ALT/SGPT 15 U/L (16-61); Albumin, Serum 3.4 g/dL (3.2-5.0); Alkaline Phosphatase 103 U/L (45-117); Anion Gap 3 (5-15); BUN 26 mg/dL (7-18); BUN/Creat Ratio 17.8 RATIO (10-20); Calcium,Total 9.1 mg/dL (8.5-10.1); Chloride 108 mmol/L (98-107); Creatinine, Serum 1.46 mg/dL (0.70-1.30); EST Glomerular Filtration Rate 50 mL/min (>60); Est Glom Filt Rate - Afr Amer 60 mL/min (>60); Globulin 3.6 g/dL (2.2-4.2); Glucose 97 mg/dL (74-106); Potassium 4.5 mmol/L (3.5-5.1); Sodium Level 138 mmol/L (136-145)
[2023-12-25 13:21] LABS: PTHIN 91.6 pg/mL (18.4-80.1)
[2023-12-25 13:26] LABS: Vitamin D,25 Hydroxy 38.2 ng/mL
== END 2023-12-25 18:00 | disposition home or self-care (01) ==
LOC: MTLAB 10:17
PROVIDERS: PCP Family Medicine; Referring Provider Nurse Practitioner Family; Visit Provider Nurse Practitioner Family
DX: I48.0 Paroxysmal atrial fibrillation (principal); Z79.01 Long term (current) use of anticoagulants; N18.31 Chronic kidney disease, stage 3a; R20.2 Paresthesia of skin
CPT/HCPCS: 36415; 80053; 82043; 82306; 82570; 83970; 85025; 85610

== ENCOUNTER → 2023-12-28 | Outpatient (CLI) | payer MEDICARE, SELFPAY ==
[2023-12-28 16:12] LABS: Vitamin D,25 Hydroxy 37.8 ng/mL
[2023-12-28 16:16] LABS: AST(SGOT) 23 U/L (15-37); Alanine Aminotransfer ALT/SGPT 16 U/L (16-61); Albumin, Serum 3.6 g/dL (3.2-5.0); Alkaline Phosphatase 96 U/L (45-117); Anion Gap 9 (5-15); BUN 35 mg/dL (7-18); BUN/Creat Ratio 20.8 RATIO (10-20); Calcium,Total 9.3 mg/dL (8.5-10.1); Chloride 106 mmol/L (98-107); Creatinine, Serum 1.68 mg/dL (0.70-1.30); EST Glomerular Filtration Rate 42 mL/min (>60); Est Glom Filt Rate - Afr Amer 51 mL/min (>60); Globulin 3.7 g/dL (2.2-4.2); Glucose 97 mg/dL (74-106); Potassium 4.3 mmol/L (3.5-5.1); Protein, Total 7.3 g/dL (6.4-8.2); Sodium Level 141 mmol/L (136-145)
== END | disposition home or self-care (01) ==
LOC: MTLAB 11:30
PROVIDERS: PCP Family Medicine; Referring Provider Internal Medicine Endocrinology, Diabetes & Metabolism; Visit Provider Internal Medicine Endocrinology, Diabetes & Metabolism
DX: E04.2 Nontoxic multinodular goiter (principal); E55.9 Vitamin D deficiency, unspecified
CPT/HCPCS: 36415; 80053; 82306; 84443

== ENCOUNTER → 2024-01-03 | Outpatient (CLI) | payer MEDICARE, SELFPAY ==
--- NOTE | 2024-01-03 09:05 | BI_ITS ---
MAMMOGRAPHY - BILATERAL DIAGNOSTIC REASON FOR EXAM: Male, 78 years old. Left breast lump. PERTINENT HISTORY: Non-contributory. TECHNIQUE: Digital bilateral breast margarita (3D mammographic acquisition) in the CC and MLO projections. 2-D mediolateral oblique (MLO) and craniocaudad (CC) views of both breasts were obtained. CAD: Full Field Digital Mammography with Computer Added Detection was performed. COMPARISON: None. Baseline examination. FINDINGS: Breast Composition: The breasts are almost entirely fatty. There are no dominant masses or suspicious calcifications. No other significant abnormalities are identified. BI/DIAG MAMM W/CAD, BILAT IMPRESSION: Negative diagnostic mammogram. With the patient''s history of a palpable lump in the upper lateral aspect of the left breast, correlation with ultrasound is recommended. ASSESSMENT CATEGORY: BIRADS Category 0: Incomplete. Need additional imaging evaluation. A letter regarding these results will be sent to the patient by the facility within 30 days. Approximately 10% of breast cancers are not detected by mammography. A normal mammogram should not delay biopsy of a clinically suspicious abnormality. Electronically Signed: Esvin Sosa MD at 9:56 EDT ,
--- NOTE | 2024-01-03 09:06 | US_ITS ---
STUDY: ULTRASOUND BREAST - LEFT REASON FOR EXAM: Male, 78 years old. Palpable lump left breast. TECHNIQUE: Axial and longitudinal images of the LEFT breast were performed with a high resolution ultrasound transducer. # OF IMAGES: 10 COMPARISON: Comparison is made with prior mammogram done earlier in the day. FINDINGS: LEFT Breast: The lateral portion of the left breast was examined with ultrasound. No sonographic abnormality is seen. US/Breast Limited Unilateral IMPRESSION: No sonographic abnormality is seen. ASSESSMENT CATEGORY: BIRADS Category 1: Negative. A letter regarding these results will be sent to the patient by the facility within 30 days. Electronically Signed: Esvin Sosa MD at 12:51 EDT ,
== END | disposition home or self-care (01) ==
PROVIDERS: PCP Family Medicine; Referring Provider Family Medicine; Visit Provider Family Medicine
DX: N63.24 Unspecified lump in the left breast, lower inner quadrant (principal)
CPT/HCPCS: 76642; 77062; 77066; G0279

== ENCOUNTER → 2024-01-22 | Outpatient (CLI) | payer MEDICARE, SELFPAY ==
[2024-01-22 11:43] LABS: PSA,Total - Annual Screen 1.49 ng/mL (0.00-4.00)
== END | disposition home or self-care (01) ==
LOC: LAB 10:49
PROVIDERS: PCP Family Medicine; Referring Provider Urology; Visit Provider Urology
DX: Z12.5 Encounter for screening for malignant neoplasm of prostate (principal)
CPT/HCPCS: 36415; 84153; G0103

== ENCOUNTER 2024-02-06 08:28 | Outpatient (RCR) | payer MEDICARE, SELFPAY ==
[2024-01-15 13:48] LABS: International Normalized Ratio 2.7; Prothrombin Time (Protime)PT. 28.5 SECONDS (11.7-14.9)
[2024-02-06 10:23] LABS: International Normalized Ratio 1.9; Prothrombin Time (Protime)PT. 21.8 SECONDS (11.7-14.9)
[2024-02-06 10:45] LABS: AST(SGOT) 18 U/L (15-37); Alanine Aminotransfer ALT/SGPT 16 U/L (16-61); Albumin, Serum 3.5 g/dL (3.2-5.0); Alkaline Phosphatase 97 U/L (45-117); Bilirubin, Direct 0.21 mg/dL (0.00-0.30); Globulin 3.5 g/dL (2.2-4.2)
[2024-02-06 10:58] LABS: ALB/GLOB Ratio 0.9 RATIO (0.9-2.4); AST(SGOT) 19 U/L (15-37); Alanine Aminotransfer ALT/SGPT 19 U/L (16-61); Albumin, Serum 3.4 g/dL (3.2-5.0); Alkaline Phosphatase 95 U/L (45-117); Anion Gap 4 (5-15); BUN 25 mg/dL (7-18); BUN/Creat Ratio 15.9 RATIO (10-20); Calcium,Total 9.2 mg/dL (8.5-10.1); Chloride 109 mmol/L (98-107); Cholesterol 123 mg/dL (200); Creatinine, Serum 1.57 mg/dL (0.70-1.30); EST Glomerular Filtration Rate 46 mL/min (>60); Est Glom Filt Rate - Afr Amer 55 mL/min (>60); Globulin 3.7 g/dL (2.2-4.2); Glucose 111 mg/dL (74-106); High Density Lipoprotein 43 mg/dL; Potassium 4.5 mmol/L (3.5-5.1); Protein, Total 7.1 g/dL (6.4-8.2); Sodium Level 141 mmol/L (136-145); Triglycerides 121 mg/dL; Very Low Density Lipoprotein 24 mg/dL (5-40)
== END 2024-02-13 18:00 | disposition home or self-care (01) ==
LOC: MTLAB 08:28
PROVIDERS: Internal Medicine Cardiovascular Disease; PCP Family Medicine; Referring Provider Nurse Practitioner Family; Visit Provider Nurse Practitioner Family
DX: I48.0 Paroxysmal atrial fibrillation (principal); I10 Essential (primary) hypertension; I25.10 Atherosclerotic heart disease of native coronary artery without angina pectoris; E78.00 Pure hypercholesterolemia, unspecified; I77.9 Disorder of arteries and arterioles, unspecified; Z79.01 Long term (current) use of anticoagulants
CPT/HCPCS: 36415; 80053; 80061; 80076; 85610

== ENCOUNTER 2024-03-13 11:16 | Outpatient (RCR) | payer MEDICARE, SELFPAY ==
[2024-02-21 15:03] LABS: International Normalized Ratio 1.4; Prothrombin Time (Protime)PT. 16.9 SECONDS (11.7-14.9)
[2024-02-28 12:18] LABS: International Normalized Ratio 1.9; Prothrombin Time (Protime)PT. 22.1 SECONDS (11.7-14.9)
[2024-03-13 12:41] LABS: International Normalized Ratio 2.8; Prothrombin Time (Protime)PT. 29.1 SECONDS (11.7-14.9)
== END 2024-03-13 18:00 | disposition home or self-care (01) ==
LOC: MTLAB 11:16
PROVIDERS: PCP Family Medicine; Referring Provider Nurse Practitioner Family; Visit Provider Nurse Practitioner Family
DX: I48.0 Paroxysmal atrial fibrillation (principal); I10 Essential (primary) hypertension; Z79.01 Long term (current) use of anticoagulants
CPT/HCPCS: 36415; 85610

== ENCOUNTER 2024-03-27 08:59 | Outpatient (RCR) | payer MEDICARE, SELFPAY ==
[2024-03-27 10:38] LABS: International Normalized Ratio 2.7; Prothrombin Time (Protime)PT. 28.7 SECONDS (11.7-14.9)
== END 2024-03-27 18:00 | disposition home or self-care (01) ==
LOC: MTLAB 08:59
PROVIDERS: PCP Family Medicine; Referring Provider Nurse Practitioner Family; Visit Provider Nurse Practitioner Family
DX: I48.0 Paroxysmal atrial fibrillation (principal); Z79.01 Long term (current) use of anticoagulants
CPT/HCPCS: 36415; 85610

== ENCOUNTER 2024-05-15 11:11 | Outpatient (RCR) | payer MEDICARE, SELFPAY ==
[2024-04-17 10:13] LABS: International Normalized Ratio 2.5; Prothrombin Time (Protime)PT. 27.1 SECONDS (11.7-14.9)
[2024-05-15 12:28] LABS: International Normalized Ratio 2.6; Prothrombin Time (Protime)PT. 27.5 SECONDS (11.7-14.9)
== END 2024-05-15 18:00 | disposition home or self-care (01) ==
LOC: MTLAB 11:11
PROVIDERS: PCP Family Medicine; Referring Provider Nurse Practitioner Family; Visit Provider Nurse Practitioner Family
DX: I48.0 Paroxysmal atrial fibrillation (principal); Z79.01 Long term (current) use of anticoagulants
CPT/HCPCS: 36415; 85610

== ENCOUNTER → 2024-05-21 | Outpatient (CLI) | payer MEDICARE, SELFPAY ==
[2024-05-21 12:39] LABS: Vitamin D,25 Hydroxy 36.7 ng/mL
[2024-05-21 12:54] LABS: ALB/GLOB Ratio 0.9 RATIO (0.9-2.4); AST(SGOT) 17 U/L (15-37); Alanine Aminotransfer ALT/SGPT 18 U/L (16-61); Albumin, Serum 3.3 g/dL (3.2-5.0); Alkaline Phosphatase 100 U/L (45-117); Anion Gap 4 (5-15); BUN 26 mg/dL (7-18); BUN/Creat Ratio 16.6 RATIO (10-20); Chloride 109 mmol/L (98-107); Creatinine, Serum 1.57 mg/dL (0.70-1.30); EST Glomerular Filtration Rate 46 mL/min (>60); Est Glom Filt Rate - Afr Amer 55 mL/min (>60); Globulin 3.6 g/dL (2.2-4.2); Glucose 104 mg/dL (74-106); Potassium 4.4 mmol/L (3.5-5.1); Protein, Total 6.9 g/dL (6.4-8.2); Sodium Level 139 mmol/L (136-145)
== END | disposition home or self-care (01) ==
LOC: MTLAB 09:47
PROVIDERS: PCP Family Medicine; Referring Provider Internal Medicine Endocrinology, Diabetes & Metabolism; Visit Provider Internal Medicine Endocrinology, Diabetes & Metabolism
DX: E04.2 Nontoxic multinodular goiter (principal); E55.9 Vitamin D deficiency, unspecified
CPT/HCPCS: 36415; 80053; 82306; 84443

== ENCOUNTER 2024-06-10 11:06 | Outpatient (RCR) | payer MEDICARE, SELFPAY ==
[2024-06-10 12:33] LABS: International Normalized Ratio 2.7; Prothrombin Time (Protime)PT. 28.2 SECONDS (11.7-14.9)
== END 2024-06-14 18:00 | disposition home or self-care (01) ==
LOC: MTLAB 11:06
PROVIDERS: PCP Family Medicine; Referring Provider Nurse Practitioner Family; Visit Provider Nurse Practitioner Family
DX: I48.0 Paroxysmal atrial fibrillation (principal); Z79.01 Long term (current) use of anticoagulants
CPT/HCPCS: 36415; 85610

== ENCOUNTER → 2024-07-04 | Outpatient (CLI) | payer MEDICARE, SELFPAY ==
--- NOTE | 2024-07-04 09:28 | CDU_ITS ---
Reason For Study: Carotid Stenosis Rt. Velocities/BP Lt. Velocities/BP Prox CCA 92/16 cm/sec. Prox CCA 126/32 cm/sec. Mid CCA 116/26 cm/sec. Mid CCA 131/28 cm/sec. Dist CCA 94/17 cm/sec. Dist CCA 83/16 cm/sec. Prox ICA 85/18 cm/sec. Prox ICA 180/33 cm/sec. Mid ICA 63/15 cm/sec. Mid ICA 146/26 cm/sec. Dist ICA 110/26 cm/sec. Dist ICA 123/23 cm/sec. Rt. ICA/CCA = 0.9. Lt. ICA/CCA = 1.4. Prox ECA 125/14 cm/sec. Prox ECA 238/14 cm/sec. Rt. Vert. 103/25 cm/sec. Lt. Vert. 47/6 cm/sec. Right Extracranial There is heterogeneous, irregular atherosclerotic plaque noted in the right common carotid artery. There is heterogeneous, irregular atherosclerotic plaque noted in the right internal carotid artery. The atherosclerotic plaque causes acoustic shadowing. There is heterogeneous, irregular atherosclerotic plaque noted in the right external carotid artery. Antegrade flow is noted in the right vertebral artery. Left Extracranial There is heterogeneous, irregular atherosclerotic plaque noted in the left common carotid artery. There is heterogeneous, irregular atherosclerotic plaque noted in the left internal carotid artery. There is heterogeneous, irregular atherosclerotic plaque noted in the left external carotid artery. Antegrade flow is noted in the left vertebral artery. Procedure Carotid Duplex [id number]. This is a Carotid Duplex examination using B-mode, color flow and specral Doppler. Enlarged, heterogeneous thyroid noted. Exam performed in department. VL/Carotid Duplex Ultrasound Interpretation Summary Mild (<50%) stenosis right extracranial internal carotid. Moderate (50-69%) stenosis left extracranial internal carotid. Patent and antegrade vertebrals bilaterally. Ordering Physician: Jae Elizalde Referring Physician: Jae Wright Performed By: Nora Ch, RDCS, RVT
== END | disposition home or self-care (01) ==
LOC: CVS 09:28
PROVIDERS: PCP Family Medicine; Referring Provider Surgery Trauma Surgery; Visit Provider Surgery Trauma Surgery
DX: I65.23 Occlusion and stenosis of bilateral carotid arteries (principal)
CPT/HCPCS: 93880

== ENCOUNTER 2024-07-14 09:34 | Outpatient (RCR) | payer MEDICARE, SELFPAY ==
[2024-07-14 12:53] LABS: AST(SGOT) 17 U/L (15-37); Alanine Aminotransfer ALT/SGPT 21 U/L (16-61); Albumin, Serum 3.6 g/dL (3.2-5.0); Alkaline Phosphatase 107 U/L (45-117); Bilirubin, Direct 0.17 mg/dL (0.00-0.30); Cholesterol 143 mg/dL (200); Globulin 3.7 g/dL (2.2-4.2); High Density Lipoprotein 51 mg/dL; Protein, Total 7.3 g/dL (6.4-8.2); Triglycerides 119 mg/dL; Very Low Density Lipoprotein 24 mg/dL (5-40)
[2024-07-14 14:26] LABS: International Normalized Ratio 2.3
== END 2024-07-14 18:00 | disposition home or self-care (01) ==
LOC: MTLAB 09:34
PROVIDERS: PCP Family Medicine; Referring Provider Nurse Practitioner Family; Visit Provider Nurse Practitioner Family
DX: I48.0 Paroxysmal atrial fibrillation (principal); I10 Essential (primary) hypertension; Z79.01 Long term (current) use of anticoagulants
CPT/HCPCS: 36415; 80061; 80076; 85610

== ENCOUNTER 2024-08-11 10:02 | Outpatient (RCR) | payer MEDICARE, SELFPAY ==
[2024-08-11 10:49] LABS: International Normalized Ratio 2.2
== END 2024-08-11 18:00 | disposition home or self-care (01) ==
LOC: MTLAB 10:02
PROVIDERS: PCP Family Medicine; Referring Provider Nurse Practitioner Family; Visit Provider Nurse Practitioner Family
DX: I48.0 Paroxysmal atrial fibrillation (principal); I10 Essential (primary) hypertension; Z79.01 Long term (current) use of anticoagulants

== ENCOUNTER 2024-09-11 11:11 | Outpatient (RCR) | payer MEDICARE, SELFPAY ==
[2024-09-11 12:38] LABS: International Normalized Ratio 3.2; Prothrombin Time (Protime)PT. 33.2 SECONDS (11.7-14.9)
== END 2024-09-12 18:00 | disposition home or self-care (01) ==
LOC: MTLAB 11:11
PROVIDERS: PCP Family Medicine; Referring Provider Nurse Practitioner Family; Visit Provider Nurse Practitioner Family
DX: I48.0 Paroxysmal atrial fibrillation (principal); I10 Essential (primary) hypertension; Z79.01 Long term (current) use of anticoagulants
CPT/HCPCS: 36415; 85610

== ENCOUNTER → 2024-10-22 | Outpatient (CLI) | payer MEDICARE, SELFPAY ==
[2024-10-22 15:59] LABS: ALB/GLOB Ratio 1.3 RATIO (0.9-2.4); AST(SGOT) 21 U/L (<=37); Alanine Aminotransfer ALT/SGPT 12 U/L (<=46); Alkaline Phosphatase 113 U/L (40-129); Anion Gap 12 (5-15); BUN 27 mg/dL (4-19); BUN/Creat Ratio 18.1 RATIO (10-20); Calcium,Total 9.4 mg/dL (7.6-11.0); Carbon Dioxide 22.2 mmol/L (21.0-32.0); Chloride 103 mmol/L (98-108); Creatinine, Serum 1.51 mg/dL (0.70-1.20); EST Glomerular Filtration Rate 47 (>60); Globulin 3.1 g/dL (2.2-4.2); Glucose 105 mg/dL (70-99); Potassium 4.6 mmol/L (3.3-5.1); Protein, Total 7.1 g/dL (5.9-8.4); Sodium Level 138 mmol/L (133-145); Thyroid Stim Hormone (TSH) 0.618 uIU/mL (0.300-4.200); Total Bilirubin 0.43 mg/dL (0.00-1.30)
== END | disposition home or self-care (01) ==
LOC: MTLAB 09:36
PROVIDERS: PCP Family Medicine; Referring Provider Family Medicine; Visit Provider Internal Medicine Endocrinology, Diabetes & Metabolism
DX: E04.2 Nontoxic multinodular goiter (principal)
CPT/HCPCS: 36415; 80053; 84443

== ENCOUNTER 2024-11-11 10:03 | Outpatient (RCR) | payer MEDICARE, SELFPAY ==
[2024-11-11 12:37] LABS: Absolute Lymphocyte Count 1.17 X10^3/uL (0.83-4.51); Absolute Neutrophil Count 4.7 X10^3/uL (2.0-7.7); Basophil# 0.09 X10^3/uL; Basophil% 1.3 % (0-1); Eosinophil# 0.17 X10^3/uL; Eosinophils% 2.4 % (0-5); Hematocrit 43.4 % (40-54); Lymphocyte # 1.17 X10^3/ul (0.83-4.51); Lymphocyte % 16.3 % (19-41); Mean Corp Hgb Conc 32.3 g/dL (32-36); Mean Corpuscular Volume 92.9 fL (80-94); Mean Platelet Vol. 10.6 fl (6.2-12.0); Monocyte# 0.96 X10^3/uL; Monocyte% 13.4 % (0-10); NRBC Flagged by Analyzer 0 % (0-5); Neutrophil # 4.74 X10^3/uL (2.7-7.7); Neutrophil % 66.2 % (47-70); Platelet Count 215 K/mm3 (150-450); RBC Distribution Width CV 15.2 % (11.6-14.6); RBC Distribution Width SD 51.8 fl (35.1-43.9); Red Blood Count 4.67 M/mm3 (4.6-6.2); White Blood Count 7.2 K/mm3 (4.4-11.0)
[2024-11-11 12:45] LABS: International Normalized Ratio 2.6; Prothrombin Time (Protime)PT. 28.7 SECONDS (11.7-14.9)
[2024-11-11 13:34] LABS: PSA,Total - Annual Screen 1.78 ng/mL (0.02-4.00); Vitamin B12 2707 pg/mL (180-914)
[2024-11-11 16:05] LABS: Microalbumin,Random Urine 21.1 mg/L (NO RANGE EST.); Microalbumin:Creatinine Ratio 102.4 mg/g CRE
== END 2024-11-12 18:00 | disposition home or self-care (01) ==
LOC: MTLAB 10:03
PROVIDERS: PCP Family Medicine; Referring Provider Nurse Practitioner Family; Visit Provider Nurse Practitioner Family
DX: I48.0 Paroxysmal atrial fibrillation (principal); I10 Essential (primary) hypertension; Z79.01 Long term (current) use of anticoagulants; Z12.5 Encounter for screening for malignant neoplasm of prostate; E53.8 Deficiency of other specified B group vitamins
CPT/HCPCS: 36415; 82043; 82570; 82607; 82746; 84153; 85025; 85610; G0103

== ENCOUNTER → 2024-12-05 | Outpatient (CLI) | payer MEDICARE, SELFPAY ==
[2024-12-05 12:35] LABS: Hemoglobin A1c 6.6 % (<=5.6)
== END | disposition home or self-care (01) ==
LOC: MFPLAB 10:20
PROVIDERS: PCP Family Medicine; Referring Provider Family Medicine; Visit Provider Family Medicine
DX: I10 Essential (primary) hypertension (principal)
CPT/HCPCS: 36415; 83036

== ENCOUNTER 2024-12-11 11:07 | Outpatient (RCR) | payer MEDICARE, SELFPAY ==
[2024-12-11 13:37] LABS: International Normalized Ratio 2.8; Prothrombin Time (Protime)PT. 30.4 SECONDS (11.7-14.9)
== END 2024-12-11 18:00 | disposition home or self-care (01) ==
LOC: MTLAB 11:07
PROVIDERS: PCP Family Medicine; Referring Provider Nurse Practitioner Family; Visit Provider Nurse Practitioner Family
DX: I48.0 Paroxysmal atrial fibrillation (principal)
CPT/HCPCS: 36415; 85610

== ENCOUNTER → 2025-01-29 | Outpatient (CLI) | payer MEDICARE, SELFPAY ==
[2025-01-29 16:56] LABS: AST(SGOT) 20 U/L (<=37); Alanine Aminotransfer ALT/SGPT 13 U/L (<=46); Albumin, Serum 4.0 g/dL (3.4-4.8); Alkaline Phosphatase 100 U/L (40-129); Anion Gap 10 (5-15); BUN 27 mg/dL (4-19); BUN/Creat Ratio 18.4 RATIO (10-20); Calcium,Total 9.7 mg/dL (7.6-11.0); Carbon Dioxide 25.7 mmol/L (21.0-32.0); Chloride 103 mmol/L (98-108); Globulin 2.8 g/dL (2.2-4.2); Glucose 94 mg/dL (70-99); Magnesium 2.2 mg/dL (1.5-2.2); Potassium 4.4 mmol/L (3.3-5.1); Vitamin D,25 Hydroxy 52.0 ng/mL (30-100)
== END | disposition home or self-care (01) ==
LOC: MTLAB 10:27
PROVIDERS: PCP Family Medicine; Referring Provider Nurse Practitioner Adult Health; Visit Provider Nurse Practitioner Adult Health
DX: E04.2 Nontoxic multinodular goiter (principal); E61.2 Magnesium deficiency; E55.9 Vitamin D deficiency, unspecified
CPT/HCPCS: 36415; 80053; 82306; 83735; 84443

== ENCOUNTER 2025-02-12 10:18 | Outpatient (RCR) | payer MEDICARE, SELFPAY ==
[2025-01-13 16:17] LABS: Prothrombin Time (Protime)PT. 28.0 SECONDS (11.7-14.9)
[2025-02-12 12:39] LABS: Prothrombin Time (Protime)PT. 26.7 SECONDS (11.7-14.9)
== END 2025-02-12 18:00 | disposition home or self-care (01) ==
LOC: MTLAB 10:18
PROVIDERS: PCP Family Medicine; Referring Provider Internal Medicine Cardiovascular Disease; Visit Provider Internal Medicine Cardiovascular Disease
DX: Z79.01 Long term (current) use of anticoagulants
CPT/HCPCS: 36415; 85610

== ENCOUNTER 2025-03-11 09:51 | Outpatient (RCR) | payer MEDICARE, SELFPAY ==
[2025-03-11 12:38] LABS: Prothrombin Time (Protime)PT. 29.8 SECONDS (11.7-14.9)
== END 2025-03-11 18:00 | disposition home or self-care (01) ==
LOC: MTLAB 09:51
PROVIDERS: PCP Family Medicine; Referring Provider Internal Medicine Cardiovascular Disease; Visit Provider Internal Medicine Cardiovascular Disease
DX: Z79.01 Long term (current) use of anticoagulants
CPT/HCPCS: 36415; 85610

== ENCOUNTER 2025-03-20 09:31 | Outpatient (RCR) | payer MEDICARE, SELFPAY ==
[2025-03-20 13:04] LABS: Prothrombin Time (Protime)PT. 29.9 SECONDS (11.7-14.9)
== END 2025-04-14 18:00 | disposition home or self-care (01) ==
LOC: MTLAB 09:31
PROVIDERS: PCP Family Medicine; Referring Provider Internal Medicine Cardiovascular Disease; Visit Provider Internal Medicine Cardiovascular Disease
DX: Z79.01 Long term (current) use of anticoagulants
CPT/HCPCS: 36415; 85610

== ENCOUNTER → 2025-04-14 | Outpatient (CLI) | payer MEDICARE, SELFPAY ==
--- OUTSIDE RECORDS SUMMARY | 2025-03-13 09:35 | XMS RPT_ITS ---
Author Name Auto Generated Organization OH[facility] Care Team Providers Care Carton Folder Name Role Phone CALLUM LANCE Attending Unavailable KEIRY WRIGHT Primary Care Unavailable DEBBIE SRINIVASAN Referring Unavail able YULISA KLEIN Attending Unavailable KEIRY WRIGHT Primary Care Unavailable YULISA KLEIN Admitting Unavailable KEIRY WRIGHT Primary Care Unavailable YULISA KLEIN Referring Unavailable YULISA KLEIN Attending Unavailable KEIRY WRIGHT Primary Care Unavailable YULISA KLEIN Referring Unavailable YULISA KLEIN Admitting Unavailable KEIRY WRIGHT Primary Care Unavailable PROBLEMS DATE TYPE CONDITION / CODE ATTENDING STATUS [facility] 03/11/2025 Active Warfarin anticoagulation / Z79.01(ICD-10) CALLUM LANCE Active [facility] 08/12/2020 Active Status post liga tion of left atrial appendage / Z98.890(ICD-10) CALLUM LANCE Active [facility] 02/24/2020 Active Persistent atria l fibrillation (HCC) / I48.19(ICD-10) CALLUM LANCE [facility] 02/24/2020 Active Obstructive slee p apnea / G47.33(ICD-10) [facility] 02/24/2020 Active Anticoagulant long-term use / Z79.01(ICD-10) [facility] 11/19/2019 Active Status post cath eter ablation of atrial flutter / Z98.890(ICD-10) [facility] 11/19/2019 Active Status post cath eter ablation of atrial fibrillation / Z98.890(ICD-10) [facility] 11/19/2019 Active At risk for stro ke / Z91.89(ICD-10) [facility] 11/19/2019 Active Presence of sten t in coronary artery / Z95.5(ICD-10) [facility] 11/19/2019 Active Nonrheumatic aor tic valve stenosis / I35.0(ICD-10) [facility] 11/19/2019 Active Essential (prima ry) hypertension / I10(ICD-10) [facility] 03/08/2018 Active Coronary artery disease involving augustine coronary artery of augustine heart without angina pectoris / I25.10(ICD-10) [facility] 03/08/2018 Active S/P CABG x 3 / Z95.1(ICD-10) [facility] 03/13/2025 Active Microscopic mac turia / R31.29(ICD-10) [facility] 01/05/2025 Admitting diagnosis Pain, unspecified / R52(ICD-10) NA [facility] 01/05/2025 Admitting diagnosis Pain / UNK(Unknown) YULISA KLEIN [facility] PROCEDURES No Procedure Records Found RESULTS PROGRESS Observed: 03/13/2025 10:00 AM Status: COMPLETED Source: [facility] HNO ID: [id number] Author: CALLUM LANCE MD Service: ? Author Type: Physician Type: Progress Notes Filed: 03/13/2025 13:01 Note Text: PRIMARY CARE PHYSICIAN: Keiry Wright ([facility]) [address] [place] [address] Patient Care Team: Keiry Wright MD as PCP - General (Family Medicine) Nicolas Rojo DO as Specialty Child Care Development Specialist (Endocrinology) Yusef Gomes as Specialty Child Care Development Specialist (Orthopedics) Dao Manzo MD as Specialty Child Care Development Specialist (Urology) Callum Lance MD as Specialty Child Care Development Specialist (Cardiology) Khoi Gong as Specialty Child Care Development Specialist (Internal Medicine) Debbie Srinivasan as Specialty Child Care Development Specialist (Cardiology) CHIEF COMPLAINT: Follow-up for arrhythmia HISTORY OF PRESENT ILLNESS: Mr. Joseph Hicks is a 79 year old male who presents today for a cardiovascular medicine follow-up visit. Recording using Travelmenu software for draft documentation of the visit was discussed with the patient/authorized dermatology sales representative; all questions welcomed and answered. Patient/authorized dermatology sales representative agreed to proceed Interim History Dr. Lance 03/13/2025: The patient is a 79-year-old male with a history of CAD, status post CABG and TOM closure, and recurrent AFib, presenting for follow-up. The patient reports feeling well overall, with no recent episodes of AFib. He notes improvement in symptoms since discontinuing metoprolol, which was stopped due to bradycardia (HR 47 bpm). He denies any bleeding issues from the bowel or bladder while on warfarin but mentions a history of microscopic hematuria detected by his urologist. He was previously on sotalol and flecainide, which were ineffective and caused side effects, including atrial flutter. He underwent an ablation in 11/2005 for atrial flutter and another in 03/2009 for recurrent AFib. Amiodarone was discontinued in 2015 due to concerns about pulmonary toxicity. He had a cardioversion in 07/2018, but AFib recurred immediately. A redo AFib catheter ablation was performed in 02/2020. He has a history of CAD, with a stent placed in 04/2013 and CABG with TOM closure using an AtriClip device in 02/2018. He also has NADINE and uses CPAP. He has a history of T2DM, with a recent A1c of 6.6%. He was prescribed metformin but discontinued it based on his embedded firmware developer's advice. He also stopped finasteride due to gastrointestinal side effects and is not taking alpha-lipoic acid prescribed for neuropathy. He is currently taking lisinopril 5 mg BID, HCTZ 25 mg daily, warfarin 6 mg daily with a recent INR of 2.8, aspirin 81 mg daily, pravastatin, magnesium, omeprazole 40 mg daily, tamsulosin, vitamin C, and Makayla as needed. I have confirmed and edited as necessary, [...] of CABG 02/2018 At risk for stroke [id number] = 3 (HTN, age, CAD) Atherosclerotic heart disease Beta-olga intolerance fatigue with metoprolol CAD (coronary artery [...] fibrillation 03/18/2009 AF catheter ablation/PVAI (RF) at [facility] Dr. Corrales 03/2009; redo AF catheter [...] VEIN ISOLATION 02/23/2020 redo AF catheter ablation/PVAI; [facility] Dr. Lance ARTHRP KNE CONDYLEANDPLATU MEDIALANDLAT COMPARTMENTS Bilateral 2013 Knee replacement, total 2012 2013 CABG (3) VEIN GRAFTS AND ARTERIAL GRAFT(S) 02/28/2018 CABG x 3 vessels: JUAREZ-LAD, SVG-OM, SVG-PDA; also with TOM clip (Atricure) CARDIAC CATH 12/10/2017 CARDIAC STRESS TEST 04/23/2018 CARDIOVERSION ELECTIVE ARRHYTHMIA INTERNAL SPX 10/2005 CARDIOVERSION ELECTIVE ARRHYTHMIA INTERNAL SPX 08/13/2018 successful spiritism of sinus rhythm; but atrial fibrillation recurred within about one day ECHO TRANSESOPHAG CONGEN PROBE [facility] IMGNG IANDR 12/27/2017 LVEF 65%; moderate LAE ECHOCARDIOGRAM 12/07/2017 normal LV systolic fxn; LVEF 60%; moderate LAE ECHOCARDIOGRAM 12/16/2019 [facility]; see scanned document ECHOCARDIOGRAM 05/06/2020 ELBOW SURGERY HX Right 07/2019 EPS: SVT ABLATION 12/01/2005 typical right atrial flutter circuit (cavotricuspid isthmus) RF catheter ablation; Dr. Vickie Wilcox [employer] MON[employer] 24 HRS 11/2019 patient states it showed persistent atrial fibrillation INSERT INTRACORONARY STENT 04/2013 PCI/stent to distal RCA NEUROPLASTY AND/TRANSPOS MEDIAN NRV CARPAL TUNNE Right 07/04/2005 REMV CATARACT EXTRACAP,INSERT LENS 2020 STRESS TEST NUCLEAR 12/01/2017 THORACENTESIS Left 03/08/2018 THYROIDECTOMY SUBTOTAL/PARTIAL 11/17/2002 right thyroid lobectomy SOCIAL HISTORY SOCIAL HISTORY[1] FAMILY HISTORY Problem Relation Age of Onset [...] Other: See Comments Ragweed Other: See Comments Kwirsph-Iuc-Tbu Red* Myalgia Trees Other: See Comments MEDICATIONS: omeprazole (PRILOSEC) 40 mg capsule Take 1 capsule by mouth once daily. lisinopril (ZESTRIL) 5 mg tablet Take 1 tablet by mouth every 12 hours. fexofenadine (MAKAYLA) 180 mg tablet Take 180 mg by mouth once daily as needed (allergy symptoms). warfarin (COUMADIN) 6 mg tablet ascorbic acid, [...] THE MORNING (FOR AT LEAST ONE MONTH) tamsulosin ER (FLOMAX) 0.4 mg cap Take 0.4 mg by mouth once daily. pravastatin (PRAVACHOL) 40 mg tablet Take 1 tablet by mouth daily at bedtime. magnesium oxide (MAG-OX) 400 mg tablet Take by mouth once daily. hydroCHLOROthiazide (HYDRODIURIL, ESIDRIX) 25 mg tablet Take 25 mg by mouth once daily. aspirin(ECOTRIN LOW STRENGTH 81 MG TAB) Take 81 mg by mouth once daily. Review of Systems Constitutional: Negative for chills, fever and weight loss. Respiratory: Negative for cough, hemoptysis, sputum production and shortness of breath. Cardiovascular: Negative for chest pain, palpitations, orthopnea and PND. Gastrointestinal: Negative for abdominal pain, blood in stool, melena, nausea and vomiting. Genitourinary: Positive for hematuria (microscopic he states). Musculoskeletal: Negative for falls. Skin: Negative for rash. Neurological: Negative for focal weakness, seizures and loss of consciousness. PHYSICAL EXAMINATION: BP 127/82 Pulse 54 Resp 16 Ht 5' 10 (1.78m) Wt 229 lb (103.9kg) SpO2 97% BMI 32.86 kg/(m2). Physical Exam Vitals reviewed. Constitutional: General: He is not in acute distress. HENT: Head: Normocephalic and atraumatic. Cardiovascular: Rate and Rhythm: Regular rhythm. Bradycardia present. Heart sounds: S1 normal and S2 normal. Murmur heard. Systolic murmur is present with a grade of 1/6. No friction rub. Pulmonary: Effort: Pulmonary effort is normal. No respiratory distress. Breath sounds: Normal breath sounds. No wheezing, rhonchi or rales. Musculoskeletal: Cervical back: Neck supple. Skin: General: Skin is warm and dry. Neurological: General: No focal deficit present. Mental Status: He is alert and oriented to person, place, and time. Psychiatric: Mood and Affect: Mood normal. Behavior: Behavior normal. Thought Content: Thought content normal. CARDIOVASCULAR MEDICINE TESTING: Electrocardiogram: Sinus bradycardia 53 bpm; first-degree AV block (NM 224 ms); normal QRS duration 90 ms; QTc 390 ms I have personally reviewed the Electrocardiogram. I spent a total of 20 minutes on the date of the service which included preparing to see the patient, [id number] patient care, completing clinical documentation, obtaining and/or reviewing separately obtained history, performing a medically appropriate examination, counseling and educating the patient/family/caregiver, ordering medications, tests, or procedures, communicating with other HCPs (not separately reported), independently interpreting results (not separately reported), communicating results to the patient/family/caregiver, and care coordination (not separately reported). 1. Persistent atrial fibrillation (HCC) - ICD9: 427.31, ICD10: I48.19 (primary diagnosis) 2. Status post catheter ablation of atrial fibrillation - ICD9: V45.89, ICD10: Z98.890 3. Status post catheter ablation of atrial flutter - ICD9: V45.89, ICD10: Z98.890 4. At risk for stroke - ICD9: V15.89, ICD10: Z91.89 5. Anticoagulant long-term use - ICD9: V58.61, ICD10: Z79.01 6. Warfarin anticoagulation - ICD9: V58.61, ICD10: Z79.01 7. Status post ligation of left atrial appendage - ICD9: V45.89, ICD10: Z98.890 8. Coronary artery disease involving augustine coronary artery of augustine heart without angina pectoris - ICD9: 414.01, ICD10: I25.10 9. S/P CABG x 3 - ICD9: V45.81, ICD10: Z95.1 10. Presence of stent in coronary artery - ICD9: V45.82, ICD10: Z95.5 11. Nonrheumatic aortic valve stenosis - ICD9: 424.1, ICD10: I35.0 12. Obstructive sleep apnea - ICD9: 327.23, ICD10: G47.33 13. Microscopic hematuria - ICD9: 599.72, ICD10: R31.29 14. Essential (primary) hypertension - ICD9: 401.9, ICD10: I10 CHADS2-Vasc Score Breakdown 5 Total Score 2 Age >= 75 years old 1 History of hypertension 1 History of diabetes mellitus 1 History of vascular disease IMPRESSION: 1. Persistent atrial fibrillation (HCC) (I48.19) 2. Status post catheter ablation of atrial fibrillation (Z98.890) 3. Status post catheter ablation of atrial flutter (Z98.890) 4. At risk for stroke (Z91.89) 5. Anticoagulant long-term use (Z79.01) 6. Warfarin anticoagulation (Z79.01) 7. Status post ligation of left atrial appendage (Z98.890) History of persistent AFib since 2005, with multiple ablations, most recently in February 2020. Prior antiarrhythmic therapies (sotalol, flecainide, propafenone, amiodarone) were ineffective or poorly tolerated. Patient is currently off metoprolol due to bradycardia and reports feeling well with no recent AFib episodes. On warfarin 6 mg daily with recent INR of 2.8; no visible bleeding reported, but microscopic hematuria noted by urology. - Continue warfarin 6 mg daily; maintain INR monitoring through clinic. - Continue lisinopril 5 mg BID, hydrochlorothiazide 25 mg daily, pravastatin, aspirin 81 mg daily, magnesium, omeprazole 40 mg daily, and tamsulosin as currently prescribed. - Educated patient on the importance of ongoing anticoagulation and regular INR monitoring. - Advised patient to report any visible bleeding or significant changes in urinary findings. - Follow-up in 1 year. 8. Coronary artery disease involving augustine coronary artery of augustine heart without angina pectoris (I25.10) 9. S/P CABG x 3 (Z95.1) 10. Presence of stent in coronary artery (Z95.5) History of CAD with stent placement in April 2013 and CABG x3 in February 2018; currently stable. - Continue current management. 11. Obstructive sleep apnea (G47.33) Patient is using CPAP. - Continue CPAP therapy. 12. Microscopic hematuria (R31.29) Microscopic hematuria noted by urology; no visible hematuria reported by patient. - Continue monitoring by urology. 13. Essential (primary) hypertension (I10) Blood pressure today 127/82; patient is on lisinopril 5 mg BID and hydrochlorothiazide 25 mg daily. - Continue current antihypertensive regimen. 14. Nonrheumatic aortic valve stenosis (I35.0) PLAN AND RECOMMENDATIONS: Continue with current plan of care from EP standpoint. I had a detailed discussion with Mr. Joseph Hicks regarding my evaluation and recommendations. After our discussion, Mr. Joseph Hicks expressed his understanding and I answered all his questions to his apparent satisfaction. Return in about 1 year (around 03/13/2026) for Dr. Lance Calhoun office. Callum Lance MD 03/13/2025 Medical Decision Making: Problems: Moderate: 2+ stable chronic illnesses Data: Unique test result(s) reviewed: 3+ Unique test(s) ordered: 1 Risk: Moderate: Moderate risk from testing/treatment and Drug management Medical Decision Making Level: 4 - Moderate [1] Social History Tobacco Use Smoking status: Former Types: Pipe Start date: 1964 Quit date: 01/03/1992 Years since quittin.2 Smokeless tobacco: Never Tobacco comments: smoked a pipe until 1991 Vaping Use Vaping status: Never Used Substance Use Topics Alcohol use: No Drug use: No CNOV Observed: 03/13/2025 10:00 AM Status: COMPLETED Source: [facility] Office Visit ([facility]) SEFERINO RUIZ JR ([id number]) 1945 [address] [facility] Date Time Provider Department 03/13/25 10:00 AM CALLUM LANCE During your visit today, we recorded the following information about you: Pulse Respiration Blood pressure Weight 54/minute 16/minute 127/82 103.9 kg Height 1.778 m Callum Lance MD 03/13/2025 1:01 PM Signed PRIMARY CARE PHYSICIAN: Keiry Wright ([facility]) [address] [place] [address] [address] [place] [address] Patient Care Team: Keiry Wright MD as PCP - General (Family Medicine) Nicolas Rojo DO as Specialty Child Care Development Specialist (Endocrinology) Yusef Gomes as Specialty Child Care Development Specialist (Orthopedics) Jovany, Dao Gracia MD as Specialty Child Care Development Specialist (Urology) Callum Lance MD as Specialty Child Care Development Specialist (Cardiology) Khoi Gong as Specialty Child Care Development Specialist (Internal Medicine) Debbie Srinivasan as Specialty Child Care Development Specialist (Cardiology) CHIEF COMPLAINT: Follow-up for arrhythmia HISTORY OF PRESENT ILLNESS: Mr. Joseph Hicks is a 79 year old male who presents today for a cardiovascular medicine follow-up visit. Recording using Travelmenu software for draft documentation of the visit was discussed with the patient/authorized dermatology sales representative; all questions welcomed and answered. Patient/authorized dermatology sales representative agreed to proceed Interim History Dr. Lance 03/13/2025: The patient is a 79-year-old male with a history of CAD, status post CABG and TOM closure, and recurrent AFib, presenting for follow-up. The patient reports feeling well overall, with no recent episodes of AFib. He notes improvement in symptoms since discontinuing metoprolol, which was stopped due to bradycardia (HR 47 bpm). He denies any bleeding issues from the bowel or bladder while on warfarin but mentions a history of microscopic hematuria detected by his urologist. He was previously on sotalol and flecainide, which were ineffective and caused side effects, including atrial flutter. He underwent an ablation in 11/2005 for atrial flutter and another in 03/2009 for recurrent AFib. Amiodarone was discontinued in 2015 due to concerns about pulmonary toxicity. He had a cardioversion in 07/2018, but AFib recurred immediately. A redo AFib catheter ablation was performed in 02/2020. He has a history of CAD, with a stent placed in 04/2013 and CABG with TOM closure using an AtriClip device in 02/2018. He also has NADINE and uses CPAP. He has a history of T2DM, with a recent A1c of 6.6%. He was prescribed metformin but discontinued it based on his embedded firmware developer's advice. He also stopped finasteride due to gastrointestinal side effects and is not taking alpha-lipoic acid prescribed for neuropathy. He is currently taking lisinopril 5 mg BID, HCTZ 25 mg daily, warfarin 6 mg daily with a recent INR of 2.8, aspirin 81 mg daily, pravastatin, magnesium, omeprazole 40 mg daily, tamsulosin, vitamin C, and Makayla as needed. I have confirmed and edited as necessary, [...] of CABG 02/2018 At risk for stroke [id number] = 3 (HTN, age, CAD) Atherosclerotic heart disease Beta-olga intolerance fatigue with metoprolol CAD (coronary artery [...] fibrillation 03/18/2009 AF catheter ablation/PVAI (RF) at [facility] Dr. Corrales 03/2009; redo AF catheter [...] VEIN ISOLATION 02/23/2020 redo AF catheter ablation/PVAI; [facility] Dr. Lance ARTHRP KNE CONDYLEANDPLATU MEDIALANDLAT COMPARTMENTS Bilateral 2013 Knee replacement, total 2012 2013 CABG (3) VEIN GRAFTS AND ARTERIAL GRAFT(S) 02/28/2018 CABG x 3 vessels: JUAREZ-LAD, SVG-OM, SVG-PDA; also with TOM clip (Atricure) CARDIAC CATH 12/10/2017 CARDIAC STRESS TEST 04/23/2018 CARDIOVERSION ELECTIVE ARRHYTHMIA INTERNAL SPX 10/2005 CARDIOVERSION ELECTIVE ARRHYTHMIA INTERNAL SPX 08/13/2018 successful spiritism of sinus rhythm; but atrial fibrillation recurred within about one day ECHO TRANSESOPHAG CONGEN PROBE [facility] IMGNG IANDR 12/27/2017 LVEF 65%; moderate LAE ECHOCARDIOGRAM 12/07/2017 normal LV systolic fxn; LVEF 60%; moderate LAE ECHOCARDIOGRAM 12/16/2019 [facility]; see scanned document ECHOCARDIOGRAM 05/06/2020 ELBOW SURGERY HX Right 07/2019 EPS: SVT ABLATION 12/01/2005 typical right atrial flutter circuit (cavotricuspid isthmus) RF catheter ablation; Dr. Vickie Wilcox HOLTER MONITOR 24 HRS 11/2019 patient states it showed persistent atrial fibrillation INSERT INTRACORONARY STENT 04/2013 PCI/stent to distal RCA NEUROPLASTY AND/TRANSPOS MEDIAN NRV CARPAL TUNNE Right 07/04/2005 REMV CATARACT EXTRACAP,INSERT LENS 2020 STRESS TEST NUCLEAR 12/01/2017 THORACENTESIS Left 03/08/2018 THYROIDECTOMY SUBTOTAL/PARTIAL 11/17/2002 right thyroid lobectomy SOCIAL HISTORY SOCIAL HISTORY[1] FAMILY HISTORY Problem Relation Age of Onset [...] Other: See Comments Ragweed Other: See Comments Gidzsgg-Tra-Sgv Red* Myalgia Trees Other: See Comments MEDICATIONS: omeprazole (PRILOSEC) 40 mg capsule Take 1 capsule by mouth once daily. lisinopril (ZESTRIL) 5 mg tablet Take 1 tablet by mouth every 12 hours. fexofenadine (MAKAYLA) 180 mg tablet Take 180 mg by mouth once daily as needed (allergy symptoms). warfarin (COUMADIN) 6 mg tablet ascorbic acid, [...] THE MORNING (FOR AT LEAST ONE MONTH) tamsulosin ER (FLOMAX) 0.4 mg cap Take 0.4 mg by mouth once daily. pravastatin (PRAVACHOL) 40 mg tablet Take 1 tablet by mouth daily at bedtime. magnesium oxide (MAG-OX) 400 mg tablet Take by mouth once daily. hydroCHLOROthiazide (HYDRODIURIL, ESIDRIX) 25 mg tablet Take 25 mg by mouth once daily. aspirin(ECOTRIN LOW STRENGTH 81 MG TAB) Take 81 mg by mouth once daily. Review of Systems Constitutional: Negative for chills, fever and weight loss. Respiratory: Negative for cough, hemoptysis, sputum production and shortness of breath. Cardiovascular: Negative for chest pain, palpitations, orthopnea and PND. Gastrointestinal: Negative for abdominal pain, blood in stool, melena, nausea and vomiting. Genitourinary: Positive for hematuria (microscopic he states). Musculoskeletal: Negative for falls. Skin: Negative for rash. Neurological: Negative for focal weakness, seizures and loss of consciousness. PHYSICAL EXAMINATION: BP 127/82 Pulse 54 Resp 16 Ht 5' 10 (1.78m) Wt 229 lb (103.9kg) SpO2 97% BMI 32.86 kg/(m2). Physical Exam Vitals reviewed. Constitutional: General: He is not in acute distress. HENT: Head: Normocephalic and atraumatic. Cardiovascular: Rate and Rhythm: Regular rhythm. Bradycardia present. Heart sounds: S1 normal and S2 normal. Murmur heard. Systolic murmur is present with a grade of 1/6. No friction rub. Pulmonary: Effort: Pulmonary effort is normal. No respiratory distress. Breath sounds: Normal breath sounds. No wheezing, rhonchi or rales. Musculoskeletal: Cervical back: Neck supple. Skin: General: Skin is warm and dry. Neurological: General: No focal deficit present. Mental Status: He is alert and oriented to person, place, and time. Psychiatric: Mood and Affect: Mood normal. Behavior: Behavior normal. Thought Content: Thought content normal. CARDIOVASCULAR MEDICINE TESTING: Electrocardiogram: Sinus bradycardia 53 bpm; first-degree AV block (NM 224 ms); normal QRS duration 90 ms; QTc 390 ms I have personally reviewed the Electrocardiogram. I spent a total of 20 minutes on the date of the service which included preparing to see the patient, [id number] patient care, completing clinical documentation, obtaining and/or reviewing separately obtained history, performing a medically appropriate examination, counseling and educating the patient/family/caregiver, ordering medications, tests, or procedures, communicating with other HCPs (not separately reported), independently interpreting results (not separately reported), communicating results to the patient/family/caregiver, and care coordination (not separately reported). 1. Persistent atrial fibrillation (HCC) - ICD9: 427.31, ICD10: I48.19 (primary diagnosis) 2. Status post catheter ablation of atrial fibrillation - ICD9: V45.89, ICD10: Z98.890 3. Status post catheter ablation of atrial flutter - ICD9: V45.89, ICD10: Z98.890 4. At risk for stroke - ICD9: V15.89, ICD10: Z91.89 5. Anticoagulant long-term use - ICD9: V58.61, ICD10: Z79.01 6. Warfarin anticoagulation - ICD9: V58.61, ICD10: Z79.01 7. Status post ligation of left atrial appendage - ICD9: V45.89, ICD10: Z98.890 8. Coronary artery disease involving augustine coronary artery of augustine heart without angina pectoris - ICD9: 414.01, ICD10: I25.10 9. S/P CABG x 3 - ICD9: V45.81, ICD10: Z95.1 10. Presence of stent in coronary artery - ICD9: V45.82, ICD10: Z95.5 11. Nonrheumatic aortic valve stenosis - ICD9: 424.1, ICD10: I35.0 12. Obstructive sleep apnea - ICD9: 327.23, ICD10: G47.33 13. Microscopic hematuria - ICD9: 599.72, ICD10: R31.29 14. Essential (primary) hypertension - ICD9: 401.9, ICD10: I10 CHADS2-Vasc Score Breakdown 5 Total Score 2 Age >= 75 years old 1 History of hypertension 1 History of diabetes mellitus 1 History of vascular disease IMPRESSION: 1. Persistent atrial fibrillation (HCC) (I48.19) 2. Status post catheter ablation of atrial fibrillation (Z98.890) 3. Status post catheter ablation of atrial flutter (Z98.890) 4. At risk for stroke (Z91.89) 5. Anticoagulant long-term use (Z79.01) 6. Warfarin anticoagulation (Z79.01) 7. Status post ligation of left atrial appendage (Z98.890) History of persistent AFib since 2005, with multiple ablations, most recently in February 2020. Prior antiarrhythmic therapies (sotalol, flecainide, propafenone, amiodarone) were ineffective or poorly tolerated. Patient is currently off metoprolol due to bradycardia and reports feeling well with no recent AFib episodes. On warfarin 6 mg daily with recent INR of 2.8; no visible bleeding reported, but microscopic hematuria noted by urology. - Continue warfarin 6 mg daily; maintain INR monitoring through clinic. - Continue lisinopril 5 mg BID, hydrochlorothiazide 25 mg daily, pravastatin, aspirin 81 mg daily, magnesium, omeprazole 40 mg daily, and tamsulosin as currently prescribed. - Educated patient on the importance of ongoing anticoagulation and regular INR monitoring. - Advised patient to report any visible bleeding or significant changes in urinary findings. - Follow-up in 1 year. 8. Coronary artery disease involving augustine coronary artery of augustine heart without angina pectoris (I25.10) 9. S/P CABG x 3 (Z95.1) 10. Presence of stent in coronary artery (Z95.5) History of CAD with stent placement in April 2013 and CABG x3 in February 2018; currently stable. - Continue current management. 11. Obstructive sleep apnea (G47.33) Patient is using CPAP. - Continue CPAP therapy. 12. Microscopic hematuria (R31.29) Microscopic hematuria noted by urology; no visible hematuria reported by patient. - Continue monitoring by urology. 13. Essential (primary) hypertension (I10) Blood pressure today 127/82; patient is on lisinopril 5 mg BID and hydrochlorothiazide 25 mg daily. - Continue current antihypertensive regimen. 14. Nonrheumatic aortic valve stenosis (I35.0) PLAN AND RECOMMENDATIONS: Continue with current plan of care from EP standpoint. I had a detailed discussion with Mr. Joseph Hicks regarding my evaluation and recommendations. After our discussion, Mr. Joseph Hicks expressed his understanding and I answered all his questions to his apparent satisfaction. Return in about 1 year (around 03/13/2026) for [facility] office. Callum Lance MD 03/13/2025 Medical Decision Making: Problems: Moderate: 2+ stable chronic illnesses Data: Unique test result(s) reviewed: 3+ Unique test(s) ordered: 1 Risk: Moderate: Moderate risk from testing/treatment and Drug management Medical Decision Making Level: 4 - Moderate [1] Social History Tobacco Use Smoking status: Former Types: Pipe Start date: 1964 Quit date: 01/03/1992 Years since quittin.2 Smokeless tobacco: Never Tobacco comments: smoked a pipe until 1991 Vaping Use Vaping status: Never Used Substance Use Topics Alcohol use: No Drug use: No Callum Lance MD 03/13/2025 10:47 AM Signed We discussed your heart health and medications: - You have a history of atrial fibrillation (AFib), coronary artery disease, and prior procedures including bypass surgery (February 2018), stent placement (April 2013), left atrial appendage closure, and multiple ablations (most recently in February 2020). - You are currently feeling well with no significant AFib symptoms or palpitations. - You are no longer taking metoprolol due to low heart rate (bradycardia), and you report feeling better off this medication. - Continue taking warfarin (Coumadin) as prescribed. Your INR was recently 2.8, which is within the target range. You do not need to make any changes to your warfarin dose at this time. - You are not experiencing any visible bleeding, but your urologist has noted microscopic blood in your urine. This will continue to be monitored. We reviewed your current medications: - Continue taking the following medications as prescribed: - Lisinopril 5 mg twice daily. - Hydrochlorothiazide 25 mg daily. - Omeprazole 40 mg daily. - Pravastatin as prescribed. - Tamsulosin (Flomax) as prescribed. - Aspirin 81 mg daily. - Magnesium and Vitamin C as needed. - Makayla as needed for allergies. - You are no longer taking the following medications: - Metoprolol (discontinued due to low heart rate). - Alpha lipoic acid (discontinued as you are not taking it for tingling feet). - Metformin (discontinued based on your embedded firmware developer?s recommendation due to your A1c of 6.6 and fasting glucose levels below 130). - Finasteride (discontinued due to stomach upset). We discussed your follow-up care: - Continue monitoring your heart health and symptoms. If you experience any new or worsening symptoms such as palpitations, chest pain, or significant bleeding, please contact our office immediately. - Your urologist will continue monitoring the microscopic blood in your urine. No further action is needed at this time unless symptoms change. - You will continue to see me annually for follow-up visits. No changes were made to your current care plan. Please continue with your current medications and follow-up as scheduled. Referring Provider: DEBBIE SRINIVASAN [[id number]] Allergies As of Date: 03/13/2025 Noted Allergy Reaction AMIODARONE (BULK) 01/02/2018 12 - Shortness of Breath Comments: Possibly pulmonary fibrosis BETA BLOCKERS (BETA-BLOCKERS (BET*11/21/2019 14 - Other: See Comments Comments: Fatigue with metoprolol GRASS POLLEN 04/23/2007 14 - Other: See Comments RAGWEED 04/23/2007 14 - Other: See Comments FPIUDDI-RIO-LHO REDUCTASE INHIBIT*04/18/2018 17 - Myalgia TREES 04/23/2007 14 - Other: See Comments Date Reviewed: 03/13/2025 Reviewed by: Callum Lance MD - Fully Assessed Reason for Visit: CARD Follow Up Annual [1232] Cmt: AFIB Primary Visit Diagnosis:Persistent atrial fibrillation (HCC) [I48.19] Other Visit Diagnoses:Status post catheter ablation of atrial fibrillation [Z98.890] Status post catheter ablation of atrial flutter [Z98.890] At risk for stroke [Z91.89] Anticoagulant long-term use [Z79.01] Warfarin anticoagulation [Z79.01] Status post ligation of left atrial appendage [Z98.890] Coronary artery disease involving augustine coronary artery of augustine heart without angina pectoris [I25.10] S/P CABG x 3 [Z95.1] Presence of stent in coronary artery [Z95.5] Nonrheumatic aortic valve stenosis [I35.0] Obstructive sleep apnea [G47.33] Microscopic hematuria [R31.29] Essential (primary) hypertension [I10] Order(s):ECG B/O W INTERP (MED OFFICE) [ECG06] Order #: [id number] Prescriptions as of 03/13/2025 - omeprazole (PRILOSEC) 40 mg capsule Take 1 capsule by mouth once daily. - lisinopril (ZESTRIL) 5 mg tablet Take 1 tablet by mouth every 12 hours. - fexofenadine (MAKAYLA) 180 mg tablet Take 180 mg by mouth once daily as needed (allergy symptoms). - warfarin (COUMADIN) 6 mg tablet - ascorbic acid, vitamin C, (VITAMIN C) 500 mg tablet Take 500 mg by mouth once daily. - albuterol HFA (PROVENTIL HFA, VENTOLIN HFA) 90 mcg/actuation inhaler INHALE 2 PUFFS BY MOUTH EVERY 4 HOURS NEEDED FOR COUGH OR SHORTNESS OF BREATH - fluticasone (FLONASE) 50 mcg/actuation nasal spray USE 1 SPRAY IN EACH NOSTRIL ONCE DAILY IN THE MORNING (FOR AT LEAST ONE MONTH) - tamsulosin ER (FLOMAX) 0.4 mg cap Take 0.4 mg by mouth once daily. - pravastatin (PRAVACHOL) 40 mg tablet Take 1 tablet by mouth daily at bedtime. - magnesium oxide (MAG-OX) 400 mg tablet Take by mouth once daily. - hydroCHLOROthiazide (HYDRODIURIL, ESIDRIX) 25 mg tablet Take 25 mg by mouth once daily. - aspirin(ECOTRIN LOW STRENGTH 81 MG TAB) Take 81 mg by mouth once daily. Problem List As Of Date 03/13/2025 Noted Resolved CARPAL TUNNEL SYNDROME [G56.00] 06/13/2005 NONTOX MULTINODUL GOITER [E04.2] 04/23/2007 CAD (coronary atherosclerotic disease) [I25.10] 02/12/2018 Paroxysmal atrial fibrillation (HCC) [I48.0] 02/12/2018 02/22/2020 CAD (coronary artery disease) [I25.10] 02/28/2018 S/P CABG x 3 [Z95.1] 02/28/2018 Atelectasis of left lung [J98.11] 02/12/2018 Essential hypertension, benign [I10] Persistent atrial fibrillation (HCC) [I48.19] 07/25/2018 Atrial flutter (HCC) [I48.92] 11/16/2010 Essential (primary) hypertension [I10] 11/12/2017 Coronary arteriosclerosis in augustine artery [I25*11/12/2017 Pulmonary fibrosis (HCC) [J84.10] 10/06/2014 Type 2 diabetes mellitus without complications *03/16/2017 Warfarin therapy started [Z79.01] 05/03/2016 Presence of aortocoronary bypass graft [Z95.1] 07/10/2018 Presence of stent in coronary artery [Z95.5] 11/19/2019 Nonrheumatic aortic valve stenosis [I35.0] 11/19/2019 Nephrolithiasis [N20.0] 11/19/2019 jail current use of anticoagulant therapy *11/19/2019 08/12/2020 Hyperlipidemia [E78.5] 11/16/2010 Hyperthyroidism [E05.90] 01/21/2014 Goiter [E04.9] 11/19/2019 Fatigue [R53.83] 04/03/2013 Shortness of breath [R06.02] 11/16/2010 Cervicalgia [M54.2] 01/03/2018 Anticoagulant long-term use [Z79.01] At risk for stroke [Z91.89] History of atrial flutter [Z86.79] Status post catheter ablation of atrial fibrill*03/2009 Status post catheter ablation of atrial flutter*12/01/2005 Obstructive sleep apnea [G47.33] Obesity, Class I, BMI 30-34.9 [E66.811] 02/23/2020 S/P ablation of atrial fibrillation [Z98.890, Z*02/24/2020 Status post ligation of left atrial appendage [* Bilateral carotid artery stenosis [I65.23] 09/07/2022 Diagnosed: 02/14/2023 Gastroesophageal reflux disease [K21.9] 02/08/2022 Diagnosed: 02/14/2023 Peripheral arterial occlusive disease (HCC) [I7*09/07/2022 Diagnosed: 02/14/2023 Warfarin anticoagulation [Z79.01] 03/11/2025 Other instructions from your clinician: We discussed your heart health and medications: - You have a history of atrial fibrillation (AFib), coronary artery disease, and prior procedures including bypass surgery (February 2018), stent placement (April 2013), left atrial appendage closure, and multiple ablations (most recently in February 2020). - You are currently feeling well with no significant AFib symptoms or palpitations. - You are no longer taking metoprolol due to low heart rate (bradycardia), and you report feeling better off this medication. - Continue taking warfarin (Coumadin) as prescribed. Your INR was recently 2.8, which is within the target range. You do not need to make any changes to your warfarin dose at this time. - You are not experiencing any visible bleeding, but your urologist has noted microscopic blood in your urine. This will continue to be monitored. We reviewed your current medications: - Continue taking the following medications as prescribed: - Lisinopril 5 mg twice daily. - Hydrochlorothiazide 25 mg daily. - Omeprazole 40 mg daily. - Pravastatin as prescribed. - Tamsulosin (Flomax) as prescribed. - Aspirin 81 mg daily. - Magnesium and Vitamin C as needed. - Makayla as needed for allergies. - You are no longer taking the following medications: - Metoprolol (discontinued due to low heart rate). - Alpha lipoic acid (discontinued as you are not taking it for tingling feet). - Metformin (discontinued based on your embedded firmware developer?s recommendation due to your A1c of 6.6 and fasting glucose levels below 130). - Finasteride (discontinued due to stomach upset). We discussed your follow-up care: - Continue monitoring your heart health and symptoms. If you experience any new or worsening symptoms such as palpitations, chest pain, or significant bleeding, please contact our office immediately. - Your urologist will continue monitoring the microscopic blood in your urine. No further action is needed at this time unless symptoms change. - You will continue to see me annually for follow-up visits. No changes were made to your current care plan. Please continue with your current medications and follow-up as scheduled. Medications Discontinued During This Encounter Prescriptions - lisinopril (ZESTRIL, PRINIVIL) 10 mg tablet (Discontinued) Take 5 mg by mouth once daily. - warfarin (COUMADIN) 5 mg tablet (Discontinued) Take 5 mg by mouth as directed. 6 mg daily except Sunday 8 mg - warfarin (COUMADIN) 2 mg tablet (Discontinued) Take 2 mg by mouth as directed. dose dependent on INR - warfarin (COUMADIN) 1 mg tablet (Discontinued) Take 1 mg by mouth as directed. - metoprolol succinate ER (TOPROL XL) 25 mg 24 hr tablet (Discontinued) Reported on 03/13/2025 - Alpha Lipoic Acid 600 mg cap (Discontinued) Take 1 capsule by mouth every 12 hours. - metFORMIN ER (GLUCOPHAGE XR) 500 mg 24 hr tablet (Discontinued) TAKE 1 TABLET BY MOUTH ONCE DAILY IN THE MORNING - finasteride (PROSCAR) 5 mg tablet (Discontinued) Take 1 tablet by mouth once daily. Level of Service: OFFICE/OUTPATIENT ESTABLISHED MOD MDM 30 MIN [34840] Additional E/M codes: VISIT CPLX INHERENT EANDM ASSOC WITH MED * Disposition: Return in about 1 year (around 03/13/2026) for [facility] office. Follow-up and Disposition History for Encounter Date Provider Department Center 03/13/2025 6105-CALLUM LANCE [facility]ARD[facility] Letter Text Encounter Status:Closed by CALLUM LANCE on 03/13/25 PROGRESS Observed: 01/21/2025 9:27 PM Status: COMPLETED Source: [facility] [address] [facility] [address] [facility] [id number] Seferino Ruiz returns to the office today for follow up on the right wrist and hand. I had tried an injection to the right wrist about two weeks ago for more ulnar sided pain with numbness and tingling. He had cubital tunnel release surgery years ago and really hadn't received complete relief. He is still having the numbness and tingling along with pain along the ulnar side of the wrist. The patient's past medical history, surgical history, social history, family history, medications and allergies were reviewed with the patient today and are available in the chart for further review. Allergies[1] Current Medications[2] Past Medical History: Diagnosis Date Atrial fibrillation (HCC) BPH (benign prostatic hyperplasia) BPH (benign prostatic hypertrophy) CAD (coronary artery disease) Constipation Hard of hearing High cholesterol Hypertension Hyperthyroidism Kidney stones Leg weakness Shortness of breath on exertion Tiredness Past Surgical History: Procedure Laterality Date ABLATION WITH PHENOL BACK SURGERY CABG cardiac open heart N/A CARDIAC SURGERY CARPAL TUNNEL RELEASE JOINT REPLACEMENT Bilateral Knees RELEASE CUBITAL TUNNEL Right 08/08/2019 Procedure: Right cubital tunnel release; Surgeon: Yusef Gomes MD; Location: [facility] [place]; Service: Orthopedic Social History[3] ROS: Review of Systems Musculoskeletal: Positive for arthralgias and myalgias. Neurological: Positive for weakness and numbness. Imaging: Cervical: There is straightening of the normal cervical lordosis. No instability is detected on flexion or extension.There is no acute osseous lesion or fracture. There is mild anterolisthesis of C2 on C3 and C3 on C4. Vertebral body heights are maintained. There is generalized loss of intervertebral disc height at the C3 through T1 levels. There are degenerative sclerotic endplate changes, degenerative anterior and posterior osteophytes in this region. There are pronounced degenerative uncovertebral and facet joint changes throughout the entire cervical spine. Assessment/Plan: After reviewing of the patient x-ray images from today's visit, I am concerned that his symptoms are actually stemming from the cervical spine degenerative changes. He has a pain management physician that he wants to see for further treatment options. I am more than happy to see him back as needed. [1] Allergies Allergen Reactions Amiodarone (Bulk) Shortness Of Breath Pulmonary fibrosis Iicvnbw-Jzy-Cwl Reductase Inhibitors Beta-Blockers (Beta-Adrenergic Blocking Agts) Other (See Comments) Fatigue with metoprolol Grass Pollen Other (See Comments) Ragweed Other (See Comments) [2] Current Outpatient Medications: acetaminophen 500 mg coapsule, , Disp: , Rfl: ascorbic acid (VITAMIN C ORAL), Take by mouth ., Disp: , Rfl: aspirin 81 MG EC tablet, Take 1 (one) tablet (81 mg total) by mouth daily ., Disp: , Rfl: cholecalciferol, vitamin D3, 400 unit Tab, Take 400 Units by mouth daily., Disp: , Rfl: cyanocobalamin, vitamin B-12, (VITAMIN B-12 ORAL), Take by mouth ., Disp: , Rfl: fexofenadine (MAKAYLA) 180 MG tablet, Take 1 (one) tablet (180 mg total) by mouth daily ., Disp: , Rfl: hydrochlorothiazide (HYDRODIURIL) 25 MG tablet, , Disp: , Rfl: HYDROcodone-acetaminophen (NORCO) 5-325 mg per tablet, Take 1 tablet by mouth every 4 (four) hours as needed for pain ., Disp: , Rfl: lisinopril (PRINIVIL,ZESTRIL) 10 MG tablet, , Disp: , Rfl: MAGNESIUM CHLORIDE ORAL, Take by mouth., Disp: , Rfl: pravastatin (PRAVACHOL) 40 MG tablet, , Disp: , Rfl: tamsulosin (FLOMAX) 0.4 mg capsule, Take 1 (one) capsule (0.4 mg total) by mouth daily ., Disp: , Rfl: traMADol (ULTRAM) 50 mg tablet, Take 1 (one) tablet (50 mg total) by mouth as needed for pain ., Disp: , Rfl: warfarin (COUMADIN) 1 MG tablet, , Disp: , Rfl: warfarin (COUMADIN) 2 MG tablet, , Disp: , Rfl: warfarin (COUMADIN) 5 MG tablet, , Disp: , Rfl: [3] Social History Socioeconomic History Marital status: Tobacco Use Smoking status: Former Current packs/day: 0.00 Types: Cigarettes Quit date: 06/29/1992 Years since quittin.5 Smokeless tobacco: Never Vaping Use Vaping status: Never Used Substance and Sexual Activity Alcohol use: No Alcohol/week: 0.0 standard drinks of alcohol Drug use: Never AUTHENTICATED BY YULISA KLEIN, ON 01/25/2025 20:35:02 XR CERVICAL SPINE AP/LAT/FLEX/EXT Observed: 01/21/2025 3:12 PM Status: F Source: [facility] Order Comment: Injury/Trauma or Illness?:Illness/Other How long have you had these symptoms (acute/chronic)?:Chronic Reason for exam?:Right arm pain for years without injury. History of cancer?:NO Surgeries, chemotherapy, or radiation?:NO Type of Exam?:Initial Additional signs and symptoms?:States pain started after an open heart surgery. EXAMINATION: XR CERVICAL SPINE AP/LAT/FLEX/EXT 01/21/2025 HISTORY: ORDERING SYSTEM PROVIDED HISTORY: R52; Pain; I10, TECHNOLOGIST PROVIDED HISTORY: Illness/Other Reason for exam: Right arm pain for years without injury. Cancer History: NO Surgery, RadiationHistory: NO Encounter Type: Initial Additional signs and symptoms: States pain started after an open heart surgery. ORDERING SYSTEM PROVIDED DIAGNOSIS CODES: R52 Pain COMPARISON: None TECHNIQUE: 4 views of the cervical spine including flexion and extension views are provided for interpretation. FINDINGS: The cervical spine is visualized from the skull base to the C7 vertebral body on the lateral projections. There is straightening of the normal cervical lordosis. No instability is detected on flexion or extension. There is no acute osseous lesion or fracture. There is mild anterolisthesis of C2 on C3 and C3 on C4. Vertebral body heights are maintained. There is generalized loss of intervertebral disc height at the C3 through T1 levels. There are degenerative sclerotic endplate changes, degenerative anterior and posterior osteophytes in this region. There are pronounced degenerative uncovertebral and facet joint changes throughout the entire cervical spine. The odontoid process is intact. The prevertebral soft tissues are unremarkable. IMPRESSION: No acute osseous abnormality detected. Moderate degenerative change of the cervical spine. No instability detected on flexion or extension. Workstation ID: [id number] Dictated by: LINDA MCRAE on SunJan 23, 2025 9:50:50 AM EDT Transcribed by: LINDA MCRAE on SunJan 23, 2025 9:50:50 AM EDT Finalized by: LINDA MCRAE on SunJan 23, 2025 9:50:50 AM EDT PROGRESS Observed: 01/05/2025 11:27 AM Status: ACTIVE Source: [facility] [address] [facility] [address] [facility] [address] [facility] [id number] Chief Complaint Patient presents with Right Wrist - Pain Seferino Ruiz returns to the office today for The patient's past medical history, surgical history, social history, family history, medications and allergies were reviewed with the patient today and are available in the chart for further review. Allergies[1] Current Medications[2] Past Medical History: Diagnosis Date Atrial fibrillation (HCC) BPH (benign prostatic hyperplasia) BPH (benign prostatic hypertrophy) CAD (coronary artery disease) Constipation Hard of hearing High cholesterol Hypertension Hyperthyroidism Kidney stones Leg weakness Shortness of breath on exertion Tiredness Past Surgical History: Procedure Laterality Date ABLATION WITH PHENOL BACK SURGERY CABG cardiac open heart N/A CARDIAC SURGERY CARPAL TUNNEL RELEASE JOINT REPLACEMENT Bilateral Knees RELEASE CUBITAL TUNNEL Right 08/08/2019 Procedure: Right cubital tunnel release; Surgeon: Yusef Gomes MD; Location: [facility] [place]; Service: Orthopedic Social History[3] ROS: Review of Systems PE: Physical Exam ORTHO: Ortho Exam Imaging: Assessment: Plan: [1] Allergies Allergen Reactions Amiodarone (Bulk) Shortness Of Breath Pulmonary fibrosis Ujmhkfr-Ckn-Qnl Reductase Inhibitors Beta-Blockers (Beta-Adrenergic Blocking Agts) Other (See Comments) Fatigue with metoprolol Grass Pollen Other (See Comments) Ragweed Other (See Comments) [2] Current Outpatient Medications: ascorbic acid (VITAMIN C ORAL), Take by mouth ., Disp: , Rfl: aspirin 81 MG EC tablet, Take 1 (one) tablet (81 mg total) by mouth daily ., Disp: , Rfl: cholecalciferol, vitamin D3, 400 unit Tab, Take 400 Units by mouth daily., Disp: , Rfl: cyanocobalamin, vitamin B-12, (VITAMIN B-12 ORAL), Take by mouth ., Disp: , Rfl: fexofenadine (MAKAYLA) 180 MG tablet, Take 1 (one) tablet (180 mg total) by mouth daily ., Disp: , Rfl: hydrochlorothiazide (HYDRODIURIL) 25 MG tablet, , Disp: , Rfl: HYDROcodone-acetaminophen (NORCO) 5-325 mg per tablet, Take 1 tablet by mouth every 4 (four) hours as needed for pain ., Disp: , Rfl: lisinopril (PRINIVIL,ZESTRIL) 10 MG tablet, , Disp: , Rfl: MAGNESIUM CHLORIDE ORAL, Take by mouth., Disp: , Rfl: pravastatin (PRAVACHOL) 40 MG tablet, , Disp: , Rfl: tamsulosin (FLOMAX) 0.4 mg capsule, Take 1 (one) capsule (0.4 mg total) by mouth daily ., Disp: , Rfl: traMADol (ULTRAM) 50 mg tablet, Take 1 (one) tablet (50 mg total) by mouth as needed for pain ., Disp: , Rfl: warfarin (COUMADIN) 1 MG tablet, , Disp: , Rfl: warfarin (COUMADIN) 2 MG tablet, , Disp: , Rfl: warfarin (COUMADIN) 5 MG tablet, , Disp: , Rfl: acetaminophen 500 mg coapsule, , Disp: , Rfl: [3] Social History Socioeconomic History Marital status: Tobacco Use Smoking status: Former Current packs/day: 0.00 Types: Cigarettes Quit date: 06/29/1992 Years since quittin.5 Smokeless tobacco: Never Vaping Use Vaping status: Never Used Substance and Sexual Activity Alcohol use: No Alcohol/week: 0.0 standard drinks of alcohol Drug use: Never PROGRESS Observed: 01/05/2025 11:27 AM Status: COMPLETED Source: [facility] [address] [facility] [address] [facility] [id number] Chief Complaint Patient presents with - Right Wrist - Pain Seferino Ruiz, 79-year-old male, presents to the office today for Right hand pain with numbness in the right and small finger. 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 However, he continued to have this even after his surgery. He states this started after he had his open heart surgery. He does have decreased range of motion in the wrist. He also has pain with different movements. He is right-handed. He denies any injury to the right wrist. He will take OTC pain medications as needed without significant pain relief. The patient's past medical history, surgical history, social history, family history, medications and allergies were reviewed with the patient today and are available in the chart for further review. Allergies[1] Current Medications[2] Past Medical History: Diagnosis Date - Atrial fibrillation (HCC) - BPH (benign prostatic hyperplasia) - BPH (benign prostatic hypertrophy) - CAD (coronary artery disease) - Constipation - Hard of hearing - High cholesterol - Hypertension - Hyperthyroidism - Kidney stones - Leg weakness - Shortness of breath on exertion - Tiredness Past Surgical History: Procedure Laterality Date - ABLATION WITH PHENOL - BACK SURGERY - CABG - cardiac open heart N/A - CARDIAC SURGERY - CARPAL TUNNEL RELEASE - JOINT REPLACEMENT Bilateral Knees - RELEASE CUBITAL TUNNEL Right 08/08/2019 Procedure: Right cubital tunnel release; Surgeon: Yusef Gomes MD; Location: [facility] [place]; Service: Orthopedic Social History[3] ROS: Review of Systems Constitutional: Negative for activity change and fatigue. HENT: Negative for congestion, hearing loss and trouble swallowing. Eyes: Negative for visual disturbance. Respiratory: Negative for chest tightness and shortness of breath. Cardiovascular: Negative for chest pain and palpitations. Gastrointestinal: Negative for abdominal pain, diarrhea, nausea and vomiting. Endocrine: Negative for polydipsia, polyphagia and polyuria. Genitourinary: Negative for decreased urine volume, difficulty urinating and hematuria. Musculoskeletal: Positive for arthralgias, joint swelling and myalgias. Skin: Negative for color change, rash and wound. Allergic/Immunologic: Negative for immunocompromised state. Neurological: Negative for dizziness, weakness, light-headedness and numbness. Hematological: Does not bruise/bleed easily. Psychiatric/Behavioral: Negative for confusion and sleep disturbance. The patient is not nervous/anxious. PE: Physical Exam Constitutional: Appearance: He is well-developed. HENT: Head: Normocephalic. Eyes: Pupils: Pupils are equal, round, and reactive to light. Cardiovascular: Rate and Rhythm: Normal rate and regular rhythm. Pulmonary: Effort: Pulmonary effort is normal. Breath sounds: Normal breath sounds. Abdominal: General: Bowel sounds are normal. Palpations: Abdomen is soft. Musculoskeletal: General: Swelling and tenderness present. No deformity. Right wrist: Swelling, tenderness, bony tenderness and crepitus present. Decreased range of motion. Normal pulse. Cervical back: Normal range of motion and neck supple. Skin: General: Skin is warm and dry. Neurological: Mental Status: He is alert and oriented to person, place, and time. Imaging: Right wrist: No acute fracture dislocation. Degenerative changes of the hand that are most severe in the intercarpal joints and 1st CMC joint. Assessment/Plan: After examination and reviewing of the patient x-ray images, I did offer him an injection to the right wrist which she gladly excepted. I did this without complications and he tolerated this well. I explained that I cannot guarantee that this will resolve the numbness and tingling but hopefully it will help with the pain in the right wrist. He is able to have these injections every 3 months if they provide him with adequate pain relief. If no improvement in 2 weeks, I will see him back in the office for follow-up. I also discussed with him a possible injection into the CMC joint to see if that would give him some additional relief. He is to continue with any OTC pain medications as needed. MD [place] Injection/Arthrocentesis: R radiocarpal Performed by: Yulisa Klein CNP Authorized by: Yulisa Klein CNP Consent given by: Patient Time out: Immediately prior to the procedure a time out was called Physician or proceduralist has discussed critical or nonroutine steps, procedure duration and anticipated blood loss: Yes Supporting Documentation: Indications: Pain and diagnostic evaluation Procedure Details: Location: Wrist Site: R radiocarpal Prep: patient was prepped and draped in usual sterile fashion Needle size: 22 G Approach: Dorsal Medications: 40 mg triamcinolone acetonide 40 mg/mL Anesthetic amount (mL): 1 Patient tolerance: Patient tolerated the procedure well with no immediate complications [1] Allergies Allergen Reactions - Amiodarone (Bulk) Shortness Of Breath Pulmonary fibrosis - Dcgcwmz-Xwr-Cbp Reductase Inhibitors - Beta-Blockers (Beta-Adrenergic Blocking Agts) Other (See Comments) Fatigue with metoprolol - Grass Pollen Other (See Comments) - Ragweed Other (See Comments) [2] Current Outpatient Medications: - ascorbic acid (VITAMIN C ORAL), Take by mouth ., Disp: , Rfl: - aspirin 81 MG EC tablet, Take 1 (one) tablet (81 mg total) by mouth daily ., Disp: , Rfl: - cholecalciferol, vitamin D3, 400 unit Tab, Take 400 Units by mouth daily., Disp: , Rfl: - cyanocobalamin, vitamin B-12, (VITAMIN B-12 ORAL), Take by mouth ., Disp: , Rfl: - fexofenadine (MAKAYLA) 180 MG tablet, Take 1 (one) tablet (180 mg total) by mouth daily ., Disp: , Rfl: - hydrochlorothiazide (HYDRODIURIL) 25 MG tablet, , Disp: , Rfl: - HYDROcodone-acetaminophen (NORCO) 5-325 mg per tablet, Take 1 tablet by mouth every 4 (four) hours as needed for pain ., Disp: , Rfl: - lisinopril (PRINIVIL,ZESTRIL) 10 MG tablet, , Disp: , Rfl: - MAGNESIUM CHLORIDE ORAL, Take by mouth., Disp: , Rfl: - pravastatin (PRAVACHOL) 40 MG tablet, , Disp: , Rfl: - tamsulosin (FLOMAX) 0.4 mg capsule, Take 1 (one) capsule (0.4 mg total) by mouth daily ., Disp: , Rfl: - traMADol (ULTRAM) 50 mg tablet, Take 1 (one) tablet (50 mg total) by mouth as needed for pain ., Disp: , Rfl: - warfarin (COUMADIN) 1 MG tablet, , Disp: , Rfl: - warfarin (COUMADIN) 2 MG tablet, , Disp: , Rfl: - warfarin (COUMADIN) 5 MG tablet, , Disp: , Rfl: - acetaminophen 500 mg coapsule, , Disp: , Rfl: [3] Social History Socioeconomic History - Marital status: Tobacco Use - Smoking status: Former Current packs/day: 0.00 Types: Cigarettes Quit date: 06/29/1992 Years since quittin.5 - Smokeless tobacco: Never Vaping Use - Vaping status: Never Used Substance and Sexual Activity - Alcohol use: No Alcohol/week: 0.0 standard drinks of alcohol - Drug use: Never AUTHENTICATED BY YULISA KLEIN, ON 01/12/2025 16:34:30 XR HAND RIGHT 3+ VIEWS (STANDARD) Observed: 01/05/2025 10:24 AM Status: F Source: [facility] Order Comment: Injury/Trauma or Illness?:Illness/Other How long have you had these symptoms (acute/chronic)?:Chronic Reason for exam?:Right hand pain with numbness in the right and small finger after having open heart surgery. No injury History of cancer?:NO Surgeries, chemotherapy, or radiation?:NO Type of Exam?:Initial Additional signs and symptoms?:none EXAMINATION: XR HAND RIGHT 3+ VIEWS (STANDARD) 01/05/2025 HISTORY: ORDERING SYSTEM PROVIDED HISTORY: Pain, TECHNOLOGIST PROVIDED HISTORY: Illness/Other Reason for exam: Right hand pain with numbness in the right and small finger after having open heart surgery. No injury Cancer History: NO Surgery, RadiationHistory: NO Encounter Type: Initial Additional signs and symptoms: none ORDERING SYSTEM PROVIDED DIAGNOSIS CODES: R52 Pain COMPARISON: Right wrist study from 09/30/2018 TECHNIQUE: Three views of the right hand are provided for interpretation. FINDINGS: No acute osseous lesion, fracture or subluxation is detected. There are degenerative changes of the interphalangeal joints. These changes are most consistent with osteoarthritis and are most pronounced in the distal interphalangeal joints of the 2nd through 4th digits. There are moderate to severe degenerative changes of the 1st CMC joint. These changes appears stable in the interval since the prior study. There are severe degenerative changes of the radiocarpal joint which are stable in the interval. There is marked widening of the scapholunate interval. This finding was present on the prior study as well. The overlying soft tissues appear normal. No radiopaque foreign body is detected. IMPRESSION: No acute osseous abnormality. Degenerative changes of the hand that are most severe in the intercarpal joints and 1st CMC joint. Workstation ID: [id number] Dictated by: LINDA MCRAE on SunJan 05, 2025 4:37:20 PM EDT Transcribed by: LINDA MCRAE on SunJan 05, 2025 4:37:20 PM EDT Finalized by: LINDA MCRAE on SunJan 05, 2025 4:37:20 PM EDT ALLERGIES DATE TYPE / CODE NAME / CODE REACTION SEVERITY SOURCE 11/21/2019 Drug Class/07590373 3(SNOMED CT) BETA-BLOCKERS (BETA-ADRENERGIC BLOCKING AGTS) OTHER: SEE João [facility] 11/21/2019 Drug Class/70959265 3(SNOMED CT) BETA-BLOCKERS (BETA-ADRENERGIC BLOCKING AGTS) Other [facility] 04/18/2018 Drug Class/80588779 3(SNOMED CT) WTSHWWX-[id number]-DGY REDUCTASE INHIBITORS Myalgia [facility] 01/02/2018 DRUG/718179656 (SNOMED CT) AMIODARONE (BULK) SHORTNESS OF [facility] 01/02/2018 DRUG/691642051 (SNOMED CT) AMIODARONE (BULK) Sob High [facility] 01/21/2014 Drug Class/50843020 3(SNOMED CT) [id number] REDUCTASE INHIBITORS Med [facility] 04/23/2007 DRUG INGREDI/931598 003(SNOMED CT) GRASS POLLEN OTHER: SEE [facility] 04/23/2007 Environ/202695 006(SNOMED CT) RAGWEED OTHER: SEE [facility] 04/23/2007 Environ/717264 006(SNOMED CT) TREES OTHER: SEE [facility] 04/23/2007 DRUG INGREDI/130398 003(SNOMED CT) GRASS POLLEN Other [facility] 04/23/2007 Drug Class/05730726 3(SNOMED CT) RAGWEED Other [facility] ENCOUNTERS ADMIT/DISCHARGE ACCOUNT NUMBER ADMITTING ENCOUNTER CLASS LOCATION SOURCE 03/13/2025/03/13/20 25 [id number] [facility]25[facility]01/26/20 25 [id number] YULISA KLEIN [facility]01/22/20 25 [id number] [facility]01/10/20 25 [id number] YULISA KLEIN [facility]/05/[facility]25/01/06/20 25 [id number] Ambulatory Building:[facility] Ambulatory PAYERS ENCOUNTER GUARANTOR PAYER SUBSCRIBER SOURCE 03/13/2025 Primary Insuranc e:BRIDGET GARCIA HMOPolicy Number: [id number] Date:[id number] Name:Angelica VALLEJOB: [id number] [facility] [address] [place] [address] 01/21/2025 SEFERINO ELIZONDOB: [address] [place] [address] [phone]: (HP) Primary Insurance:[facility] MANAGED MEDICAREPolicy Number: [id number] Date:7020-08-94[address] [place] [id number]: SEFERINO RUIZDOB: [id number] [address] [place] [address] [phone]: (HP) [facility] 01/21/2025 Secondary Insurance:[facility] MANAGED MEDICAREPolicy Number: [id number] Date:8191-91-37TN [address] [place] [phone]: SEFERINO RUIZDOB: [id number] [address] [place] [address] [phone]: (HP) [facility] 01/21/2025 SEFERINO RUIZDOB: [address], [place] [address]Knj: (HP) Primary Insurance:O MANAGED MEDICAREPolicy Number: [id number] Date:2774-14-99[address] [place] [phone]: SEFERINO RUIZDOB: [id number] [address] [place] [address] 11516Zpe: (HP) [facility] 01/21/2025 Secondary Insurance:MM MANAGED MEDICAREPolicy Number: [id number] Date:8655-97-52Y[address] [place] [phone]: SEFERINO RUIZDOB: [id number] [address], [place] [address]Dca: (HP) [facility] 01/05/2025 SEFERINO RUIZDOB: [address] [place] [address] [phone]: (HP) Primary Insurance:MMO MANAGED MEDICAREPolicy Number: [id number] Date:2194-07-71[address] [place] [phone]: SEFERINO RUIZDOB: [id number] [address] [place] [address] [phone]: (HP) [facility] 01/05/2025 Secondary Insurance:MMO MANAGED MEDICAREPolicy Number: [id number] Date:9266-38-33TL [address] [place] [phone]: SEFERINO RUIZDOB: [id number] [address] [place] [address] [phone]: (HP) [facility] 01/05/2025 SEFERINO RUIZDOB: [address] [place] [address] [phone]: (HP) Primary Insurance:MMO MANAGED MEDICAREPolicy Number: [id number] Date:1013-90-60PP [address] [place] [phone]: SEFERINO RUIZDOB: [id number] [address] [place] [address] [phone]: (HP) [facility] 01/05/2025 Secondary Insurance:MMO MANAGED MEDICAREPolicy Number: [id number] Date:5482-49-76[address] [place] [phone]: SEFERINO RUIZDOB: [id number] [place] [address] [phone]: (HP) [facility]
[2025-04-14 10:26] LABS: Hematocrit 44.1 % (40-54); Hemoglobin 14.3 g/dL (13.0-16.5); Immature Granulocytes Count 0.090 X10^3/uL (0.0-0.0); Mean Corp Hgb Conc 32.4 g/dL (32-36); Mean Corpuscular Volume 94.4 fL (80-94); Mean Platelet Vol. 10.7 fl (6.2-12.0); NRBC Flagged by Analyzer 0 % (0-5); Platelet Count 198 K/mm3 (150-450); RBC Distribution Width CV 13.7 % (11.6-14.6); RBC Distribution Width SD 47.4 fl (35.1-43.9); Red Blood Count 4.67 M/mm3 (4.6-6.2); White Blood Count 6.2 K/mm3 (4.4-11.0)
[2025-04-14 10:59] LABS: AST(SGOT) 20 U/L (<=37); Alanine Aminotransfer ALT/SGPT 11 U/L (<=46); Albumin, Serum 3.9 g/dL (3.4-4.8); Alkaline Phosphatase 106 U/L (40-129); Bilirubin, Direct 0.24 mg/dL (0.00-0.30); Cholesterol 136 mg/dL (<=200); Globulin 2.9 g/dL (2.2-4.2); Low Density Lipoprotein Calc. 70 mg/dL; Triglycerides 123 mg/dL; Very Low Density Lipoprotein 25 mg/dL (5-40); cholesterol:hdl ratio screen 3.28
[2025-04-14 11:04] LABS: AST(SGOT) 21 U/L (<=37); Alanine Aminotransfer ALT/SGPT 11 U/L (<=46); Albumin, Serum 4.0 g/dL (3.4-4.8); Alkaline Phosphatase 103 U/L (40-129); Anion Gap 11 (5-15); BUN 26 mg/dL (4-19); BUN/Creat Ratio 17.5 RATIO (10-20); Calcium,Total 9.2 mg/dL (7.6-11.0); Carbon Dioxide 23.0 mmol/L (21.0-32.0); Chloride 106 mmol/L (98-108); Globulin 2.7 g/dL (2.2-4.2); Glucose 115 mg/dL (70-99); Potassium 4.3 mmol/L (3.3-5.1)
== END | disposition home or self-care (01) ==
LOC: MTLAB 08:45
PROVIDERS: Nurse Practitioner Family; PCP Family Medicine; Referring Provider Family Medicine; Visit Provider Family Medicine
DX: I10 Essential (primary) hypertension (principal); E78.00 Pure hypercholesterolemia, unspecified; R73.03 Prediabetes
CPT/HCPCS: 36415; 80053; 80061; 80076; 83036; 84443; 85025

== ENCOUNTER 2025-04-20 10:01 | Outpatient (RCR) | payer MEDICARE, SELFPAY ==
[2025-04-20 12:24] LABS: Prothrombin Time (Protime)PT. 31.1 SECONDS (11.7-14.9)
== END 2025-04-20 18:00 | disposition home or self-care (01) ==
LOC: MTLAB 10:01
PROVIDERS: PCP Family Medicine; Referring Provider Internal Medicine Cardiovascular Disease; Visit Provider Internal Medicine Cardiovascular Disease
DX: Z79.01 Long term (current) use of anticoagulants
CPT/HCPCS: 36415; 85610

== ENCOUNTER 2025-05-21 12:49 | Outpatient (RCR) | payer MEDICARE, SELFPAY ==
[2025-05-21 15:09] LABS: Prothrombin Time (Protime)PT. 30.3 SECONDS (11.7-14.9)
== END 2025-06-13 18:00 | disposition home or self-care (01) ==
LOC: MTLAB 12:49
PROVIDERS: PCP Family Medicine; Referring Provider Internal Medicine Cardiovascular Disease; Visit Provider Internal Medicine Cardiovascular Disease
DX: Z79.01 Long term (current) use of anticoagulants (principal)
CPT/HCPCS: 36415; 85610

== ENCOUNTER → 2025-05-25 | Outpatient (CLI) | payer MEDICARE, SELFPAY ==
[2025-05-25 16:43] LABS: CREATININE FINGERSTICK < 1.0 mg/dL (0.70-1.30); EGFR FINGERSTICK > 60.0000 mL/min (>60)
== END | disposition home or self-care (01) ==
LOC: CT 16:00
PROVIDERS: PCP Family Medicine; Referring Provider Family Medicine; Visit Provider Family Medicine
DX: R10.9 Unspecified abdominal pain (principal)
CPT/HCPCS: 74177; Q9967

== ENCOUNTER 2025-07-01 11:25 | Outpatient (RCR) | payer MEDICARE, SELFPAY ==
[2025-06-17 12:41] LABS: Prothrombin Time (Protime)PT. 35.6 SECONDS (11.7-14.9)
[2025-07-01 15:47] LABS: Prothrombin Time (Protime)PT. 26.6 SECONDS (11.7-14.9)
== END 2025-07-01 18:00 | disposition home or self-care (01) ==
LOC: MTLAB 11:25
PROVIDERS: PCP Family Medicine; Referring Provider Internal Medicine Cardiovascular Disease; Visit Provider Internal Medicine Cardiovascular Disease
DX: Z79.01 Long term (current) use of anticoagulants (principal)
CPT/HCPCS: 36415; 85610